=== PATIENT | female | born 1955 | race Caucasian/White ===

== ENCOUNTER 2018-09-07 14:15 | Inpatient (IN) ==
--- NOTE | 2018-09-07 15:44 | DR.GENAD ---
HPI Time Seen Time Seen by Provider: 09/07/18 15:29 PCP Primary Care Physician: ROCAEL Complaint/Symptoms Chief Complaint:: "I fell the day before yesterday and layed in the floor for around 16 hours until someone found me. I went to [place] and they said that they could not find anything wrong. Since then I can't use my left leg and I have been really confused feeling. I don't think they even scanned my back. I have had to have surgery on it in the past as well." Source History Provided: Patient Mode of Arrival Mode of Arrival: Wheelchair Timing Onset of Chief Complaint: 09/05/18 PMH PMH Past Medical History: Yes Past Medical History: COPD, CVA and Diabetes Past Surgical History: Yes Surgical History: Ortho Surgery and Other Past Surgical History Comment: Back surgery Family History History of Family Medical Conditions: Yes Family Medical History: Diabetes Mellitus, Cancer, [place], Coronary Artery Disease, Sudden Cardiac and Hypertension Social History Does patient currently use any type of tobacco product: No Have you used tobacco products in the last 12 months: No Type of Tobacco Use: None Does any household member use tobacco: No Alcohol Use: None Do you use any recreational Drugs:: No Lives With: Alone Lives Where: Home infectious screening In the last 2 months have you had wt loss of >10#?: NO Have you had fever, night sweats or hemotysis?: No Have you traveled outside the country in the last 6 months?: No Isolation: Standard PE Vital Signs Vitals: Temperature 97.8 F Pulse Rate 80 Respiratory Rate 18 Blood Pressure 143/74 O2 Sat by Pulse Oximetry 95 ROR Labs Reviewed Result Diagrams: 09/07/18 15:53 09/07/18 15:53 Laboratory: WBC 7.9 X10^3/uL (3.6-10.0) 09/07/18 15:53 RBC 3.81 X10^6/uL (3.5-5.4) 09/07/18 15:53 Hgb 12.1 g/dL (12.0-16.0) 09/07/18 15:53 Hct 36.0 % (36.0-47.0) 09/07/18 15:53 MCV 94.5 fL (80.0-100.0) 09/07/18 15:53 MCH 31.6 pg (27.0-34.0) 09/07/18 15:53 MCHC 33.5 g/dL (33.0-35.0) 09/07/18 15:53 RDW 12.9 % (11.6-16.5) 09/07/18 15:53 Plt Count 178 X10^3/uL (150.0-450.0) 09/07/18 15:53 Plt Count Comment Adequate (ADEQUATE) 09/07/18 15:53 MPV 8.7 fL (7.4-11.0) 09/07/18 15:53 Neut % (Auto) 76.3 % (42.0-75.0) H 09/07/18 15:53 Lymph % (Auto) 12.8 % (21.0-51.0) L 09/07/18 15:53 [place] % (Auto) 8.9 % (0.0-13.0) 09/07/18 15:53 Eos % (Auto) 1.0 % (0.9-2.9) 09/07/18 15:53 Baso % (Auto) 1.0 % (0.2-1.0) 09/07/18 15:53 Neut # (Auto) 6.0 x10^3/uL (2.2-4.8) H 09/07/18 15:53 Lymph # (Auto) 1.0 X10^3/uL (1.3-2.9) L 09/07/18 15:53 [place] # (Auto) 0.7 x10^3/uL (0.3-0.8) 09/07/18 15:53 Eos # (Auto) 0.1 x10^3/uL (0.0-0.2) 09/07/18 15:53 Baso # (Auto) 0.1 X10^3/uL (0.0-0.1) 09/07/18 15:53 Absolute Nucleated RBC 0.0 /100WBC 09/07/18 15:53 Plt Morphology Comment Normal (NORMAL) 09/07/18 15:53 RBC Morphology Normal (NORMAL) 09/07/18 15:53 Sodium 139 mmol/L (136-145) 09/07/18 15:53 Corrected Sodium 142 mmol/L (136-145) 09/07/18 15:53 Potassium 4.6 mmol/L (3.5-5.1) 09/07/18 15:53 Chloride 103 mmol/L (98-107) 09/07/18 15:53 Carbon Dioxide 26.2 mmol/L (21-32) 09/07/18 15:53 BUN 21 mg/dL (7-18) H 09/07/18 15:53 Creatinine 0.88 mg/dL (0.55-1.02) 09/07/18 15:53 Est GFR (MDRD) Af Amer > 60 (>60) 09/07/18 15:53 Est GFR (MDRD) Non-Af > 60 (>60) 09/07/18 15:53 Glucose 206 mg/dL (65-99) H 09/07/18 15:53 Calcium 9.4 mg/dL (8.5-10.1) 09/07/18 15:53 Corrected Calcium 10.4 mg/dL (8.5-10.1) H 09/07/18 15:53 Total Bilirubin 0.40 mg/dL (0.2-1.0) 09/07/18 15:53 AST 32 Units/L (15-37) 09/07/18 15:53 ALT 24 Units/L (12-78) 09/07/18 15:53 Alkaline Phosphatase 99 Units/L (46-116) 09/07/18 15:53 Creatine Kinase 461 Units/L (26-192) H 09/07/18 15:53 CK-MB (CK-2) 1.7 ng/mL (0-4.0) 09/07/18 15:53 CK/CKMB % Calc 0.4 % (<4) 09/07/18 15:53 Troponin I < 0.02 ng/mL (0-1.5) 09/07/18 15:53 Total Protein 7.0 g/dL (6.4-8.2) 09/07/18 15:53 Albumin 2.8 g/dL (3.4-5.0) L 09/07/18 15:53 Globulin 4.2 g/dL (2.5-4.5) 09/07/18 15:53 Albumin/Globulin Ratio 0.7 Ratio (1.1-2.1) L 09/07/18 15:53 Specimen Type Catherized urine 09/07/18 17:45 Urine Color Yellow (YELLOW) 09/07/18 17:45 Urine Appearance Cloudy (CLEAR) 09/07/18 17:45 Urine pH 5.0 (5.0 - 8.0) 09/07/18 17:45 Ur Specific [place] 1.020 (1.000-1.030) 09/07/18 17:45 Urine Protein 4+ (NEGATIVE) 09/07/18 17:45 Urine Glucose (UA) Negative (NEGATIVE) 09/07/18 17:45 Urine Ketones 3+ (NEGATIVE) 09/07/18 17:45 Urine Occult Blood 3+ (NEGATIVE) 09/07/18 17:45 Urine Nitrite Negative (NEGATIVE) 09/07/18 17:45 Urine Bilirubin 1+ (NEGATIVE) 09/07/18 17:45 Urine Urobilinogen 1+ (NORMAL) 09/07/18 17:45 Ur Leukocyte Esterase 1+ (NEGATIVE) 09/07/18 17:45 Urine RBC 0-2 /HPF (NONE SEEN) 09/07/18 17:45 Urine WBC 10-20 /HPF (NONE SEEN) 09/07/18 17:45 Ur Squamous Epith Cells Rare /HPF (NEGATIVE) 09/07/18 17:45 Amorphous Sediment Trace /HPF (NEGATIVE) 09/07/18 17:45 Urine Bacteria 4+ /HPF (NEGATIVE) 09/07/18 17:45 Hyaline Casts Few /LPF (NEGATIVE) 09/07/18 17:45 Granular Casts Moderate /LPF (NEGATIVE) 09/07/18 17:45 Ur Culture Indicated? Yes/culture set up 09/07/18 17:45
[2018-09-07 15:58] LABS: BASOPHILS # (AUTO) 0.1 X10^3/uL (0.0-0.1); EOSINOPHILS # (AUTO) 0.1 x10^3/uL (0.0-0.2); HEMOGLOBIN 12.1 g/dL (12.0-16.0); LYMPHOCYTES % (AUTO) 12.8 % (21.0-51.0); MEAN CORPUSCULAR HEMOGLOBIN 31.6 pg (27.0-34.0); MEAN CORPUSCULAR HGB CONC 33.5 g/dL (33.0-35.0); MEAN CORPUSCULAR VOLUME 94.5 fL (80.0-100.0); MEAN PLATELET VOLUME 8.7 fL (7.4-11.0); MONOCYTES # (AUTO) 0.7 x10^3/uL (0.3-0.8); MONOCYTES % (AUTO) 8.9 % (0.0-13.0); NEUTROPHILS % (AUTO) 76.3 % (42.0-75.0); PLATELET COUNT 178 X10^3/uL (150.0-450.0); RED BLOOD COUNT 3.81 X10^6/uL (3.5-5.4); RED CELL DISTRIBUTION WIDTH 12.9 % (11.6-16.5); WHITE BLOOD COUNT 7.9 X10^3/uL (3.6-10.0)
[2018-09-07 16:17] LABS: BLOOD UREA NITROGEN 21 mg/dL (7-18); CALCIUM 9.4 mg/dL (8.5-10.1); CARBON DIOXIDE 26.2 mmol/L (21-32); CHLORIDE 103 mmol/L (98-107); COR NA(FOR HYPERGLY) 142 mmol/L (136-145); CREATININE 0.88 mg/dL (0.55-1.02); SODIUM 139 mmol/L (136-145); TROPONIN I < 0.02 ng/mL (0-1.5); eGFR NON BLACK RACES > 60 (>60)
[2018-09-07 16:21] LABS: ALANINE AMINOTRANSFERASE 24 Units/L (12-78); ALBUMIN 2.8 g/dL (3.4-5.0); ALKALINE PHOSPHATASE 99 Units/L (46-116); ASPARTATE AMINO TRANSFERASE 32 Units/L (15-37); CKMB % 0.4 % (<4); COR CA(FOR HYPOALB) 10.4 mg/dL (8.5-10.1); CREATINE KINASE 461 Units/L (26-192); CREATINE KINASE MB 1.7 ng/mL (0-4.0)
[2018-09-07 16:26] LABS: PLATELET MORPHOLOGY COMMENT NORMAL (NORMAL)
--- NOTE | 2018-09-07 17:41 | RAD ---
Exam: Portable chest History: 63-year-old female with confusion. Comparison: None Findings: Mild cardiomegaly is seen. No significant vascular congestion however. Lungs are clear with no infiltrate or significant effusion on either side. A rounded opacity projecting over the cardiac silhouette may represent a large hiatal hernia. Bony thorax is unremarkable. Impression: 1. Mild cardiomegaly. Otherwise no acute abnormality is seen on this exam. 2. Large hiatal hernia is suspected. This could be confirmed with a lateral chest radiograph. Reported By:
[2018-09-07 17:56] LABS: BILIRUBIN,URINE 1+ (NEGATIVE); BLOOD/HEMOGLOBIN,URINE 3+ (NEGATIVE); GLUCOSE, URINE NEGATIVE (NEGATIVE); KETONES,URINE 3+ (NEGATIVE); LEUKOCYTE ESTERASE ,URINE 1+ (NEGATIVE); NITRITES,URINE NEGATIVE (NEGATIVE); PROTEIN,URINE 4+ (NEGATIVE); UROBILINOGEN,URINE 1+ (NORMAL)
[2018-09-07 18:00] LABS: APPEARANCE,URINE CLOUDY (CLEAR); COLOR,URINE YELLOW (YELLOW)
[2018-09-07 18:15] LABS: AMORPHOUS SEDIMENT,UR TRACE /HPF (NEGATIVE); BACTERIA,URINE 4+ /HPF (NEGATIVE); GRANULAR CASTS,URINE MODERATE /LPF (NEGATIVE); HYALINE CASTS, URINE FEW /LPF (NEGATIVE); RBC,URINE 0-2 /HPF (NONE SEEN); SQUAMOUS EPITHELIAL CELL,UR RARE /HPF (NEGATIVE)
[2018-09-07 22:15] LABS: BILIRUBIN,URINE NEGATIVE (NEGATIVE); BLOOD/HEMOGLOBIN,URINE 3+ (NEGATIVE); GLUCOSE, URINE NEGATIVE (NEGATIVE); KETONES,URINE 3+ (NEGATIVE); LEUKOCYTE ESTERASE ,URINE 1+ (NEGATIVE); NITRITES,URINE POSITIVE (NEGATIVE); PROTEIN,URINE 3+ (NEGATIVE); UROBILINOGEN,URINE NORMAL (NORMAL)
[2018-09-07 22:28] LABS: COLOR,URINE YELLOW (YELLOW)
[2018-09-07 22:29] LABS: APPEARANCE,URINE CLOUDY (CLEAR)
[2018-09-07 22:30] LABS: AMORPHOUS SEDIMENT,UR 1+ /HPF (NEGATIVE); BACTERIA,URINE 4+ /HPF (NEGATIVE); SQUAMOUS EPITHELIAL CELL,UR FEW /HPF (NEGATIVE)
[2018-09-07] MEDS: ZOFRAN INJ 4 MG VIAL IVP PRN (23:05)
[2018-09-07] MEDS: NS 1000 ML 1,000 ML IV SCH (23:05)
[2018-09-07 23:41] LABS: CKMB % 0.5 % (<4); CREATINE KINASE 360 Units/L (26-192); CREATINE KINASE MB 1.7 ng/mL (0-4.0); TROPONIN I < 0.02 ng/mL (0-1.5)
[2018-09-08] MEDS ORDERED: ULTRAM ONE ×2 (01:04→05:37)
[2018-09-08] MEDS: ULTRAM PO PRN ×5 (01:10→20:39)
[2018-09-08 05:17] LABS: BASOPHILS % (AUTO) 0.7 % (0.2-1.0); EOSINOPHILS # (AUTO) 0.2 x10^3/uL (0.0-0.2); EOSINOPHILS % (AUTO) 2.5 % (0.9-2.9); HEMATOCRIT 34.3 % (36.0-47.0); HEMOGLOBIN 11.5 g/dL (12.0-16.0); LYMPHOCYTES # (AUTO) 1.5 X10^3/uL (1.3-2.9); LYMPHOCYTES % (AUTO) 24.1 % (21.0-51.0); MEAN CORPUSCULAR HEMOGLOBIN 31.9 pg (27.0-34.0); MEAN CORPUSCULAR HGB CONC 33.5 g/dL (33.0-35.0); MEAN CORPUSCULAR VOLUME 95.1 fL (80.0-100.0); MEAN PLATELET VOLUME 8.7 fL (7.4-11.0); MONOCYTES # (AUTO) 0.7 x10^3/uL (0.3-0.8); MONOCYTES % (AUTO) 10.4 % (0.0-13.0); NEUTROPHILS % (AUTO) 62.3 % (42.0-75.0); PLATELET COUNT 179 X10^3/uL (150.0-450.0); RED CELL DISTRIBUTION WIDTH 12.6 % (11.6-16.5); WHITE BLOOD COUNT 6.4 X10^3/uL (3.6-10.0)
[2018-09-08 05:31] LABS: ALANINE AMINOTRANSFERASE 22 Units/L (12-78); ALBUMIN 2.6 g/dL (3.4-5.0); ALKALINE PHOSPHATASE 85 Units/L (46-116); ASPARTATE AMINO TRANSFERASE 25 Units/L (15-37); BLOOD UREA NITROGEN 17 mg/dL (7-18); CALCIUM 8.9 mg/dL (8.5-10.1); CARBON DIOXIDE 26.5 mmol/L (21-32); CHLORIDE 104 mmol/L (98-107); COR NA(FOR HYPERGLY) 141 mmol/L (136-145); CREATININE 0.75 mg/dL (0.55-1.02); MAGNESIUM 1.7 mg/dL (1.7-2.9); SODIUM 140 mmol/L (136-145); TOTAL PROTEIN 6.5 g/dL (6.4-8.2); eGFR NON BLACK RACES > 60 (>60)
[2018-09-08 05:55] LABS: CKMB % 0.5 % (<4); CREATINE KINASE 294 Units/L (26-192); CREATINE KINASE MB 1.4 ng/mL (0-4.0); TROPONIN I < 0.02 ng/mL (0-1.5)
[2018-09-08] MEDS ORDERED: DUONEB 0.5 MG/3 MG NEB PRN (09:01)
[2018-09-08] MEDS ORDERED: TYLENOL #3 TAB (W/CODEINE) PO PRN (10:42)
--- NOTE | 2018-09-08 11:06 | VAS ---
HISTORY: Left lower extremity pain and redness Study: Venous Doppler ultrasound left lower extremity Comparison: None TECHNIQUE: Multiple mendosa scale and color flow Doppler images of the deep venous system were obtained of the left lower extremity. FINDINGS: The deep venous system of the left lower extremity was evaluated from the level of the common femoral vein through the popliteal vein. Normal color flow and augmentation can be observed. In addition, normal compression is seen throughout the deep venous system. IMPRESSION: 1. Negative for DVT. Reported By:
[2018-09-08] MEDS: ROCEPHIN VIAL 1 GRAM IVP SCH (11:16)
[2018-09-08] MEDS: NS 1000 ML 1,000 ML IV SCH (11:18)
[2018-09-08] MEDS: HumaLOG SC SCH ×2 (12:10→18:26)
[2018-09-08] MEDS: NEURONTIN CAP 300 MG PO SCH ×2 (14:17→21:11)
[2018-09-08] MEDS ORDERED: NEURONTIN TAB 600 MG PO PRN (14:55)
[2018-09-08] MEDS ORDERED: ZOCOR TAB 40 MG PO SCH ×3 (15:00→21:00)
--- NOTE | 2018-09-08 15:00 | DR.H&P ---
H&P - History & Physical for Day of: H&P Date: 09/07/18 - Chief Complaint Chief Complaint: WEAKNESS, FALL, BACK PAIN - History of Present Illness History of Present Illness: 63 WF ER ADMISSION AFTER PRESENTING WITH CO I fell the day before yesterday and layed in the floor for around 16 hours until someone found me. I went to [place] and they said that they could not find anything wrong. Since then I can't use my left leg and I have been really confused feeling. I don't think they even scanned my back. I have had to have surgery on it in the past as well." PT HAD UA IN ER WITH UTI, STARTED ON IV ATBX, ADMITTED FOR TREATMENT AND EVALUATION OF WEAKNESS AND INJURIES FROM FALL. 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, Ortho Surgery - Family History Family Medical History: Diabetes Mellitus, Cancer, [place], Coronary Artery Disease, Sudden Cardiac , Hypertension - Social History Does patient currently use any type of tobacco product: No Have you used tobacco products in the last 12 months: No Type of Tobacco Use: Cigarettes How many years tobacco product used: 30 Does any household member use tobacco: No Alcohol Use: None Drug Use: None - Medications Home Medications: clopidogrel [From Plavix] Allergy (Verified 09/07/18 14:47) levofloxacin [From Levaquin] Allergy (Verified 09/07/18 14:47) nitrofurantoin [From Macrodantin] Allergy (Verified 09/07/18 14:47) Penicillins Allergy (Verified 09/07/18 14:47) CONTINUE taking the following medications acetaminophen-codeine [Tylenol-Codeine #3] 1 tab PO TID PRN 09/07/18 [History] alendronate 70 mg PO WEEKLY 09/07/18 [History] allopurinol 100 mg PO DAILY 09/07/18 [History] aspirin-dipyridamole [Aggrenox] 1 cap PO BID 09/07/18 [History] biotin 10,000 mcg PO DAILY 09/07/18 [History] carvedilol 1.5 tab PO BID 09/07/18 [History] cinnamon bark [Cinnamon] 2,000 mg PO BID 09/07/18 [History] coQ10 (ubiquinol) 300 mg PO HS 09/07/18 [History] cyanocobalamin (vitamin B-12) [Vitamin B-12] 1 tab PO DAILY 09/07/18 [History] folic acid 800 mcg PO DAILY 09/07/18 [History] furosemide 1 tab PO BID 09/07/18 [History] gabapentin 900 mg PO TID 09/07/18 [History] geriatric [id number] [Complete Senior] 1 tab PO DAILY 09/07/18 [History] insulin detemir U-100 [Levemir U-100 Insulin] 80 units SUBCUT BID 09/07/18 [History] insulin lispro [Humalog U-100 Insulin] 8 units SUBCUT AC 09/07/18 [History] melatonin 10 mg PO HS 09/07/18 [History] [id number]-[id number] oil-D3 [Fish Oil-Vit D3] 2 tab PO BID 09/07/18 [History] quetiapine 150 mg PO HS 09/07/18 [History] ranitidine HCl 1 tab PO BID 09/07/18 [History] sertraline 100 mg PO DAILY 09/07/18 [History] simvastatin 40 mg PO QHS 09/07/18 [History] sodium citrate [Nauzene Upset Stomach-Nausea] 230 - 460 mg PO Q6H 09/07/18 [Hist ory] - Review of Systems Constitutional: Weakness Eyes: No Symptoms Reported ENT: No Symptoms Reported Respiratory: No Symptoms Reported Cardiovascular: Edema Gastrointestinal: Nausea Genitourinary: No Symptoms Reported Musculoskeletal: Back Pain, Leg Pain Skin: No Symptoms Reported Neurological: Weakness - Physical Exam Vital Signs: Temperature 98.3 F Pulse Rate [Left Brachial] 70 Pulse Rate [Right Brachial] 79 Pulse Rate 80 Respiratory Rate 20 Blood Pressure [Left Arm] 167/73 Blood Pressure [Right Arm] 137/70 Blood Pressure 143/74 O2 Sat by Pulse Oximetry 90 Oriented: Normal Eyes: Normal Ear: Normal Nose: Normal Throat: Normal Respiratory: RLL Diminished, LLL Diminished Cardiovascular: Normal, Edema : Normal Auscultation: Bowel Sounds: Normal Palpation: Normal Tenderness: Normal Skin: Red, Tender, Hot (LLE) Musculoskeletal: Left, Leg, Back:Thoracic, Back:Lumbar, Swelling, Tender Psychiatric: Anxiety Speech Pattern: Clear, Appropriate - Assessment/Plan (1) Weakness Status: Acute Plan: ADMIT, GENTLE IV HYDRATION. IV ABTX FOR UTI, UC ORDERED. VERIFY HOME MEDICATION. PAIN CONTROL, BLOOD SUGAR MONITORING, SSI. BP MONITORING, CASE MANAGEMENT AND PT CONSULT (2) UTI (urinary tract infection) Status: Acute (3) Diabetes Status: Acute (4) Hypertension Status: Acute (5) Fall Status: Acute (6) Lower back injury Status: Acute - Allergies Allergies/Adverse Reactions: Allergies Allergy/AdvReac Type Severity Reaction Status Date / Time clopidogrel [From Plavix] Allergy Verified 09/07/18 14:47 levofloxacin [From Levaquin] Allergy Verified 09/07/18 14:47 nitrofurantoin Allergy Verified 09/07/18 14:47 [From Macrodantin] Penicillins Allergy Verified 09/07/18 14:47
--- NOTE | 2018-09-08 15:03 | PCM.PROG ---
Progress Note - Progress Note for Day of Date of Exam: 09/08/18 - Subjective Subjective: 63 WF ER ADMISSION ON 09/07 FOLLOWING DIFFUSE WEAKNESS AND FALL WITH NEW BACK INJURY. PT IS DM WITH HTN AND MORBID OBESITY. PT HAS UTI ON ADMISSION, CURRENLTY ON IV ROCEPHIN WITH CULTURE PENDING. PT HAS LE EDEMA, WORSE TO LLE AND REDNESS TO LEFT [place]A AREA AND INCREASED WARMTH. PT CO PAIN TO LLE SINCE FALL. PLAN TO OBTAIN CT L SPINE, CONTINUE BS CONTROL, IV ABTX, REPEAT AM LABS - Past Medical Family Social History Past Med/Fam/Surg Hx: No changes since H&P Allergies: Allergies clopidogrel [From Plavix] Allergy (Verified 09/07/18 14:47) levofloxacin [From Levaquin] Allergy (Verified 09/07/18 14:47) nitrofurantoin [From Macrodantin] Allergy (Verified 09/07/18 14:47) Penicillins Allergy (Verified 09/07/18 14:47) - Review of Systems ROS: No change since H&P - Vital Signs and I&O's Vital Signs: Temperature 98.3 F Pulse Rate [Left Brachial] 70 Pulse Rate [Right Brachial] 79 Pulse Rate 80 Respiratory Rate 20 Blood Pressure [Left Arm] 167/73 Blood Pressure [Right Arm] 137/70 Blood Pressure 143/74 O2 Sat by Pulse Oximetry 90 Intake and Output: Intake & Output 09/06/18 09/07/18 09/08/18 09/09/18 11:59 11:59 11:59 11:59 Intake Total 717 / 717 Output Total 500 / 500 Balance 217 / 217 - Physical Exam Oriented: Normal Eyes: Normal Ear: Normal Nose: Normal Throat: Normal Respiratory: Diminished Cardiovascular: Normal, Edema : Normal Auscultation: Bowel Sounds: Normal Tenderness: Normal Skin: Red, Tender, Hot (LLE) Musculoskeletal: Left, Leg, Back:Thoracic, Back:Lumbar, Swelling, Tender Psychiatric: Anxiety Speech Pattern: Clear, Appropriate - Laboratory and Diagnostics Result Diagrams: 09/08/18 04:58 09/08/18 04:58 Labs: 09/07/18 17:45 Urine,Catheterized Urine Culture - Preliminary Laboratory WBC 6.4 X10^3/uL (3.6-10.0) 09/08/18 04:58 RBC 3.60 X10^6/uL (3.5-5.4) 09/08/18 04:58 Hgb 11.5 g/dL (12.0-16.0) L 09/08/18 04:58 Hct 34.3 % (36.0-47.0) L 09/08/18 04:58 MCV 95.1 fL (80.0-100.0) 09/08/18 04:58 MCH 31.9 pg (27.0-34.0) 09/08/18 04:58 MCHC 33.5 g/dL (33.0-35.0) 09/08/18 04:58 RDW 12.6 % (11.6-16.5) 09/08/18 04:58 Plt Count 179 X10^3/uL (150.0-450.0) 09/08/18 04:58 Plt Count Comment Adequate (ADEQUATE) 09/07/18 15:53 MPV 8.7 fL (7.4-11.0) 09/08/18 04:58 Neut % (Auto) 62.3 % (42.0-75.0) 09/08/18 04:58 Lymph % (Auto) 24.1 % (21.0-51.0) 09/08/18 04:58 [place] % (Auto) 10.4 % (0.0-13.0) 09/08/18 04:58 Eos % (Auto) 2.5 % (0.9-2.9) 09/08/18 04:58 Baso % (Auto) 0.7 % (0.2-1.0) 09/08/18 04:58 Neut # (Auto) 4.0 x10^3/uL (2.2-4.8) 09/08/18 04:58 Lymph # (Auto) 1.5 X10^3/uL (1.3-2.9) 09/08/18 04:58 [place] # (Auto) 0.7 x10^3/uL (0.3-0.8) 09/08/18 04:58 Eos # (Auto) 0.2 x10^3/uL (0.0-0.2) 09/08/18 04:58 Baso # (Auto) 0.0 X10^3/uL (0.0-0.1) 09/08/18 04:58 Absolute Nucleated RBC 0.0 /100WBC 09/08/18 04:58 Plt Morphology Comment Normal (NORMAL) 09/07/18 15:53 RBC Morphology Normal (NORMAL) 09/07/18 15:53 Sodium 140 mmol/L (136-145) 09/08/18 04:58 Corrected Sodium 141 mmol/L (136-145) 09/08/18 04:58 Potassium 4.0 mmol/L (3.5-5.1) 09/08/18 04:58 Chloride 104 mmol/L (98-107) 09/08/18 04:58 Carbon Dioxide 26.5 mmol/L (21-32) 09/08/18 04:58 BUN 17 mg/dL (7-18) 09/08/18 04:58 Creatinine 0.75 mg/dL (0.55-1.02) 09/08/18 04:58 Est GFR (MDRD) Af Amer > 60 (>60) 09/08/18 04:58 Est GFR (MDRD) Non-Af > 60 (>60) 09/08/18 04:58 Glucose 138 mg/dL (65-99) H 09/08/18 04:58 Calcium 8.9 mg/dL (8.5-10.1) 09/08/18 04:58 Corrected Calcium 10.0 mg/dL (8.5-10.1) 09/08/18 04:58 Magnesium 1.7 mg/dL (1.7-2.9) 09/08/18 04:58 Total Bilirubin 0.40 mg/dL (0.2-1.0) 09/08/18 04:58 AST 25 Units/L (15-37) 09/08/18 04:58 ALT 22 Units/L (12-78) 09/08/18 04:58 Alkaline Phosphatase 85 Units/L (46-116) 09/08/18 04:58 Creatine Kinase 294 Units/L (26-192) H 09/08/18 04:58 CK-MB (CK-2) 1.4 ng/mL (0-4.0) 09/08/18 04:58 CK/CKMB % Calc 0.5 % (<4) 09/08/18 04:58 Troponin I < 0.02 ng/mL (0-1.5) 09/08/18 04:58 Total Protein 6.5 g/dL (6.4-8.2) 09/08/18 04:58 Albumin 2.6 g/dL (3.4-5.0) L 09/08/18 04:58 Globulin 3.9 g/dL (2.5-4.5) 09/08/18 04:58 Albumin/Globulin Ratio 0.7 Ratio (1.1-2.1) L 09/08/18 04:58 Specimen Type Catherized urine 09/07/18 22:06 Urine Color Yellow (YELLOW) 09/07/18 22:06 Urine Appearance Cloudy (CLEAR) 09/07/18 22:06 Urine pH 5.0 (5.0 - 8.0) 09/07/18 22:06 Ur Specific [place] 1.020 (1.000-1.030) 09/07/18 22:06 Urine Protein 3+ (NEGATIVE) 09/07/18 22:06 Urine Glucose (UA) Negative (NEGATIVE) 09/07/18 22:06 Urine Ketones 3+ (NEGATIVE) 09/07/18 22:06 Urine Occult Blood 3+ (NEGATIVE) 09/07/18 22:06 Urine Nitrite Positive (NEGATIVE) 09/07/18 22:06 Urine Bilirubin Negative (NEGATIVE) 09/07/18 22:06 Urine Urobilinogen Normal (NORMAL) 09/07/18 22:06 Ur Leukocyte Esterase 1+ (NEGATIVE) 09/07/18 22:06 Urine RBC 3-5 /HPF (NONE SEEN) 09/07/18 22:06 Urine WBC 3-5 /HPF (NONE SEEN) 09/07/18 22:06 Ur Squamous Epith Cells Few /HPF (NEGATIVE) 09/07/18 22:06 Amorphous Sediment 1+ /HPF (NEGATIVE) 09/07/18 22:06 Urine Bacteria 4+ /HPF (NEGATIVE) 09/07/18 22:06 Hyaline Casts Few /LPF (NEGATIVE) 09/07/18 17:45 Granular Casts Moderate /LPF (NEGATIVE) 09/07/18 17:45 Ur Culture Indicated? No/not indicated 09/07/18 22:06 - Plan (1) Weakness Status: Acute Plan: GENTLE IV HYDRATION. IV ABTX FOR UTI, UC ORDERED. VERIFY HOME MEDICATION. PAIN CONTROL, BLOOD SUGAR MONITORING, SSI. BP MONITORING, CASE MANAGEMENT AND PT CONSULT (2) UTI (urinary tract infection) Status: Acute (3) Diabetes Status: Acute (4) Hypertension Status: Acute (5) Fall Status: Acute (6) Lower back injury Status: Acute (7) Edema of left lower extremity Status: Acute Plan: VENOUS DOPPLER.
--- NOTE | 2018-09-08 16:50 | CT ---
HISTORY: Low back pain, history of fall Study: CT lumbar spine without contrast Comparison: None Technique: Multiple axial images of the lumbar spine were obtained from the thoracolumbar junction to the sacrum without the administration of IV contrast. Sagittal and coronal reformats were performed and reviewed. Findings: Alignment of the lumbar spine is maintained. No evidence for acute fracture or subluxation can be identified. Degenerative disc changes are noted throughout the lumbar spine with vacuum nitrogen disc phenomenon at L5-S1 and L1-2. Mild disc ridging and facet arthropathy is noted in the lower lumbar spine. No large soft tissue disc herniation is seen. The surrounding paraspinous soft tissues demonstrate a calcified fibroid uterus. IMPRESSION: 1. Degenerative changes as above with no acute bony findings identified. Reported By:
[2018-09-08] MEDS: SNACK - Diabetic Appropriate PO SCH ×2 (20:36→21:10)
[2018-09-08] MEDS: COREG TAB 12.5 MG PO SCH (20:37)
[2018-09-08] MEDS: ZOCOR TAB 40 MG PO SCH (20:38)
[2018-09-08] MEDS: ZANTAC PO SCH (20:39)
[2018-09-08] MEDS: ZOFRAN INJ 4 MG VIAL IVP PRN (20:49)
[2018-09-08] MEDS: SEROquel TAB 100 MG PO SCH (21:10)
[2018-09-08] MEDS: LEVEMIR SC SCH (21:10)
[2018-09-09] MEDS: NS 1000 ML 1,000 ML IV SCH ×3 (00:34→15:35)
[2018-09-09] MEDS: ULTRAM PO PRN ×2 (01:07→20:40)
[2018-09-09 05:25] LABS: BASOPHILS # (AUTO) 0.1 X10^3/uL (0.0-0.1); BASOPHILS % (AUTO) 1.1 % (0.2-1.0); EOSINOPHILS # (AUTO) 0.3 x10^3/uL (0.0-0.2); EOSINOPHILS % (AUTO) 4.2 % (0.9-2.9); HEMATOCRIT 33.4 % (36.0-47.0); HEMOGLOBIN 11.2 g/dL (12.0-16.0); LYMPHOCYTES % (AUTO) 32.7 % (21.0-51.0); MEAN CORPUSCULAR HEMOGLOBIN 31.6 pg (27.0-34.0); MEAN CORPUSCULAR HGB CONC 33.4 g/dL (33.0-35.0); MEAN CORPUSCULAR VOLUME 94.5 fL (80.0-100.0); MEAN PLATELET VOLUME 9.2 fL (7.4-11.0); MONOCYTES # (AUTO) 0.6 x10^3/uL (0.3-0.8); MONOCYTES % (AUTO) 10.6 % (0.0-13.0); NEUTROPHILS # (AUTO) 3.1 x10^3/uL (2.2-4.8); NEUTROPHILS % (AUTO) 51.4 % (42.0-75.0); PLATELET COUNT 163 X10^3/uL (150.0-450.0); RED BLOOD COUNT 3.54 X10^6/uL (3.5-5.4); RED CELL DISTRIBUTION WIDTH 12.9 % (11.6-16.5)
[2018-09-09] MEDS: NEURONTIN CAP 300 MG PO SCH ×3 (05:25→21:16)
[2018-09-09 05:35] LABS: ALANINE AMINOTRANSFERASE 23 Units/L (12-78); ALBUMIN 2.4 g/dL (3.4-5.0); ALKALINE PHOSPHATASE 71 Units/L (46-116); ASPARTATE AMINO TRANSFERASE 25 Units/L (15-37); BLOOD UREA NITROGEN 17 mg/dL (7-18); CALCIUM 8.6 mg/dL (8.5-10.1); CHLORIDE 106 mmol/L (98-107); COR CA(FOR HYPOALB) 9.9 mg/dL (8.5-10.1); COR NA(FOR HYPERGLY) 142 mmol/L (136-145); CREATININE 0.79 mg/dL (0.55-1.02); SODIUM 141 mmol/L (136-145); eGFR NON BLACK RACES > 60 (>60)
[2018-09-09] MEDS ORDERED: K-RIDER 10 MEQ/NS 100 ML 10 MEQ/100 ML BAG IV PRN ×2 (05:44→05:45)
[2018-09-09] MEDS ORDERED: K-DUR TAB 20 MEQ PO PRN (05:44)
[2018-09-09] MEDS ORDERED: KLOR-CON PO PRN ×2 (05:44→05:45)
[2018-09-09] MEDS ORDERED: MICRO K EXTEN CAP 10 MEQ PO PRN ×2 (05:44→05:45)
[2018-09-09] MEDS ORDERED: POTASSIUM CHL 60 MEQ/NS 0.45% 500 ML IV PRN ×2 (05:44→05:45)
[2018-09-09] MEDS ORDERED: MAGNESIUM SULFATE 1 GRAM/100 mL PREMIX 1 GM/100 ML BAG IV PRN (05:44)
[2018-09-09] MEDS ORDERED: POTASSIUM CHL 40 MEQ/NS 0.45% 500 ML IV PRN ×2 (05:44→05:45)
[2018-09-09] MEDS ORDERED: POTASSIUM CHLORIDE LIQ 20 MEQ UDC PO PRN ×2 (05:44→05:45)
[2018-09-09] MEDS: HumaLOG SC SCH ×3 (06:24→17:15)
[2018-09-09] MEDS: K-DUR TAB 20 MEQ PO PRN (06:46)
[2018-09-09] MEDS: MAGNESIUM SULFATE 1 GRAM/100 mL PREMIX 1 GM/100 ML BAG IV PRN ×2 (06:46→09:02)
[2018-09-09] MEDS ORDERED: ZOLOFT PO ONE (07:14)
[2018-09-09 08:13] VITALS: BMI 45.9
[2018-09-09] MEDS: VITAMIN B-12 PO SCH (08:26)
[2018-09-09] MEDS: LASIX PO SCH (08:27)
[2018-09-09] MEDS: ZANTAC PO SCH ×2 (08:27→20:39)
[2018-09-09] MEDS: COREG TAB 12.5 MG PO SCH ×2 (08:27→20:35)
[2018-09-09] MEDS: ZYLOPRIM PO SCH (08:28)
[2018-09-09] MEDS: ZOLOFT PO SCH (08:28)
[2018-09-09] MEDS: ROCEPHIN VIAL 1 GRAM IVP SCH (08:29)
[2018-09-09] MEDS: PATIENT'S HOME MEDICATION PO SCH ×2 (08:58→20:37)
[2018-09-09] MEDS ORDERED: PATIENT'S HOME MEDICATION PO SCH (09:00)
[2018-09-09] MEDS ORDERED: ZOLOFT PO SCH (09:00)
[2018-09-09] MEDS: LEVEMIR SC SCH ×2 (09:07→20:36)
[2018-09-09 14:31] LABS: STOOL FOR WBC POSITIVE (NEGATIVE)
[2018-09-09 15:13] LABS: CRYPTOSPORIDIUM PARVUM ANTIGEN NEGATIVE (NEGATIVE); GIARDIA LAMBLIA ANTIGEN NEGATIVE (NEGATIVE)
[2018-09-09] MEDS: SNACK - Diabetic Appropriate PO SCH ×2 (20:34)
[2018-09-09] MEDS: SEROquel TAB 100 MG PO SCH (20:38)
[2018-09-09] MEDS: ZOCOR TAB 40 MG PO SCH (20:39)
[2018-09-10] MEDS: NS 1000 ML 1,000 ML IV SCH ×3 (00:30→20:33)
[2018-09-10 05:22] LABS: BASOPHILS # (AUTO) 0.1 X10^3/uL (0.0-0.1); BASOPHILS % (AUTO) 1.2 % (0.2-1.0); EOSINOPHILS # (AUTO) 0.3 x10^3/uL (0.0-0.2); EOSINOPHILS % (AUTO) 4.3 % (0.9-2.9); HEMATOCRIT 31.1 % (36.0-47.0); HEMOGLOBIN 10.4 g/dL (12.0-16.0); LYMPHOCYTES # (AUTO) 2.1 X10^3/uL (1.3-2.9); LYMPHOCYTES % (AUTO) 34.6 % (21.0-51.0); MEAN CORPUSCULAR HEMOGLOBIN 31.5 pg (27.0-34.0); MEAN CORPUSCULAR HGB CONC 33.5 g/dL (33.0-35.0); MEAN CORPUSCULAR VOLUME 94.2 fL (80.0-100.0); MEAN PLATELET VOLUME 8.9 fL (7.4-11.0); MONOCYTES # (AUTO) 0.6 x10^3/uL (0.3-0.8); MONOCYTES % (AUTO) 10.8 % (0.0-13.0); NEUTROPHILS # (AUTO) 2.9 x10^3/uL (2.2-4.8); NEUTROPHILS % (AUTO) 49.1 % (42.0-75.0); PLATELET COUNT 167 X10^3/uL (150.0-450.0); RED CELL DISTRIBUTION WIDTH 12.6 % (11.6-16.5); WHITE BLOOD COUNT 5.9 X10^3/uL (3.6-10.0)
[2018-09-10] MEDS: NEURONTIN CAP 300 MG PO SCH ×3 (05:28→21:25)
[2018-09-10 05:34] LABS: ALANINE AMINOTRANSFERASE 20 Units/L (12-78); ALBUMIN 2.3 g/dL (3.4-5.0); ALKALINE PHOSPHATASE 67 Units/L (46-116); ASPARTATE AMINO TRANSFERASE 15 Units/L (15-37); BLOOD UREA NITROGEN 16 mg/dL (7-18); CALCIUM 8.2 mg/dL (8.5-10.1); CARBON DIOXIDE 27.1 mmol/L (21-32); CHLORIDE 108 mmol/L (98-107); COR CA(FOR HYPOALB) 9.6 mg/dL (8.5-10.1); CREATININE 0.79 mg/dL (0.55-1.02); MAGNESIUM 1.8 mg/dL (1.7-2.9); SODIUM 144 mmol/L (136-145); TOTAL PROTEIN 5.7 g/dL (6.4-8.2); eGFR NON BLACK RACES > 60 (>60)
[2018-09-10] MEDS: K-DUR TAB 20 MEQ PO PRN (06:19)
[2018-09-10] MEDS: HumaLOG SC SCH ×3 (07:39→17:36)
[2018-09-10] MEDS ORDERED: ZOLOFT PO ONE (08:14)
[2018-09-10] MEDS: VITAMIN B-12 PO SCH (08:25)
[2018-09-10] MEDS: ZYLOPRIM PO SCH (08:25)
[2018-09-10] MEDS: LASIX PO SCH (08:25)
[2018-09-10] MEDS: COREG TAB 12.5 MG PO SCH ×2 (08:25→20:33)
[2018-09-10] MEDS: ZOLOFT PO SCH (08:26)
[2018-09-10] MEDS: PATIENT'S HOME MEDICATION PO SCH ×2 (08:26→20:39)
[2018-09-10] MEDS: ZANTAC PO SCH ×2 (08:26→20:34)
[2018-09-10] MEDS: ROCEPHIN VIAL 1 GRAM IVP SCH (08:27)
[2018-09-10] MEDS: LEVEMIR SC SCH (08:38)
[2018-09-10] MEDS: MAGNESIUM SULFATE 1 GRAM/100 mL PREMIX 1 GM/100 ML BAG IV PRN ×2 (09:01→10:36)
[2018-09-10] MEDS ORDERED: VALIUM PO ONE (09:24)
[2018-09-10] MEDS: ULTRAM PO PRN ×2 (12:59→20:34)
--- NOTE | 2018-09-10 16:35 | MRI ---
STUDY: MRI OF THE LUMBAR SPINE HISTORY: Low back pain. Comparison: None. Technique: Multiplanar multi-sequence MRI of the lumbar spine was performed. Sagittal T1, sagittal T2, and STIR images, axial T1, and axial T2 images were obtained. Findings: Sagittal images: Vertebral body heights and alignment are within normal limits. Marrow signal is heterogeneous. There is multilevel chronic degenerative endplate change identified. No significant marrow edema is identified. There is multilevel degenerative disc disease, most notable at L5/S1. There appears to be a small fatty filum terminale. The conus medullaris is normal in appearance terminating at the level of L1/2. Axial images: T12 -- L1: Normal. L1 -- L2: There is a shallow disc bulge, bilateral facet arthropathy and ligamentum flavum infolding. The central canal is adequate. There is mild bilateral neural foraminal stenosis. L2 -- L3: There is a broad-based disc bulge, bilateral facet arthropathy and ligamentum flavum infolding. The combination of these findings results in mild central canal stenosis. There is mild bilateral neural foraminal stenosis. L3 -- L4: There is a broad-based disc bulge, bilateral facet arthropathy and ligamentum flavum infolding. This results in mild central canal stenosis. The neural foramina are adequate. L4 -- L5: There is a broad-based disc bulge, bilateral facet arthropathy and ligamentum flavum infolding. The combination of these findings results in moderate central canal stenosis. The neural foramina are adequate. L5 -- S1: There is a broad-based disc bulge and bilateral facet arthropathy. There appears to be surgical defect from laminectomies at L5. The central canal is adequate. There is [id number] bilateral neural foraminal stenosis. IMPRESSION: 1. Multilevel lumbar spondylosis and postsurgical change at L5. 2. Moderate spinal stenosis at L4/5. 3. Mild spinal stenosis at L2/3 and L3/4. 4. Multilevel neural foraminal stenosis. Please see above for detail. Reported By:
--- NOTE | 2018-09-10 17:30 | PCM.PROG ---
Progress Note - Progress Note for Day of Date of Exam: 09/10/18 - Subjective Subjective: 63 WF ER ADMISSION ON 09/07 FOLLOWING DIFFUSE WEAKNESS AND FALL WITH NEW BACK INJURY. PT IS DM WITH HTN AND MORBID OBESITY. PT HAS UTI ON ADMISSION, CURRENLTY ON IV ROCEPHIN WITH CULTURE POSITIVE FOR +ECOLI. PT HAS LE EDEMA, WORSE TO LLE AND REDNESS TO LEFT GAXIOLA AREA AND INCREASED WARMTH, VENOUS DOPPLER NEGATIVE FOR DVT. PT CO PAIN TO LLE SINCE FALL. PT TO HAVE MRI THIS AM, AND WILL CONSULT CASE MANAGEMENT FOR REHAB THERAPY - Past Medical Family Social History Past Med/Fam/Surg Hx: No changes since H&P Allergies: Allergies clopidogrel [From Plavix] Allergy (Verified 09/07/18 14:47) levofloxacin [From Levaquin] Allergy (Verified 09/07/18 14:47) nitrofurantoin [From Macrodantin] Allergy (Verified 09/07/18 14:47) Penicillins Allergy (Verified 09/07/18 14:47) - Review of Systems ROS: No change since H&P - Vital Signs and I&O's Vital Signs: Temperature 98.2 F Pulse Rate [Left Brachial] 66 Pulse Rate [Right Brachial] 79 Pulse Rate 71 Respiratory Rate 22 Blood Pressure [Left Arm] 145/67 Blood Pressure [Right Arm] 137/70 Blood Pressure 143/74 O2 Sat by Pulse Oximetry 96 Intake and Output: Intake & Output 09/08/18 09/09/18 09/10/18 09/11/18 11:59 11:59 11:59 11:59 Intake Total 717 / 717 1960 / 1960 3260 / 3260 1490 / 1490 Output Total 500 / 500 675 / 675 1825 / 1825 1800 / 1800 Balance 217 / 217 1285 / 1285 1435 / 1435 -310 / -310 - Physical Exam Oriented: Normal Eyes: Normal Ear: Normal Nose: Normal Throat: Normal Respiratory: Diminished Cardiovascular: Normal, Edema : Normal Auscultation: Bowel Sounds: Normal Tenderness: Normal Skin: Red, Tender, Hot (LLE) Musculoskeletal: Left, Leg, Back:Thoracic, Back:Lumbar, Swelling, Tender Psychiatric: Anxiety Speech Pattern: Clear, Appropriate - Laboratory and Diagnostics Result Diagrams: 09/10/18 04:41 09/10/18 14:56 Labs: 09/09/18 13:44 Stool Stool Culture - Preliminary 09/09/18 13:44 Stool - Final 09/07/18 17:45 Urine,Catheterized Urine Culture - Final Escherichia Coli Laboratory WBC 5.9 X10^3/uL (3.6-10.0) 09/10/18 04:41 RBC 3.30 X10^6/uL (3.5-5.4) L 09/10/18 04:41 Hgb 10.4 g/dL (12.0-16.0) L 09/10/18 04:41 Hct 31.1 % (36.0-47.0) L 09/10/18 04:41 MCV 94.2 fL (80.0-100.0) 09/10/18 04:41 MCH 31.5 pg (27.0-34.0) 09/10/18 04:41 MCHC 33.5 g/dL (33.0-35.0) 09/10/18 04:41 RDW 12.6 % (11.6-16.5) 09/10/18 04:41 Plt Count 167 X10^3/uL (150.0-450.0) 09/10/18 04:41 Plt Count Comment Adequate (ADEQUATE) 09/07/18 15:53 MPV 8.9 fL (7.4-11.0) 09/10/18 04:41 Neut % (Auto) 49.1 % (42.0-75.0) 09/10/18 04:41 Lymph % (Auto) 34.6 % (21.0-51.0) 09/10/18 04:41 [place] % (Auto) 10.8 % (0.0-13.0) 09/10/18 04:41 Eos % (Auto) 4.3 % (0.9-2.9) H 09/10/18 04:41 Baso % (Auto) 1.2 % (0.2-1.0) H 09/10/18 04:41 Neut # (Auto) 2.9 x10^3/uL (2.2-4.8) 09/10/18 04:41 Lymph # (Auto) 2.1 X10^3/uL (1.3-2.9) 09/10/18 04:41 [place] # (Auto) 0.6 x10^3/uL (0.3-0.8) 09/10/18 04:41 Eos # (Auto) 0.3 x10^3/uL (0.0-0.2) H 09/10/18 04:41 Baso # (Auto) 0.1 X10^3/uL (0.0-0.1) 09/10/18 04:41 Absolute Nucleated RBC 0.0 /100WBC 09/10/18 04:41 Plt Morphology Comment Normal (NORMAL) 09/07/18 15:53 RBC Morphology Normal (NORMAL) 09/07/18 15:53 Sodium 144 mmol/L (136-145) 09/10/18 04:41 Corrected Sodium TNP 09/10/18 04:41 Potassium 3.7 mmol/L (3.5-5.1) 09/10/18 14:56 Chloride 108 mmol/L (98-107) H 09/10/18 04:41 Carbon Dioxide 27.1 mmol/L (21-32) 09/10/18 04:41 BUN 16 mg/dL (7-18) 09/10/18 04:41 Creatinine 0.79 mg/dL (0.55-1.02) 09/10/18 04:41 Est GFR (MDRD) Af Amer > 60 (>60) 09/10/18 04:41 Est GFR (MDRD) Non-Af > 60 (>60) 09/10/18 04:41 Glucose 68 mg/dL (65-99) 09/10/18 04:41 Calcium 8.2 mg/dL (8.5-10.1) L 09/10/18 04:41 Corrected Calcium 9.6 mg/dL (8.5-10.1) 09/10/18 04:41 Magnesium 1.8 mg/dL (1.7-2.9) 09/10/18 04:41 Total Bilirubin 0.20 mg/dL (0.2-1.0) 09/10/18 04:41 AST 15 Units/L (15-37) 09/10/18 04:41 ALT 20 Units/L (12-78) 09/10/18 04:41 Alkaline Phosphatase 67 Units/L (46-116) 09/10/18 04:41 Creatine Kinase 294 Units/L (26-192) H 09/08/18 04:58 CK-MB (CK-2) 1.4 ng/mL (0-4.0) 09/08/18 04:58 CK/CKMB % Calc 0.5 % (<4) 09/08/18 04:58 Troponin I < 0.02 ng/mL (0-1.5) 09/08/18 04:58 Total Protein 5.7 g/dL (6.4-8.2) L 09/10/18 04:41 Albumin 2.3 g/dL (3.4-5.0) L 09/10/18 04:41 Globulin 3.4 g/dL (2.5-4.5) 09/10/18 04:41 Albumin/Globulin Ratio 0.7 Ratio (1.1-2.1) L 09/10/18 04:41 Specimen Type Catherized urine 09/07/18 22:06 Urine Color Yellow (YELLOW) 09/07/18 22:06 Urine Appearance Cloudy (CLEAR) 09/07/18 22:06 Urine pH 5.0 (5.0 - 8.0) 09/07/18 22:06 Ur Specific [place] 1.020 (1.000-1.030) 09/07/18 22:06 Urine Protein 3+ (NEGATIVE) 09/07/18 22:06 Urine Glucose (UA) Negative (NEGATIVE) 09/07/18 22:06 Urine Ketones 3+ (NEGATIVE) 09/07/18 22:06 Urine Occult Blood 3+ (NEGATIVE) 09/07/18 22:06 Urine Nitrite Positive (NEGATIVE) 09/07/18 22:06 Urine Bilirubin Negative (NEGATIVE) 09/07/18 22:06 Urine Urobilinogen Normal (NORMAL) 09/07/18 22:06 Ur Leukocyte Esterase 1+ (NEGATIVE) 09/07/18 22:06 Urine RBC 3-5 /HPF (NONE SEEN) 09/07/18 22:06 Urine WBC 3-5 /HPF (NONE SEEN) 09/07/18 22:06 Ur Squamous Epith Cells Few /HPF (NEGATIVE) 09/07/18 22:06 Amorphous Sediment 1+ /HPF (NEGATIVE) 09/07/18 22:06 Urine Bacteria 4+ /HPF (NEGATIVE) 09/07/18 22:06 Hyaline Casts Few /LPF (NEGATIVE) 09/07/18 17:45 Granular Casts Moderate /LPF (NEGATIVE) 09/07/18 17:45 Ur Culture Indicated? No/not indicated 09/07/18 22:06 Stool Description 5g,mucoid,brown/yell 09/09/18 13:44 Stl Occult Blood (IFOB) Negative (NEGATIVE) 09/09/18 13:44 Stool for White Cells Positive (NEGATIVE) A 09/09/18 13:44 Stl C. diff Tox B Gene Negative (NEGATIVE) 09/09/18 13:44 Stl C. diff [id number] Negative (NEGATIVE) 09/09/18 13:44 Cryptosporid parvum Ag Negative (NEGATIVE) 09/09/18 13:44 Giardia lamblia Ag Negative (NEGATIVE) 09/09/18 13:44 - Plan (1) Weakness Status: Acute Plan: GENTLE IV HYDRATION. IV ABTX FOR UTI. VERIFY HOME MEDICATION. PAIN CONTROL, BLOOD SUGAR MONITORING, SSI. BP MONITORING, CASE MANAGEMENT AND PT CO NSULT (2) UTI (urinary tract infection) Status: Acute (3) Diabetes Status: Acute (4) Hypertension Status: Acute (5) Fall Status: Acute (6) Lower back injury Status: Acute (7) Edema of left lower extremity Status: Acute Plan: VENOUS DOPPLER. (8) Degenerative lumbar spinal stenosis Status: Acute Plan: PAIN CONTROL, PHYSICAL THERAPY
[2018-09-10] MEDS: SNACK - Diabetic Appropriate PO SCH ×2 (20:32)
[2018-09-10] MEDS: ZOCOR TAB 40 MG PO SCH (20:35)
[2018-09-10] MEDS: SEROquel TAB 100 MG PO SCH (20:36)
[2018-09-11] MEDS: ULTRAM PO PRN ×2 (00:56→21:13)
[2018-09-11] MEDS: NS 1000 ML 1,000 ML IV SCH ×3 (02:05→16:17)
[2018-09-11 06:11] LABS: BASOPHILS # (AUTO) 0.1 X10^3/uL (0.0-0.1); BASOPHILS % (AUTO) 0.9 % (0.2-1.0); EOSINOPHILS # (AUTO) 0.3 x10^3/uL (0.0-0.2); EOSINOPHILS % (AUTO) 5.2 % (0.9-2.9); HEMATOCRIT 33.3 % (36.0-47.0); LYMPHOCYTES % (AUTO) 31.5 % (21.0-51.0); MEAN CORPUSCULAR HEMOGLOBIN 31.3 pg (27.0-34.0); MEAN CORPUSCULAR VOLUME 94.7 fL (80.0-100.0); MEAN PLATELET VOLUME 8.8 fL (7.4-11.0); MONOCYTES # (AUTO) 0.7 x10^3/uL (0.3-0.8); MONOCYTES % (AUTO) 10.5 % (0.0-13.0); NEUTROPHILS # (AUTO) 3.3 x10^3/uL (2.2-4.8); NEUTROPHILS % (AUTO) 51.9 % (42.0-75.0); PLATELET COUNT 164 X10^3/uL (150.0-450.0); RED BLOOD COUNT 3.52 X10^6/uL (3.5-5.4); RED CELL DISTRIBUTION WIDTH 12.5 % (11.6-16.5); WHITE BLOOD COUNT 6.4 X10^3/uL (3.6-10.0)
[2018-09-11 06:21] LABS: ALANINE AMINOTRANSFERASE 19 Units/L (12-78); ALBUMIN 2.3 g/dL (3.4-5.0); ALKALINE PHOSPHATASE 68 Units/L (46-116); ASPARTATE AMINO TRANSFERASE 14 Units/L (15-37); BLOOD UREA NITROGEN 14 mg/dL (7-18); CALCIUM 8.3 mg/dL (8.5-10.1); CARBON DIOXIDE 27.3 mmol/L (21-32); CHLORIDE 109 mmol/L (98-107); COR CA(FOR HYPOALB) 9.7 mg/dL (8.5-10.1); CREATININE 0.83 mg/dL (0.55-1.02); SODIUM 144 mmol/L (136-145); TOTAL PROTEIN 5.7 g/dL (6.4-8.2); eGFR NON BLACK RACES > 60 (>60)
[2018-09-11] MEDS: NEURONTIN CAP 300 MG PO SCH ×3 (06:21→21:10)
[2018-09-11] MEDS: HumaLOG SC SCH ×3 (06:21→17:23)
[2018-09-11] MEDS: K-DUR TAB 20 MEQ PO PRN (06:38)
[2018-09-11] MEDS ORDERED: ZOLOFT PO ONE (09:24)
[2018-09-11] MEDS: ZOLOFT PO SCH (09:31)
[2018-09-11] MEDS: ROCEPHIN VIAL 1 GRAM IVP SCH (09:31)
[2018-09-11] MEDS: LASIX PO SCH (09:31)
[2018-09-11] MEDS: ZYLOPRIM PO SCH (09:31)
[2018-09-11] MEDS: ZANTAC PO SCH ×2 (09:31→20:26)
[2018-09-11] MEDS: VITAMIN B-12 PO SCH (09:31)
[2018-09-11] MEDS: COREG TAB 12.5 MG PO SCH ×2 (09:31→20:26)
[2018-09-11] MEDS: KENALOG CREAM TOP SCH ×3 (13:01→21:09)
[2018-09-11] MEDS: PATIENT'S HOME MEDICATION PO SCH ×2 (13:41→20:27)
[2018-09-11] MEDS: MAGNESIUM SULFATE 1 GRAM/100 mL PREMIX 1 GM/100 ML BAG IV PRN ×2 (14:59→16:37)
[2018-09-11] MEDS: HumuLIN R SUBCUT PRN ×2 (16:16→21:10)
--- NOTE | 2018-09-11 16:33 | PCM.PROG ---
Progress Note - Progress Note for Day of Date of Exam: 09/11/18 - Subjective Subjective: -63 WF ER ADMISSION ON 09/07 FOLLOWING DIFFUSE WEAKNESS AND FALL WITH NEW BACK INJURY. PT IS DM WITH HTN AND MORBID OBESITY. PT HAS UTI ON ADMISSION, CURRENLTY ON IV ROCEPHIN WITH CULTURE POSITIVE FOR +ECOLI. PT HAS LE EDEMA, WORSE TO LLE AND REDNESS TO LEFT GAXIOLA AREA AND INCREASED WARMTH, VENOUS DOPPLER NEGATIVE FOR DVT. PT CO PAIN TO LLE SINCE FALL. 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 CONSULTED CASE MANAGEMENT FOR REHAB THERAPY - Past Medical Family Social History Past Med/Fam/Surg Hx: No changes since H&P Allergies: Allergies clopidogrel [From Plavix] Allergy (Verified 09/07/18 14:47) levofloxacin [From Levaquin] Allergy (Verified 09/07/18 14:47) nitrofurantoin [From Macrodantin] Allergy (Verified 09/07/18 14:47) Penicillins Allergy (Verified 09/07/18 14:47) - Review of Systems ROS: No change since H&P - Vital Signs and I&O's Vital Signs: Temperature 97.6 F Pulse Rate [Left Brachial] 70 Pulse Rate [Right Brachial] 79 Pulse Rate 81 Respiratory Rate 20 Blood Pressure [Left Arm] 149/65 Blood Pressure [Right Arm] 137/70 Blood Pressure 143/74 O2 Sat by Pulse Oximetry 91 Intake and Output: Intake & Output 09/09/18 09/10/18 09/11/18 09/12/18 11:59 11:59 11:59 11:59 Intake Total 1959 / 1959 3260 / 3260 3224 / 3224 680 / 680 Output Total 675 / 675 1825 / 1825 3000 / 3000 Balance 1285 / 1285 1435 / 1435 224 / 224 680 / 680 - Physical Exam Oriented: Normal Eyes: Normal Ear: Normal Nose: Normal Throat: Normal Respiratory: Diminished Cardiovascular: Normal, Edema : Normal Auscultation: Bowel Sounds: Normal Tenderness: Normal Skin: Red, Tender, Hot (LLE) Musculoskeletal: Left, Leg, Back:Thoracic, Back:Lumbar, Swelling, Tender Psychiatric: Anxiety Speech Pattern: Clear, Appropriate - Laboratory and Diagnostics Result Diagrams: 09/11/18 05:43 09/11/18 05:43 Labs: 09/09/18 13:44 Stool Stool Culture - Final 09/09/18 13:44 Stool - Final 09/07/18 17:45 Urine,Catheterized Urine Culture - Final Escherichia Coli Laboratory WBC 6.4 X10^3/uL (3.6-10.0) 09/11/18 05:43 RBC 3.52 X10^6/uL (3.5-5.4) 09/11/18 05:43 Hgb 11.0 g/dL (12.0-16.0) L 09/11/18 05:43 Hct 33.3 % (36.0-47.0) L 09/11/18 05:43 MCV 94.7 fL (80.0-100.0) 09/11/18 05:43 MCH 31.3 pg (27.0-34.0) 09/11/18 05:43 MCHC 33.0 g/dL (33.0-35.0) 09/11/18 05:43 RDW 12.5 % (11.6-16.5) 09/11/18 05:43 Plt Count 164 X10^3/uL (150.0-450.0) 09/11/18 05:43 Plt Count Comment Adequate (ADEQUATE) 09/07/18 15:53 MPV 8.8 fL (7.4-11.0) 09/11/18 05:43 Neut % (Auto) 51.9 % (42.0-75.0) 09/11/18 05:43 Lymph % (Auto) 31.5 % (21.0-51.0) 09/11/18 05:43 [place] % (Auto) 10.5 % (0.0-13.0) 09/11/18 05:43 Eos % (Auto) 5.2 % (0.9-2.9) H 09/11/18 05:43 Baso % (Auto) 0.9 % (0.2-1.0) 09/11/18 05:43 Neut # (Auto) 3.3 x10^3/uL (2.2-4.8) 09/11/18 05:43 Lymph # (Auto) 2.0 X10^3/uL (1.3-2.9) 09/11/18 05:43 [place] # (Auto) 0.7 x10^3/uL (0.3-0.8) 09/11/18 05:43 Eos # (Auto) 0.3 x10^3/uL (0.0-0.2) H 09/11/18 05:43 Baso # (Auto) 0.1 X10^3/uL (0.0-0.1) 09/11/18 05:43 Absolute Nucleated RBC 0.0 /100WBC 09/11/18 05:43 Plt Morphology Comment Normal (NORMAL) 09/07/18 15:53 RBC Morphology Normal (NORMAL) 09/07/18 15:53 Sodium 144 mmol/L (136-145) 09/11/18 05:43 Corrected Sodium TNP 09/11/18 05:43 Potassium 3.5 mmol/L (3.5-5.1) 09/11/18 05:43 Chloride 109 mmol/L (98-107) H 09/11/18 05:43 Carbon Dioxide 27.3 mmol/L (21-32) 09/11/18 05:43 BUN 14 mg/dL (7-18) 09/11/18 05:43 Creatinine 0.83 mg/dL (0.55-1.02) 09/11/18 05:43 Est GFR (MDRD) Af Amer > 60 (>60) 09/11/18 05:43 Est GFR (MDRD) Non-Af > 60 (>60) 09/11/18 05:43 Glucose 109 mg/dL (65-99) H 09/11/18 05:43 Calcium 8.3 mg/dL (8.5-10.1) L 09/11/18 05:43 Corrected Calcium 9.7 mg/dL (8.5-10.1) 09/11/18 05:43 Magnesium 1.9 mg/dL (1.7-2.9) 09/11/18 05:43 Total Bilirubin 0.20 mg/dL (0.2-1.0) 09/11/18 05:43 AST 14 Units/L (15-37) L 09/11/18 05:43 ALT 19 Units/L (12-78) 09/11/18 05:43 Alkaline Phosphatase 68 Units/L (46-116) 09/11/18 05:43 Creatine Kinase 294 Units/L (26-192) H 09/08/18 04:58 CK-MB (CK-2) 1.4 ng/mL (0-4.0) 09/08/18 04:58 CK/CKMB % Calc 0.5 % (<4) 09/08/18 04:58 Troponin I < 0.02 ng/mL (0-1.5) 09/08/18 04:58 Total Protein 5.7 g/dL (6.4-8.2) L 09/11/18 05:43 Albumin 2.3 g/dL (3.4-5.0) L 09/11/18 05:43 Globulin 3.4 g/dL (2.5-4.5) 09/11/18 05:43 Albumin/Globulin Ratio 0.7 Ratio (1.1-2.1) L 09/11/18 05:43 Specimen Type Catherized urine 09/07/18 22:06 Urine Color Yellow (YELLOW) 09/07/18 22:06 Urine Appearance Cloudy (CLEAR) 09/07/18 22:06 Urine pH 5.0 (5.0 - 8.0) 09/07/18 22:06 Ur Specific [place] 1.020 (1.000-1.030) 09/07/18 22:06 Urine Protein 3+ (NEGATIVE) 09/07/18 22:06 Urine Glucose (UA) Negative (NEGATIVE) 09/07/18 22:06 Urine Ketones 3+ (NEGATIVE) 09/07/18 22:06 Urine Occult Blood 3+ (NEGATIVE) 09/07/18 22:06 Urine Nitrite Positive (NEGATIVE) 09/07/18 22:06 Urine Bilirubin Negative (NEGATIVE) 09/07/18 22:06 Urine Urobilinogen Normal (NORMAL) 09/07/18 22:06 Ur Leukocyte Esterase 1+ (NEGATIVE) 09/07/18 22:06 Urine RBC 3-5 /HPF (NONE SEEN) 09/07/18 22:06 Urine WBC 3-5 /HPF (NONE SEEN) 09/07/18 22:06 Ur Squamous Epith Cells Few /HPF (NEGATIVE) 09/07/18 22:06 Amorphous Sediment 1+ /HPF (NEGATIVE) 09/07/18 22:06 Urine Bacteria 4+ /HPF (NEGATIVE) 09/07/18 22:06 Hyaline Casts Few /LPF (NEGATIVE) 09/07/18 17:45 Granular Casts Moderate /LPF (NEGATIVE) 09/07/18 17:45 Ur Culture Indicated? No/not indicated 09/07/18 22:06 Stool Description 5g,mucoid,brown/yell 09/09/18 13:44 Stl Occult Blood (IFOB) Negative (NEGATIVE) 09/09/18 13:44 Stool for White Cells Positive (NEGATIVE) A 09/09/18 13:44 Stl C. diff Tox B Gene Negative (NEGATIVE) 09/09/18 13:44 Stl C. diff [id number] Negative (NEGATIVE) 09/09/18 13:44 Cryptosporid parvum Ag Negative (NEGATIVE) 09/09/18 13:44 Giardia lamblia Ag Negative (NEGATIVE) 09/09/18 13:44 - Plan (1) Weakness Status: Acute Plan: GENTLE IV HYDRATION. IV ABTX FOR UTI. VERIFY HOME MEDICATION. PAIN CONTROL, BLOOD SUGAR MONITORING, SSI. BP MONITORING, CASE MANAGEMENT AND PT CONSULT (2) UTI (urinary tract infection) Status: Acute (3) Diabetes Status: Acute (4) Hypertension Status: Acute (5) Fall Status: Acute (6) Lower back injury Status: Acute (7) Edema of left lower extremity Status: Acute Plan: VENOUS DOPPLER. (8) Degenerative lumbar spinal stenosis Status: Acute Plan: PAIN CONTROL, PHYSICAL THERAPY
[2018-09-11] MEDS: ZOCOR TAB 40 MG PO SCH (20:26)
[2018-09-11] MEDS: SEROquel TAB 100 MG PO SCH (20:28)
[2018-09-11] MEDS: SNACK - Diabetic Appropriate PO SCH ×2 (20:30→20:31)
[2018-09-12] MEDS: NS 1000 ML 1,000 ML IV SCH ×3 (03:35→21:21)
[2018-09-12] MEDS: NEURONTIN CAP 300 MG PO SCH ×3 (06:09→21:04)
[2018-09-12] MEDS: HumaLOG SC SCH ×3 (06:09→17:22)
[2018-09-12] MEDS: KENALOG CREAM TOP SCH ×3 (06:10→21:10)
[2018-09-12 07:03] LABS: BASOPHILS # (AUTO) 0.1 X10^3/uL (0.0-0.1); EOSINOPHILS # (AUTO) 0.4 x10^3/uL (0.0-0.2); EOSINOPHILS % (AUTO) 5.2 % (0.9-2.9); HEMATOCRIT 33.6 % (36.0-47.0); HEMOGLOBIN 11.3 g/dL (12.0-16.0); LYMPHOCYTES # (AUTO) 1.9 X10^3/uL (1.3-2.9); LYMPHOCYTES % (AUTO) 27.3 % (21.0-51.0); MEAN CORPUSCULAR HEMOGLOBIN 31.6 pg (27.0-34.0); MEAN CORPUSCULAR HGB CONC 33.7 g/dL (33.0-35.0); MEAN CORPUSCULAR VOLUME 93.8 fL (80.0-100.0); MEAN PLATELET VOLUME 9.1 fL (7.4-11.0); MONOCYTES # (AUTO) 0.6 x10^3/uL (0.3-0.8); MONOCYTES % (AUTO) 9.1 % (0.0-13.0); NEUTROPHILS % (AUTO) 57.4 % (42.0-75.0); PLATELET COUNT 179 X10^3/uL (150.0-450.0); RED BLOOD COUNT 3.58 X10^6/uL (3.5-5.4); RED CELL DISTRIBUTION WIDTH 12.5 % (11.6-16.5)
[2018-09-12 07:10] LABS: ALANINE AMINOTRANSFERASE 19 Units/L (12-78); ALBUMIN 2.5 g/dL (3.4-5.0); ALKALINE PHOSPHATASE 72 Units/L (46-116); ASPARTATE AMINO TRANSFERASE 13 Units/L (15-37); BLOOD UREA NITROGEN 13 mg/dL (7-18); CALCIUM 8.5 mg/dL (8.5-10.1); CARBON DIOXIDE 27.5 mmol/L (21-32); CHLORIDE 104 mmol/L (98-107); COR CA(FOR HYPOALB) 9.7 mg/dL (8.5-10.1); COR NA(FOR HYPERGLY) 141 mmol/L (136-145); CREATININE 0.91 mg/dL (0.55-1.02); MAGNESIUM 1.9 mg/dL (1.7-2.9); SODIUM 140 mmol/L (136-145); TOTAL PROTEIN 6.1 g/dL (6.4-8.2); eGFR NON BLACK RACES > 60 (>60)
[2018-09-12] MEDS ORDERED: ZOLOFT PO ONE (08:21)
[2018-09-12] MEDS: ZOLOFT PO SCH (08:59)
[2018-09-12] MEDS: LASIX PO SCH (08:59)
[2018-09-12] MEDS: ZYLOPRIM PO SCH (09:00)
[2018-09-12] MEDS: VITAMIN B-12 PO SCH (09:00)
[2018-09-12] MEDS: ZANTAC PO SCH ×2 (09:00→21:06)
[2018-09-12] MEDS: COREG TAB 12.5 MG PO SCH ×2 (09:00→21:07)
[2018-09-12] MEDS: PATIENT'S HOME MEDICATION PO SCH ×2 (09:01→21:11)
[2018-09-12] MEDS: ROCEPHIN VIAL 1 GRAM IVP SCH (09:01)
[2018-09-12] MEDS: K-DUR TAB 20 MEQ PO PRN (10:17)
[2018-09-12] MEDS: MAGNESIUM SULFATE 1 GRAM/100 mL PREMIX 1 GM/100 ML BAG IV PRN (10:18)
--- NOTE | 2018-09-12 18:03 | PCM.PROG ---
Progress Note - Progress Note for Day of Date of Exam: 09/12/18 - Subjective Subjective: -63 WF ER ADMISSION ON 09/07 FOLLOWING DIFFUSE WEAKNESS AND FALL WITH NEW BACK INJURY. PT IS DM WITH HTN AND MORBID OBESITY. PT HAS UTI ON ADMISSION, CURRENLTY ON IV ROCEPHIN WITH CULTURE POSITIVE FOR +ECOLI. PT HAS LE EDEMA, WORSE TO LLE AND REDNESS TO LEFT GAXIOLA AREA AND INCREASED WARMTH, IMPROVING WITH TRIAMCINOLONE CREAM. VENOUS DOPPLER NEGATIVE FOR DVT. PT CO PAIN TO LLE SINCE FALL. 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 CONSULTED CASE MANAGEMENT FOR REHAB THERAPY - Past Medical Family Social History Past Med/Fam/Surg Hx: No changes since H&P Allergies: Allergies clopidogrel [From Plavix] Allergy (Verified 09/07/18 14:47) levofloxacin [From Levaquin] Allergy (Verified 09/07/18 14:47) nitrofurantoin [From Macrodantin] Allergy (Verified 09/07/18 14:47) Penicillins Allergy (Verified 09/07/18 14:47) - Review of Systems ROS: No change since H&P - Vital Signs and I&O's Vital Signs: Temperature 98.6 F Pulse Rate [Left Brachial] 70 Pulse Rate [Right Brachial] 79 Pulse Rate 84 Respiratory Rate 20 Blood Pressure [Left Arm] 174/81 Blood Pressure [Right Arm] 137/70 Blood Pressure 143/74 O2 Sat by Pulse Oximetry 95 Intake and Output: Intake & Output 09/10/18 09/11/18 09/12/18 09/13/18 11:59 11:59 11:59 11:59 Intake Total 3260 / 3260 3224 / 3224 2080 / 2080 480 / 480 Output Total 1825 / 1825 3000 / 3000 3475 / 3475 Balance 1435 / 1435 224 / 224 -1395 / -1395 480 / 480 - Physical Exam Oriented: Normal Eyes: Normal Ear: Normal Nose: Normal Throat: Normal Respiratory: Diminished Cardiovascular: Normal, Edema : Normal Auscultation: Bowel Sounds: Normal Tenderness: Normal Skin: Red, Tender, Hot (LLE) Musculoskeletal: Left, Leg, Back:Thoracic, Back:Lumbar, Swelling, Tender Psychiatric: Anxiety Speech Pattern: Clear, Appropriate - Laboratory and Diagnostics Result Diagrams: 09/12/18 06:28 09/12/18 06:28 Labs: 09/09/18 13:44 Stool Stool Culture - Final 09/09/18 13:44 Stool - Final 09/07/18 17:45 Urine,Catheterized Urine Culture - Final Escherichia Coli Laboratory WBC 7.0 X10^3/uL (3.6-10.0) 09/12/18 06:28 RBC 3.58 X10^6/uL (3.5-5.4) 09/12/18 06:28 Hgb 11.3 g/dL (12.0-16.0) L 09/12/18 06:28 Hct 33.6 % (36.0-47.0) L 09/12/18 06:28 MCV 93.8 fL (80.0-100.0) 09/12/18 06:28 MCH 31.6 pg (27.0-34.0) 09/12/18 06:28 MCHC 33.7 g/dL (33.0-35.0) 09/12/18 06:28 RDW 12.5 % (11.6-16.5) 09/12/18 06:28 Plt Count 179 X10^3/uL (150.0-450.0) 09/12/18 06:28 Plt Count Comment Adequate (ADEQUATE) 09/07/18 15:53 MPV 9.1 fL (7.4-11.0) 09/12/18 06:28 Neut % (Auto) 57.4 % (42.0-75.0) 09/12/18 06:28 Lymph % (Auto) 27.3 % (21.0-51.0) 09/12/18 06:28 [place] % (Auto) 9.1 % (0.0-13.0) 09/12/18 06:28 Eos % (Auto) 5.2 % (0.9-2.9) H 09/12/18 06:28 Baso % (Auto) 1.0 % (0.2-1.0) 09/12/18 06:28 Neut # (Auto) 4.0 x10^3/uL (2.2-4.8) 09/12/18 06:28 Lymph # (Auto) 1.9 X10^3/uL (1.3-2.9) 09/12/18 06:28 [place] # (Auto) 0.6 x10^3/uL (0.3-0.8) 09/12/18 06:28 Eos # (Auto) 0.4 x10^3/uL (0.0-0.2) H 09/12/18 06:28 Baso # (Auto) 0.1 X10^3/uL (0.0-0.1) 09/12/18 06:28 Absolute Nucleated RBC 0.0 /100WBC 09/12/18 06:28 Plt Morphology Comment Normal (NORMAL) 09/07/18 15:53 RBC Morphology Normal (NORMAL) 09/07/18 15:53 Sodium 140 mmol/L (136-145) 09/12/18 06:28 Corrected Sodium 141 mmol/L (136-145) 09/12/18 06:28 Potassium 3.5 mmol/L (3.5-5.1) 09/12/18 06:28 Chloride 104 mmol/L (98-107) 09/12/18 06:28 Carbon Dioxide 27.5 mmol/L (21-32) 09/12/18 06:28 BUN 13 mg/dL (7-18) 09/12/18 06:28 Creatinine 0.91 mg/dL (0.55-1.02) 09/12/18 06:28 Est GFR (MDRD) Af Amer > 60 (>60) 09/12/18 06:28 Est GFR (MDRD) Non-Af > 60 (>60) 09/12/18 06:28 Glucose 131 mg/dL (65-99) H 09/12/18 06:28 POC Glucose (mg/dL) 169 mg/dL (65-99) H 09/12/18 16:29 Calcium 8.5 mg/dL (8.5-10.1) 09/12/18 06:28 Corrected Calcium 9.7 mg/dL (8.5-10.1) 09/12/18 06:28 Magnesium 1.9 mg/dL (1.7-2.9) 09/12/18 06:28 Total Bilirubin 0.30 mg/dL (0.2-1.0) 09/12/18 06:28 AST 13 Units/L (15-37) L 09/12/18 06:28 ALT 19 Units/L (12-78) 09/12/18 06:28 Alkaline Phosphatase 72 Units/L (46-116) 09/12/18 06:28 Creatine Kinase 294 Units/L (26-192) H 09/08/18 04:58 CK-MB (CK-2) 1.4 ng/mL (0-4.0) 09/08/18 04:58 CK/CKMB % Calc 0.5 % (<4) 09/08/18 04:58 Troponin I < 0.02 ng/mL (0-1.5) 09/08/18 04:58 Total Protein 6.1 g/dL (6.4-8.2) L 09/12/18 06:28 Albumin 2.5 g/dL (3.4-5.0) L 09/12/18 06:28 Globulin 3.6 g/dL (2.5-4.5) 09/12/18 06:28 Albumin/Globulin Ratio 0.7 Ratio (1.1-2.1) L 09/12/18 06:28 Specimen Type Catherized urine 09/07/18 22:06 Urine Color Yellow (YELLOW) 09/07/18 22:06 Urine Appearance Cloudy (CLEAR) 09/07/18 22:06 Urine pH 5.0 (5.0 - 8.0) 09/07/18 22:06 Ur Specific [place] 1.020 (1.000-1.030) 09/07/18 22:06 Urine Protein 3+ (NEGATIVE) 09/07/18 22:06 Urine Glucose (UA) Negative (NEGATIVE) 09/07/18 22:06 Urine Ketones 3+ (NEGATIVE) 09/07/18 22:06 Urine Occult Blood 3+ (NEGATIVE) 09/07/18 22:06 Urine Nitrite Positive (NEGATIVE) 09/07/18 22:06 Urine Bilirubin Negative (NEGATIVE) 09/07/18 22:06 Urine Urobilinogen Normal (NORMAL) 09/07/18 22:06 Ur Leukocyte Esterase 1+ (NEGATIVE) 09/07/18 22:06 Urine RBC 3-5 /HPF (NONE SEEN) 09/07/18 22:06 Urine WBC 3-5 /HPF (NONE SEEN) 09/07/18 22:06 Ur Squamous Epith Cells Few /HPF (NEGATIVE) 09/07/18 22:06 Amorphous Sediment 1+ /HPF (NEGATIVE) 09/07/18 22:06 Urine Bacteria 4+ /HPF (NEGATIVE) 09/07/18 22:06 Hyaline Casts Few /LPF (NEGATIVE) 09/07/18 17:45 Granular Casts Moderate /LPF (NEGATIVE) 09/07/18 17:45 Ur Culture Indicated? No/not indicated 09/07/18 22:06 Stool Description 5g,mucoid,brown/yell 09/09/18 13:44 Stl Occult Blood (IFOB) Negative (NEGATIVE) 09/09/18 13:44 Stool for White Cells Positive (NEGATIVE) A 09/09/18 13:44 Stl C. diff Tox B Gene Negative (NEGATIVE) 09/09/18 13:44 Stl C. diff [id number] Negative (NEGATIVE) 09/09/18 13:44 Cryptosporid parvum Ag Negative (NEGATIVE) 09/09/18 13:44 Giardia lamblia Ag Negative (NEGATIVE) 09/09/18 13:44 - Plan (1) Weakness Status: Acute Plan: GENTLE IV HYDRATION. IV ABTX FOR UTI. VERIFY HOME MEDICATION. PAIN CONT ROL, BLOOD SUGAR MONITORING, SSI. BP MONITORING, CASE MANAGEMENT AND PT CONSULT (2) UTI (urinary tract infection) Status: Acute (3) Diabetes Status: Acute (4) Hypertension Status: Acute (5) Fall Status: Acute (6) Lower back injury Status: Acute (7) Edema of left lower extremity Status: Acute Plan: VENOUS DOPPLER. (8) Degenerative lumbar spinal stenosis Status: Acute Plan: PAIN CONTROL, PHYSICAL THERAPY (9) Atopic dermatitis Status: Acute Plan: LLE, USE TRIAMCINOLONE CREASE BID
[2018-09-12] MEDS: SNACK - Diabetic Appropriate PO SCH ×2 (20:00→22:48)
[2018-09-12] MEDS: ZOCOR TAB 40 MG PO SCH (21:04)
[2018-09-12] MEDS: ULTRAM PO PRN (21:05)
[2018-09-12] MEDS: SEROquel TAB 100 MG PO SCH (21:11)
[2018-09-12] MEDS: HumuLIN R SUBCUT PRN (21:21)
[2018-09-13 05:26] LABS: BASOPHILS # (AUTO) 0.1 X10^3/uL (0.0-0.1); BASOPHILS % (AUTO) 0.9 % (0.2-1.0); EOSINOPHILS # (AUTO) 0.4 x10^3/uL (0.0-0.2); EOSINOPHILS % (AUTO) 5.5 % (0.9-2.9); HEMOGLOBIN 10.9 g/dL (12.0-16.0); LYMPHOCYTES # (AUTO) 1.9 X10^3/uL (1.3-2.9); LYMPHOCYTES % (AUTO) 28.4 % (21.0-51.0); MEAN CORPUSCULAR HGB CONC 33.1 g/dL (33.0-35.0); MEAN CORPUSCULAR VOLUME 93.5 fL (80.0-100.0); MEAN PLATELET VOLUME 8.9 fL (7.4-11.0); MONOCYTES # (AUTO) 0.7 x10^3/uL (0.3-0.8); MONOCYTES % (AUTO) 10.3 % (0.0-13.0); NEUTROPHILS # (AUTO) 3.7 x10^3/uL (2.2-4.8); NEUTROPHILS % (AUTO) 54.9 % (42.0-75.0); PLATELET COUNT 197 X10^3/uL (150.0-450.0); RED BLOOD COUNT 3.53 X10^6/uL (3.5-5.4); RED CELL DISTRIBUTION WIDTH 12.7 % (11.6-16.5); WHITE BLOOD COUNT 6.8 X10^3/uL (3.6-10.0)
[2018-09-13] MEDS: NS 1000 ML 1,000 ML IV SCH (05:46)
[2018-09-13 05:47] LABS: ALANINE AMINOTRANSFERASE 20 Units/L (12-78); ALBUMIN 2.5 g/dL (3.4-5.0); ALKALINE PHOSPHATASE 71 Units/L (46-116); ASPARTATE AMINO TRANSFERASE 14 Units/L (15-37); BLOOD UREA NITROGEN 16 mg/dL (7-18); CALCIUM 8.5 mg/dL (8.5-10.1); CARBON DIOXIDE 27.2 mmol/L (21-32); CHLORIDE 103 mmol/L (98-107); COR CA(FOR HYPOALB) 9.7 mg/dL (8.5-10.1); COR NA(FOR HYPERGLY) 141 mmol/L (136-145); CREATININE 0.99 mg/dL (0.55-1.02); SODIUM 140 mmol/L (136-145); TOTAL PROTEIN 6.1 g/dL (6.4-8.2); eGFR NON BLACK RACES > 60 (>60)
[2018-09-13] MEDS: NEURONTIN CAP 300 MG PO SCH (05:47)
[2018-09-13] MEDS: KENALOG CREAM TOP SCH (05:47)
[2018-09-13] MEDS: HumaLOG SC SCH (05:59)
[2018-09-13] MEDS: K-DUR TAB 20 MEQ PO PRN ×2 (06:38→08:56)
[2018-09-13] MEDS ORDERED: ZOLOFT PO ONE (08:29)
[2018-09-13] MEDS: COREG TAB 12.5 MG PO SCH (08:46)
[2018-09-13] MEDS: ZYLOPRIM PO SCH (08:47)
[2018-09-13] MEDS: ZOLOFT PO SCH (08:47)
[2018-09-13] MEDS: LASIX PO SCH (08:48)
[2018-09-13] MEDS: ROCEPHIN VIAL 1 GRAM IVP SCH (08:49)
[2018-09-13] MEDS: VITAMIN B-12 PO SCH (08:49)
[2018-09-13] MEDS: ZANTAC PO SCH (08:49)
[2018-09-13] MEDS: PATIENT'S HOME MEDICATION PO SCH (08:56)
[2018-09-13 09:36] VITALS: BP 154/70
== END 2018-09-13 12:20 | disposition home health service (06) | DRG 690 ==
LOC: ER 14:38 → MED/SURG 14:38
PROVIDERS: ADMIT Internal Medicine; ATTEND Internal Medicine
DX: Z91.81 History of falling; J44.9 Chronic obstructive pulmonary disease, unspecified; E66.01 Morbid (severe) obesity due to excess calories; B96.29 Other Escherichia coli [E. coli] as the cause of diseases classified elsewhere; M54.89 Other dorsalgia; L20.89 Other atopic dermatitis; N39.0 Urinary tract infection, site not specified; R60.0 Localized edema; E11.65 Type 2 diabetes mellitus with hyperglycemia; R53.1 Weakness; R26.89 Other abnormalities of gait and mobility; K44.9 Diaphragmatic hernia without obstruction or gangrene; I10 Essential (primary) hypertension; M48.061 Spinal stenosis, lumbar region without neurogenic claudication
CPT/HCPCS: 36415; 51701; 71010; 71045; 72131; 72148; 80053; 81001; 82270; 82550; 82553; 83630; 83735; 84132; 84484; 85025; 87045; 87086; 87088; 87186; 87328; 87329; 87427; 87449; 87493; 87899; 93005; 93971; 94760; 96365; 97110; 97116; 97163; 97167; 97535; 99282; 99284; A4222; G0378; J0696; J1815; J1817; J2405; J3475; J7030

== ENCOUNTER 2019-02-03 15:08 | Inpatient (IN) ==
[2019-02-03 15:20] VITALS: BMI 44.9
--- NOTE | 2019-02-03 15:56 | DR.EXTPAIN ---
HPI Time seen Time Seen by Provider: 02/03/19 15:55 PCP Primary Care Physician: NED LIM HPI Comment HPI Comment: FOUND ON THE FLOOR WEAK AND ALMOST UNRESPONSIVE. EVALUATED AT [facility] IN [place] AND DISCHARGE HOME. CONTINUE TO FEEL WEAK. HERE FOR EVALUATION. Complaint/Symptoms Chief Complaint Doctor Comments: INCREASING GENERALIZE WEAKNESS TIMES ONE DAY. Chief Complaint:: PTS DAUGHTER STATES SHE FOUND PT YESTERDAY AFTERNOON ALMOST UNRESPONSIVE. PT CAME TO AND WAS C/O RIGHT SIDED WEAKNESS AND IS LOOSING CONTROL OF B&B. AMBULANCE WAS CALLED AND PT WAS TAKEN TO [facility] AND WAS DIAGNOSED WITH DEHYDRATION. 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, Ortho Surgery and Other Family History History of Family Medical Conditions: Yes Family Medical History: Diabetes Mellitus, Cancer, [place], Coronary Artery Disease, Sudden Cardiac and Hypertension Social History Does patient currently use any type of tobacco product: No Have you used tobacco products in the last 12 months: No Type of Tobacco Use: None Does any household member use tobacco: No Alcohol Use: None Do you use any recreational Drugs:: No Lives With: Alone infectious screening In the last 2 months have you had wt loss of >10#?: NO Have you had fever, night sweats or hemotysis?: No Have you traveled outside the country in the last 6 months?: No Isolation: Standard ROS Review of Systems Constitutional: See HPI, Weakness and Fatigue; negative Chills and Fever Eyes: No Symptoms Reported and See HPI; negative Eye Pain, Blurred Vision and Discharge ENTM: No Symptoms Reported and See HPI; negative Ear Pain, Nose Discharge, Nose Congestion and Throat Pain Respiratoy: See HPI; negative Non-Productive Cough, Short of Breath and Wheezing Cardiovascular: No Symptoms Reported and See HPI; negative Chest Pain, Edema and Palpitations Gastrointestinal/Abdominal: No Symptoms Reported and See HPI; negative Abdominal Pain, Constipation, Diarrhea, Nausea and Vomiting Genitourinary: No Symptoms Reported and See HPI; negative Dysuria, Frequency and Hematuria Neurological: See HPI, Pre-existing Deficit and Weakness; negative Headache and Dizziness Musculoskeletal: See HPI and Muscle Pain; negative Back Pain and Neck Pain Integumentary: No Symptoms Reported and See HPI; negative Change in Color, Rash and Bruises Hematologic/Lymphatic: No Symptoms Reported and See HPI; negative Easy Bleeding, Easy Bruising, Swollen Glands and Lymphadenopathy Endocrine: No Symptoms Reported and See HPI; negative Increased Thirst, Increased Urine and Decreased Appetite Psychiatric: No Symptoms Reported and See HPI All Other Systems: Reviewed and Negative PE Vital Signs Vitals: Temperature 97.9 F Pulse Rate [Left Brachial] 73 Pulse Rate [Right Brachial] 85 Pulse Rate 69 Respiratory Rate 18 Blood Pressure [Left Arm] 187/88 Blood Pressure [Right Arm] 137/70 Blood Pressure 139/70 O2 Sat by Pulse Oximetry 97 General Limitations: No Limitations General Appearance: Alert and In No Apparent Distress Head Head Exam: Normal Inspection, Atraumatic and Normocephalic Eyes Eye exam: Normal Appearance, PERRL and EOMI; negative Scleral Icterus and Conjunctival Injection ENT ENT Exam: Normal Oropharynx, Normal External Ear Exam and TM's Normal Bilaterally Neck Neck Exam: Normal Inspection and Trachea Midline; negative Tenderness and Lymphadenopathy Chest Chest Inspection: Normal Inspection and Symmetric Chest Wall Rise; negative Tenderness Respiratory Respiratory Exam: Normal Lung Sounds Bilat; negative Accessory Muscle Use, Chest Wall Tenderness and Respiratory Distress Respiratory Exam: Bilateral: Rhonchi and Lower: Rhonchi Cardiovascular Cardiovascular Exam: Regular Rate, Normal Rhythm and Normal Heart Sounds; negative Systolic Murmur and Diastolic Murmur Abdominal Exam Abdominal Exam: Normal Inspection, Normal Bowel Sounds and Soft; negative Tenderness Extremities Extremities Exam: Normal Inspection and Normal Capillary Refill; negative Tenderness, Edema and Calf Tenderness Back Back Exam: Normal Inspection; negative Tenderness, Paraspinal Tenderness and Vertebral Tenderness Neurological Neurological Exam: Alert, Oriented X3 and Motor Sensory Deficit Psychiatric Psychiatric Exam: Normal Affect and Normal Mood Skin Skin Exam: Warm, Dry, Intact and Normal Color MDM Differential Diagnosis Differential Diagnosis: Other (DEHYDRATION, [place], PNEUMONIA, CVA, WEAKNESS.) COURSE Treatment Treatment: SEE ORDES. Education/Counseling Education/Counseling: Patient Educated On: Diagnosis ROR Labs Reviewed Laboratory Results Reviewed?: Yes Result Diagrams: 02/11/19 04:56 02/11/19 04:56 Laboratory: 02/03/19 17:28 Blood Blood Culture - Final 02/03/19 21:14 Urine,Catheterized Urine Culture - Final Escherichia Coli WBC 4.5 X10^3/uL (3.6-10.0) 02/11/19 04:56 RBC 3.71 X10^6/uL (3.5-5.4) 02/11/19 04:56 Hgb 11.5 g/dL (12.0-16.0) L 02/11/19 04:56 Hct 34.1 % (36.0-47.0) L 02/11/19 04:56 MCV 92.0 fL (80.0-100.0) 02/11/19 04:56 MCH 31.1 pg (27.0-34.0) 02/11/19 04:56 MCHC 33.8 g/dL (33.0-35.0) 02/11/19 04:56 RDW 13.4 % (11.6-16.5) 02/11/19 04:56 Plt Count 170 X10^3/uL (150.0-450.0) 02/11/19 04:56 MPV 9.0 fL (7.4-11.0) 02/11/19 04:56 Neut % (Auto) 36.4 % (42.0-75.0) L 02/11/19 04:56 Lymph % (Auto) 41.6 % (21.0-51.0) 02/11/19 04:56 [place] % (Auto) 12.5 % (0.0-13.0) 02/11/19 04:56 Eos % (Auto) 8.4 % (0.9-2.9) H 02/11/19 04:56 Baso % (Auto) 1.1 % (0.2-1.0) H 02/11/19 04:56 Neut # (Auto) 1.6 x10^3/uL (2.2-4.8) L 02/11/19 04:56 Lymph # (Auto) 1.9 X10^3/uL (1.3-2.9) 02/11/19 04:56 [place] # (Auto) 0.6 x10^3/uL (0.3-0.8) 02/11/19 04:56 Eos # (Auto) 0.4 x10^3/uL (0.0-0.2) H 02/11/19 04:56 Baso # (Auto) 0.1 X10^3/uL (0.0-0.1) 02/11/19 04:56 Absolute Nucleated RBC 0.1 /100WBC 02/11/19 04:56 Sodium 143 mmol/L (136-145) 02/11/19 04:56 Corrected Sodium 144 mmol/L (136-145) 02/11/19 04:56 Potassium 3.5 mmol/L (3.5-5.1) 02/11/19 04:56 Chloride 108 mmol/L (98-107) H 02/11/19 04:56 Carbon Dioxide 27.0 mmol/L (21-32) 02/11/19 04:56 BUN 3 mg/dL (7-18) L 02/11/19 04:56 Creatinine 0.92 mg/dL (0.55-1.02) 02/11/19 04:56 Est GFR (MDRD) Af Amer > 60 (>60) 02/11/19 04:56 Est GFR (MDRD) Non-Af > 60 (>60) 02/11/19 04:56 Glucose 131 mg/dL (65-99) H 02/11/19 04:56 POC Glucose (mg/dL) 119 mg/dL (65-99) H 02/11/19 05:37 Lactic Acid 1.5 mmol/L (0.4-2.0) 02/03/19 17:28 Calcium 9.3 mg/dL (8.5-10.1) 02/11/19 04:56 Corrected Calcium 10.7 mg/dL (8.5-10.1) H 02/11/19 04:56 Magnesium 2.0 mg/dL (1.7-2.9) 02/10/19 05:15 Total Bilirubin 0.10 mg/dL (0.2-1.0) L 02/11/19 04:56 AST 16 Units/L (15-37) 02/11/19 04:56 ALT 16 Units/L (12-78) 02/11/19 04:56 Alkaline Phosphatase 66 Units/L (46-116) 02/11/19 04:56 Creatine Kinase 118 Units/L (26-192) 02/07/19 05:06 CK-MB (CK-2) < 1.0 ng/mL (0-4.0) 02/07/19 05:06 CK/CKMB % Calc 0.9 % (<4) 02/07/19 05:06 Troponin I < 0.02 ng/mL (0-1.5) 02/07/19 05:06 C-Reactive Protein 106.00 mg/L (0-3.0) H 02/03/19 17:28 Total Protein 5.6 g/dL (6.4-8.2) L 02/11/19 04:56 Albumin 2.3 g/dL (3.4-5.0) L 02/11/19 04:56 Globulin 3.3 g/dL (2.5-4.5) 02/11/19 04:56 Albumin/Globulin Ratio 0.7 Ratio (1.1-2.1) L 02/11/19 04:56 Specimen Type Catherized urine 02/03/19 21:14 Urine Color Dark yellow (YELLOW) 02/03/19 21:14 Urine Appearance Cloudy (CLEAR) 02/03/19 21:14 Urine pH 6.0 (5.0 - 8.0) 02/03/19 21:14 Ur Specific [place] 1.025 (1.000-1.030) 02/03/19 21:14 Urine Protein 4+ (NEGATIVE) 02/03/19 21:14 Urine Glucose (UA) Negative (NEGATIVE) 02/03/19 21:14 Urine Ketones 3+ (NEGATIVE) 02/03/19 21:14 Urine Occult Blood 4+ (NEGATIVE) 02/03/19 21:14 Urine Nitrite Negative (NEGATIVE) 02/03/19 21:14 Urine Bilirubin Negative (NEGATIVE) 02/03/19 21:14 Urine Urobilinogen Normal (NORMAL) 02/03/19 21:14 Ur Leukocyte Esterase 1+ (NEGATIVE) 02/03/19 21:14 Urine RBC 0-2 /HPF (NONE SEEN) 02/03/19 21:14 Urine WBC 20-30 /HPF (NONE SEEN) 02/03/19 21:14 Ur Squamous Epith Cells Rare /HPF (NEGATIVE) 02/03/19 21:14 Urine Bacteria 4+ /HPF (NEGATIVE) 02/03/19 21:14 Ur Culture Indicated? Yes/culture set up 02/03/19 21:14 XRAY XRAY Interpreted by: Radiologist XRAY Findings: REPORT NOTED. Opioid Opioid Risk Tool Age ([place] box if 16-45): No Total: 0 Total Score Risk Category: Low Risk Copyright: Kyle CERON predicting aberrant behaviors Diagnosis Discharge Problem: Abnormal cardiac enzyme level Rhabdomyolysis Qualifiers: Rhabdomyolysis type: non-traumatic Qualified Code(s): M62.82 - Rhabdomyolysis Instructions Forms: Patient Portal
[2019-02-03 17:44] LABS: BASOPHILS # (AUTO) 0.1 X10^3/uL (0.0-0.1); BASOPHILS % (AUTO) 0.8 % (0.2-1.0); EOSINOPHILS # (AUTO) 0.3 x10^3/uL (0.0-0.2); EOSINOPHILS % (AUTO) 3.4 % (0.9-2.9); HEMATOCRIT 41.3 % (36.0-47.0); HEMOGLOBIN 14.1 g/dL (12.0-16.0); LYMPHOCYTES # (AUTO) 1.6 X10^3/uL (1.3-2.9); LYMPHOCYTES % (AUTO) 16.6 % (21.0-51.0); MEAN CORPUSCULAR HEMOGLOBIN 31.2 pg (27.0-34.0); MEAN CORPUSCULAR HGB CONC 34.2 g/dL (33.0-35.0); MEAN CORPUSCULAR VOLUME 91.3 fL (80.0-100.0); MEAN PLATELET VOLUME 8.6 fL (7.4-11.0); MONOCYTES % (AUTO) 10.4 % (0.0-13.0); NEUTROPHILS # (AUTO) 6.5 x10^3/uL (2.2-4.8); NEUTROPHILS % (AUTO) 68.8 % (42.0-75.0); PLATELET COUNT 184 X10^3/uL (150.0-450.0); RED BLOOD COUNT 4.53 X10^6/uL (3.5-5.4); WHITE BLOOD COUNT 9.4 X10^3/uL (3.6-10.0)
[2019-02-03 17:59] LABS: LACTIC ACID 1.5 mmol/L (0.4-2.0)
[2019-02-03 18:02] LABS: CALCIUM 9.7 mg/dL (8.5-10.1); CARBON DIOXIDE 25.9 mmol/L (21-32); CREATININE 1.21 mg/dL (0.55-1.02); TROPONIN I 0.09 ng/mL (0-1.5)
--- NOTE | 2019-02-03 18:18 | CT ---
HISTORY: Left-sided weakness Study: CT brain without contrast Comparison: None Technique: Multiple axial images of the brain were obtained from the skull base to the vertex without administration of IV contrast. Findings: No acute intraparenchymal hemorrhage or mass can be identified. No extra-axial fluid collections are seen. No alteration in the attenuation of the brain parenchyma can be identified to suggest acute or subacute ischemic change. Images demonstrate a large remote infarct involving the right frontoparietal region. There is ex vacuo dilatation of the right lateral ventricle. Otherwise the ventricles, sulci, and cisterns demonstrate an appearance consistent with a mild degree of generalized atrophy. If symptoms or clinical concern persist recommend continued follow-up for further evaluation. IMPRESSION: No acute intracranial process can be identified. Mild generalized atrophy with findings consistent with changes of chronic small vessel ischemic disease. Chronic right-sided infarct as noted above. Reported By:
[2019-02-03 18:30] LABS: ALBUMIN 2.9 g/dL (3.4-5.0); COR CA(FOR HYPOALB) 10.6 mg/dL (8.5-10.1); TOTAL PROTEIN 6.9 g/dL (6.4-8.2)
[2019-02-03 18:33] LABS: CKMB % 0.5 % (<4); CREATINE KINASE MB 7.3 ng/mL (0-4.0)
[2019-02-03 21:23] LABS: BILIRUBIN,URINE NEGATIVE (NEGATIVE); BLOOD/HEMOGLOBIN,URINE 4+ (NEGATIVE); GLUCOSE, URINE NEGATIVE (NEGATIVE); KETONES,URINE 3+ (NEGATIVE); LEUKOCYTE ESTERASE ,URINE 1+ (NEGATIVE); NITRITES,URINE NEGATIVE (NEGATIVE); PROTEIN,URINE 4+ (NEGATIVE); UROBILINOGEN,URINE NORMAL (NORMAL)
[2019-02-03 21:36] LABS: APPEARANCE,URINE CLOUDY (CLEAR); COLOR,URINE DARK YELLOW (YELLOW); RBC,URINE 0-2 /HPF (NONE SEEN)
[2019-02-03 21:37] LABS: BACTERIA,URINE 4+ /HPF (NEGATIVE); SQUAMOUS EPITHELIAL CELL,UR RARE /HPF (NEGATIVE)
[2019-02-03] MEDS ORDERED: NS 1000 ML 1,000 ML ONE (21:47)
[2019-02-03] MEDS: NS 1000 ML 1,000 ML IV SCH (21:54)
[2019-02-03 22:06] LABS: TROPONIN I 0.05 ng/mL (0-1.5)
[2019-02-03 22:09] LABS: CKMB % 0.4 % (<4); CREATINE KINASE MB 5.1 ng/mL (0-4.0)
--- NOTE | 2019-02-03 23:25 | RAD ---
Chest, one view Indication: Shortness of breath Comparison: 09/07/2018 Findings: Accounting for patient rotation and AP technique, there is stable mild enlargement of the cardiac silhouette without congestive failure. No focal infiltrate or significant effusion is identified. Large hiatal hernia is again suspected. No pneumothorax is identified. Impression: Stable mild cardiomegaly without acute chest process. Large suspected hiatal hernia. Reported By:
[2019-02-04] MEDS: NORCO 5/325 MG TAB PO PRN ×3 (00:56→21:50)
[2019-02-04] MEDS ORDERED: NORCO 5/325 MG TAB ONE (00:57)
[2019-02-04 06:13] LABS: BASOPHILS # (AUTO) 0.1 X10^3/uL (0.0-0.1); BASOPHILS % (AUTO) 0.7 % (0.2-1.0); EOSINOPHILS # (AUTO) 0.4 x10^3/uL (0.0-0.2); EOSINOPHILS % (AUTO) 4.8 % (0.9-2.9); HEMATOCRIT 37.3 % (36.0-47.0); HEMOGLOBIN 12.7 g/dL (12.0-16.0); LYMPHOCYTES # (AUTO) 2.2 X10^3/uL (1.3-2.9); LYMPHOCYTES % (AUTO) 28.7 % (21.0-51.0); MEAN CORPUSCULAR HEMOGLOBIN 31.1 pg (27.0-34.0); MEAN CORPUSCULAR HGB CONC 34.1 g/dL (33.0-35.0); MEAN CORPUSCULAR VOLUME 91.2 fL (80.0-100.0); MEAN PLATELET VOLUME 8.7 fL (7.4-11.0); MONOCYTES # (AUTO) 0.9 x10^3/uL (0.3-0.8); MONOCYTES % (AUTO) 12.1 % (0.0-13.0); NEUTROPHILS # (AUTO) 4.1 x10^3/uL (2.2-4.8); NEUTROPHILS % (AUTO) 53.7 % (42.0-75.0); PLATELET COUNT 156 X10^3/uL (150.0-450.0); RED BLOOD COUNT 4.09 X10^6/uL (3.5-5.4); RED CELL DISTRIBUTION WIDTH 13.9 % (11.6-16.5); WHITE BLOOD COUNT 7.7 X10^3/uL (3.6-10.0)
[2019-02-04 06:40] LABS: ALANINE AMINOTRANSFERASE 18 Units/L (12-78); ALBUMIN 2.4 g/dL (3.4-5.0); ALKALINE PHOSPHATASE 61 Units/L (46-116); ASPARTATE AMINO TRANSFERASE 34 Units/L (15-37); BLOOD UREA NITROGEN 20 mg/dL (7-18); CARBON DIOXIDE 25.6 mmol/L (21-32); CHLORIDE 104 mmol/L (98-107); CKMB % 0.3 % (<4); COR CA(FOR HYPOALB) 10.3 mg/dL (8.5-10.1); COR NA(FOR HYPERGLY) 142 mmol/L (136-145); CREATINE KINASE 850 Units/L (26-192); CREATINE KINASE MB 2.9 ng/mL (0-4.0); CREATININE 0.87 mg/dL (0.55-1.02); MAGNESIUM 1.7 mg/dL (1.7-2.9); SODIUM 140 mmol/L (136-145); TOTAL PROTEIN 6.1 g/dL (6.4-8.2); TROPONIN I 0.03 ng/mL (0-1.5); eGFR NON BLACK RACES > 60 (>60)
[2019-02-04] MEDS ORDERED: MICRO K EXTEN CAP 10 MEQ PO PRN (06:56)
[2019-02-04] MEDS ORDERED: POTASSIUM CHL 40 MEQ/NS 0.45% 500 ML IV PRN (06:56)
[2019-02-04] MEDS ORDERED: K-RIDER 10 MEQ/NS 100 ML 10 MEQ/100 ML BAG IV PRN (06:56)
[2019-02-04] MEDS ORDERED: KLOR-CON PO PRN (06:56)
[2019-02-04] MEDS ORDERED: POTASSIUM CHL 60 MEQ/NS 0.45% 500 ML IV PRN (06:56)
[2019-02-04] MEDS: POTASSIUM CHLORIDE LIQ 20 MEQ UDC PO PRN (08:58)
[2019-02-04 09:41] LABS: CKMB % 0.3 % (<4); CREATINE KINASE MB 2.6 ng/mL (0-4.0); TROPONIN I 0.03 ng/mL (0-1.5)
[2019-02-04] MEDS ORDERED: PATIENT'S HOME MEDICATION (Biotin [Biotin] 10,000 MCG) PO SCH (10:00)
[2019-02-04] MEDS ORDERED: ALBUTEROL SULFATE IN SCH (10:00)
[2019-02-04] MEDS ORDERED: ASPIRIN 81 MG CHEWTAB PO SCH (10:00)
[2019-02-04] MEDS ORDERED: PROVENTIL NEB TX 0.083% 2.5MG/ 3ML NEB PRN (10:06)
[2019-02-04] MEDS ORDERED: ZOLOFT ONE (11:33)
[2019-02-04] MEDS: ZANTAC PO SCH ×2 (11:43→21:50)
[2019-02-04] MEDS: VITAMIN B-12 PO SCH (11:44)
[2019-02-04] MEDS: ROCEPHIN VIAL 1 GRAM IVP SCH (11:44)
[2019-02-04] MEDS: ZOLOFT PO SCH (11:44)
[2019-02-04] MEDS: ZYLOPRIM PO SCH (11:44)
[2019-02-04] MEDS: NS 1000 ML 1,000 ML IV SCH (11:46)
[2019-02-04] MEDS: ASPIRIN DIPYRIDAMOLE PO SCH ×2 (12:17→21:50)
[2019-02-04] MEDS: MAGNESIUM SULFATE 1 GRAM/100 mL PREMIX 1 GM/100 ML BAG IV PRN ×2 (12:18→14:00)
[2019-02-04] MEDS ORDERED: PHARMACY CONSULT - DOSE _____ XX SCH (13:00)
[2019-02-04] MEDS: HumuLIN R SUBCUT PRN ×3 (13:30→21:00)
[2019-02-04] MEDS: TYLENOL #3 TAB (W/CODEINE) PO PRN (15:16)
--- NOTE | 2019-02-04 20:59 | DR.H&P ---
H&P - History & Physical for Day of: H&P Date: 02/03/19 - Chief Complaint Chief Complaint: WEAKNESS, INCONTINENCE, DECREASED RESPONSIVENESS - History of Present Illness History of Present Illness: IS A 63 YEAR OLD PATIENT OF NED LIM AT THE [facility] IN [place], [place]. SHE PRESENTED TO THE ER WITH COMPLAINTS OF WEAKNESS, INCONTINENCE, AND DECREASED RESPONSIVENESS. ON ARRIVAL TO THE ER, VITALS WERE 98.1-107-20-91%-158/78. LABS WERE OBTAINED. ABNORMAL LAB VALUES INCLUDE THE FOLLOWING: BUN 23, CREATININE 1.21, GLUCOSE 272, CORRECTED CALCIUM 10.6, AST 42, CREATINE KINASE 1595, CK-MB 7.3, CRP 106.00, ALBUMIN 2.9. A URINALYSIS WAS OBTAINED AND REVEALED: WBC 20-30, RBC 0-2, LEUKOCYTES 1+, BACTERIA 4+. URINE AND BLOOD CULTURES PENDING. A CHEST XRAY WAS OBTAINED AND REVEALED: Stable mild cardiomegaly without acute chest process. Large suspected hiatal hernia. A BRAIN CT WAS OBTAINED AND REVEALED: No acute intracranial process can be identified. Mild generalized atrophy with findings consistent with changes of chronic small vessel ischemic disease. Chronic right-sided infarct. EKG REVEALED SINUS RHYTHM WITH HR 95. SHE WAS ADMITTED TO THE HOSPITAL FOR FURTHER EVALUATION AND TREATMENT OF RHABDOMYOLYSIS, DEHYDRATION, AND A URINARY TRACT INFECTION. SHE WAS STARTED ON NORMAL SALINE AT 75M/HR, ROCPEHIN 1GM IV DAILY, AND WE WILL REVIEW HER HOME MEDICATIONS. OTHERWISE, WE WILL FOLLOW UP WITH AM LABS AND CONTINUE TO MONITOR. 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, Ortho Surgery - Family History Family Medical History: Diabetes Mellitus, Cancer, [place], Hypertension - Social History Does patient currently use any type of tobacco product: No Have you used tobacco products in the last 12 months: No Type of Tobacco Use: Cigarettes Does any household member use tobacco: No Alcohol Use: None Drug Use: None - Medications Home Medications: clopidogrel [From Plavix] Allergy (Verified 09/07/18 14:47) levofloxacin [From Levaquin] Allergy (Verified 09/07/18 14:47) nitrofurantoin [From Macrodantin] Allergy (Verified 09/07/18 14:47) Penicillins Allergy (Verified 09/07/18 14:47) CONTINUE taking the following medications aspirin 81 mg PO DAILY 02/03/19 [History] ergocalciferol (vitamin D2) 1.25 mg PO WEEKLY 02/03/19 [History] gabapentin 900 mg PO TID 02/03/19 [History] insulin detemir U-100 [Levemir U-100 Insulin] 40 units SUBCUT BID 02/03/19 [History] ondansetron HCl [Zofran] 8 mg PO QID 02/03/19 [History] tizanidine 4 mg PO DAILY 02/03/19 [History] albuterol sulfate [ProAir HFA] 2 inh INHALATION QID 02/04/19 [History] potassium chloride 20 meq PO BID 02/04/19 [History] - Review of Systems Constitutional: Weakness, Malaise Eyes: No Symptoms Reported ENT: No Symptoms Reported Respiratory: Shortness of Breath Cardiovascular: No Symptoms Reported Gastrointestinal: No Symptoms Reported Genitourinary: Incontinence Musculoskeletal: No Symptoms Reported Skin: No Symptoms Reported Neurological: Weakness - Physical Exam Vital Signs: Temperature 98.4 F Pulse Rate [Left Brachial] 93 Pulse Rate [Right Brachial] 85 Pulse Rate 67 Respiratory Rate 20 Blood Pressure [Left Arm] 139/65 Blood Pressure [Right Arm] 137/70 Blood Pressure 139/70 O2 Sat by Pulse Oximetry 94 Oriented: Person Eyes: Normal Ear: Normal Nose: Normal Throat: Normal Respiratory: Diminished Throughout Cardiovascular: Tachycardia. negative: S3, S4, Murmur : Normal Auscultation: Bowel Sounds: Normal Palpation: Normal Tenderness: Normal Skin: Normal Musculoskeletal: Normal Psychiatric: Normal Mood Description: Calm Affect: Normal Speech Pattern: Clear - Assessment/Plan (1) Rhabdomyolysis Qualifiers: Rhabdomyolysis type: non-traumatic Qualified Code(s): M62.82 - Rhabdomyolysis Status: Acute Plan: NORMAL SALINE AT 75ML/HR, CONTINUE TO MONITOR CARDIAC ENZYMES (2) Weakness Status: Acute (3) UTI (urinary tract infection) Qualifiers: Urinary tract infection type: acute cystitis Hematuria presence: without hematuria Qualified Code(s): N30.00 - Acute cystitis without hematuria Status: Acute Plan: ROCEPHIN 1G IV DAILY, CONTINUE TO MONITOR - Allergies Allergies/Adverse Reactions: Allergies Allergy/AdvReac Type Severity Reaction Status Date / Time clopidogrel [From Plavix] Allergy Verified 09/07/18 14:47 levofloxacin [From Levaquin] Allergy Verified 09/07/18 14:47 nitrofurantoin Allergy Verified 09/07/18 14:47 [From Macrodantin] Penicillins Allergy Verified 09/07/18 14:47
[2019-02-04] MEDS: SNACK - Diabetic Appropriate PO SCH (21:00)
[2019-02-04] MEDS ORDERED: PATIENT'S HOME MEDICATION (Melatonin [Melatonin] 10 MG) PO SCH (21:00)
[2019-02-04] MEDS: SEROquel TAB 100 MG PO SCH (21:55)
[2019-02-05] MEDS: NS 1000 ML 1,000 ML IV SCH ×2 (01:00→15:47)
[2019-02-05 05:43] LABS: BASOPHILS % (AUTO) 0.8 % (0.2-1.0); EOSINOPHILS # (AUTO) 0.4 x10^3/uL (0.0-0.2); EOSINOPHILS % (AUTO) 6.1 % (0.9-2.9); HEMATOCRIT 36.6 % (36.0-47.0); HEMOGLOBIN 12.4 g/dL (12.0-16.0); LYMPHOCYTES % (AUTO) 30.2 % (21.0-51.0); MEAN CORPUSCULAR HEMOGLOBIN 31.3 pg (27.0-34.0); MEAN CORPUSCULAR HGB CONC 33.8 g/dL (33.0-35.0); MEAN CORPUSCULAR VOLUME 92.6 fL (80.0-100.0); MEAN PLATELET VOLUME 9.8 fL (7.4-11.0); MONOCYTES # (AUTO) 0.7 x10^3/uL (0.3-0.8); MONOCYTES % (AUTO) 10.1 % (0.0-13.0); NEUTROPHILS # (AUTO) 3.4 x10^3/uL (2.2-4.8); NEUTROPHILS % (AUTO) 52.8 % (42.0-75.0); PLATELET COUNT 155 X10^3/uL (150.0-450.0); RED BLOOD COUNT 3.95 X10^6/uL (3.5-5.4); RED CELL DISTRIBUTION WIDTH 13.6 % (11.6-16.5); WHITE BLOOD COUNT 6.5 X10^3/uL (3.6-10.0)
[2019-02-05 06:08] LABS: ALANINE AMINOTRANSFERASE 20 Units/L (12-78); ALBUMIN 2.2 g/dL (3.4-5.0); ALKALINE PHOSPHATASE 57 Units/L (46-116); ASPARTATE AMINO TRANSFERASE 20 Units/L (15-37); BLOOD UREA NITROGEN 17 mg/dL (7-18); CALCIUM 8.6 mg/dL (8.5-10.1); CARBON DIOXIDE 28.3 mmol/L (21-32); CHLORIDE 106 mmol/L (98-107); CKMB % 0.4 % (<4); COR NA(FOR HYPERGLY) 143 mmol/L (136-145); CREATINE KINASE 381 Units/L (26-192); CREATINE KINASE MB 1.4 ng/mL (0-4.0); CREATININE 0.83 mg/dL (0.55-1.02); SODIUM 141 mmol/L (136-145); TOTAL PROTEIN 5.8 g/dL (6.4-8.2); TROPONIN I 0.02 ng/mL (0-1.5); eGFR NON BLACK RACES > 60 (>60)
[2019-02-05] MEDS ORDERED: ZOLOFT ONE (08:29)
[2019-02-05] MEDS: MAGNESIUM SULFATE 1 GRAM/100 mL PREMIX 1 GM/100 ML BAG IV PRN ×2 (09:04→11:00)
[2019-02-05] MEDS: VITAMIN B-12 PO SCH (09:05)
[2019-02-05] MEDS: FOLIC ACID TAB 1 MG PO SCH (09:05)
[2019-02-05] MEDS: POTASSIUM CHLORIDE LIQ 20 MEQ UDC PO PRN (09:05)
[2019-02-05] MEDS: LOVAZA PO SCH (09:05)
[2019-02-05] MEDS: ROCEPHIN VIAL 1 GRAM IVP SCH (09:06)
[2019-02-05] MEDS: ZOLOFT PO SCH (09:06)
[2019-02-05] MEDS: ZANTAC PO SCH ×2 (09:06→20:14)
[2019-02-05] MEDS: TAB-A-VITE PO SCH (09:06)
[2019-02-05] MEDS: ZYLOPRIM PO SCH (09:06)
[2019-02-05] MEDS: ASPIRIN DIPYRIDAMOLE PO SCH ×2 (09:27→20:16)
[2019-02-05] MEDS: NORCO 5/325 MG TAB PO PRN ×2 (09:29→20:14)
[2019-02-05] MEDS ORDERED: TORADOL 30 MG VIAL IVP PRN (10:49)
[2019-02-05] MEDS: HumuLIN R SUBCUT PRN ×2 (12:41→22:45)
--- NOTE | 2019-02-05 14:12 | PCM.PROG ---
Progress Note - Progress Note for Day of Date of Exam: 02/04/19 - Subjective Subjective: WAS ADMITTED FOR RHABDOMYOLYSIS, WEAKNESS, AND A URINARY TRACT INFECTION. TODAY, SHE IS ALERT AND ORIENTED, LYING IN BED ON MORNING ROUNDS. SHE CONTINUES WITH COMPLAINTS OF WEAKNESS AND SHORTNESS OF BREATH TODAY. SHE REPORTS CRAMPING TO BILATERAL LOWER EXTREMITES. ON EXAMINATION, HEART IS REGULAR IN RATE AND RHYTHM. BILATERAL LUNGS ARE NOTED WITH DIMINISHED LUNG SOUNDS THROUGHOUT. ABDOMEN IS ROUND, SOFT, AND NON-TENDER WITH NORMAL BOWEL SOUNDS NOTED IN ALL QUADRANTS. BLE ARE NOTED WITH TRACE EDEMA. HER VITALS THIS MORNING ARE 98.3-87-20-96%-120/55. LABS WERE OBTAINED. ABNORMAL LAB VALUES INCLUDE THE FOLLOWING: POTASSIUM 3.4, BUN 20, GLUCOSE 188, CREATINE KINASE DECREASED FROM 1257 TO 850, TOTAL PROTEIN 6.1, ALBUMIN 2.4. URINE AND BLOOD CULTURES ARE PENDING. NO CHANGES NOTED TO EKGs. SHE IS CURRENTLY RECEIVING IV HYDRATION AND ROCEPHIN 1G IV DAILY. WE WILL CONTINUE WITH CURRENT PLAN OF CARE TODAY AND OBTAIN AN ECHO. OTHERWISE, WE PLAN TO FOLLOW UP WITH AM LABS AND CONTINUE TO MONITOR. - Past Medical Family Social History Past Med/Fam/Surg Hx: No changes since H&P Allergies: Allergies clopidogrel [From Plavix] Allergy (Verified 09/07/18 14:47) levofloxacin [From Levaquin] Allergy (Verified 09/07/18 14:47) nitrofurantoin [From Macrodantin] Allergy (Verified 09/07/18 14:47) Penicillins Allergy (Verified 09/07/18 14:47) - Review of Systems ROS: No change since H&P - Vital Signs and I&O's Vital Signs: Temperature 97.9 F Pulse Rate [Left Brachial] 88 Pulse Rate [Right Brachial] 85 Pulse Rate 96 Respiratory Rate 20 Blood Pressure [Left Arm] 118/56 Blood Pressure [Right Arm] 137/70 Blood Pressure 139/70 O2 Sat by Pulse Oximetry 98 Intake and Output: Intake & Output 02/03/19 02/04/19 02/05/19 02/06/19 11:59 11:59 11:59 11:59 Intake Total 390 / 390 1825 / 1825 Output Total 650 / 650 800 / 800 Balance -260 / -260 1025 / 1025 - Physical Exam Oriented: Person Eyes: Normal Ear: Normal Nose: Normal Throat: Normal Cardiovascular: Tachycardia. negative: S3, S4, Murmur : Normal Auscultation: Bowel Sounds: Normal Palpation: Normal Tenderness: Normal Skin: Normal Musculoskeletal: Normal Psychiatric: Normal Mood Description: Calm Affect: Normal Speech Pattern: Clear, Appropriate - Laboratory and Diagnostics Result Diagrams: 02/05/19 04:55 02/05/19 04:55 Labs: 02/03/19 21:14 Urine,Catheterized Urine Culture - Preliminary 02/03/19 17:28 Blood Blood Culture - Preliminary Laboratory WBC 6.5 X10^3/uL (3.6-10.0) 02/05/19 04:55 RBC 3.95 X10^6/uL (3.5-5.4) 02/05/19 04:55 Hgb 12.4 g/dL (12.0-16.0) 02/05/19 04:55 Hct 36.6 % (36.0-47.0) 02/05/19 04:55 MCV 92.6 fL (80.0-100.0) 02/05/19 04:55 MCH 31.3 pg (27.0-34.0) 02/05/19 04:55 MCHC 33.8 g/dL (33.0-35.0) 02/05/19 04:55 RDW 13.6 % (11.6-16.5) 02/05/19 04:55 Plt Count 155 X10^3/uL (150.0-450.0) 02/05/19 04:55 MPV 9.8 fL (7.4-11.0) 02/05/19 04:55 Neut % (Auto) 52.8 % (42.0-75.0) 02/05/19 04:55 Lymph % (Auto) 30.2 % (21.0-51.0) 02/05/19 04:55 [place] % (Auto) 10.1 % (0.0-13.0) 02/05/19 04:55 Eos % (Auto) 6.1 % (0.9-2.9) H 02/05/19 04:55 Baso % (Auto) 0.8 % (0.2-1.0) 02/05/19 04:55 Neut # (Auto) 3.4 x10^3/uL (2.2-4.8) 02/05/19 04:55 Lymph # (Auto) 2.0 X10^3/uL (1.3-2.9) 02/05/19 04:55 [place] # (Auto) 0.7 x10^3/uL (0.3-0.8) 02/05/19 04:55 Eos # (Auto) 0.4 x10^3/uL (0.0-0.2) H 02/05/19 04:55 Baso # (Auto) 0.0 X10^3/uL (0.0-0.1) 02/05/19 04:55 Absolute Nucleated RBC 0.1 /100WBC 02/05/19 04:55 Sodium 141 mmol/L (136-145) 02/05/19 04:55 Corrected Sodium 143 mmol/L (136-145) 02/05/19 04:55 Potassium 3.6 mmol/L (3.5-5.1) 02/05/19 04:55 Chloride 106 mmol/L (98-107) 02/05/19 04:55 Carbon Dioxide 28.3 mmol/L (21-32) 02/05/19 04:55 BUN 17 mg/dL (7-18) 02/05/19 04:55 Creatinine 0.83 mg/dL (0.55-1.02) 02/05/19 04:55 Est GFR (MDRD) Af Amer > 60 (>60) 02/05/19 04:55 Est GFR (MDRD) Non-Af > 60 (>60) 02/05/19 04:55 Glucose 164 mg/dL (65-99) H 02/05/19 04:55 POC Glucose (mg/dL) 259 mg/dL (65-99) H 02/05/19 11:24 Lactic Acid 1.5 mmol/L (0.4-2.0) 02/03/19 17:28 Calcium 8.6 mg/dL (8.5-10.1) 02/05/19 04:55 Corrected Calcium 10.0 mg/dL (8.5-10.1) 02/05/19 04:55 Magnesium 1.9 mg/dL (1.7-2.9) 02/05/19 04:55 Total Bilirubin 0.30 mg/dL (0.2-1.0) 02/05/19 04:55 AST 20 Units/L (15-37) 02/05/19 04:55 ALT 20 Units/L (12-78) 02/05/19 04:55 Alkaline Phosphatase 57 Units/L (46-116) 02/05/19 04:55 Creatine Kinase 381 Units/L (26-192) H 02/05/19 04:55 CK-MB (CK-2) 1.4 ng/mL (0-4.0) 02/05/19 04:55 CK/CKMB % Calc 0.4 % (<4) 02/05/19 04:55 Troponin I 0.02 ng/mL (0-1.5) 02/05/19 04:55 C-Reactive Protein 106.00 mg/L (0-3.0) H 02/03/19 17:28 Total Protein 5.8 g/dL (6.4-8.2) L 02/05/19 04:55 Albumin 2.2 g/dL (3.4-5.0) L 02/05/19 04:55 Globulin 3.6 g/dL (2.5-4.5) 02/05/19 04:55 Albumin/Globulin Ratio 0.6 Ratio (1.1-2.1) L 02/05/19 04:55 Specimen Type Catherized urine 02/03/19 21:14 Urine Color Dark yellow (YELLOW) 02/03/19 21:14 Urine Appearance Cloudy (CLEAR) 02/03/19 21:14 Urine pH 6.0 (5.0 - 8.0) 02/03/19 21:14 Ur Specific [place] 1.025 (1.000-1.030) 02/03/19 21:14 Urine Protein 4+ (NEGATIVE) 02/03/19 21:14 Urine Glucose (UA) Negative (NEGATIVE) 02/03/19 21:14 Urine Ketones 3+ (NEGATIVE) 02/03/19 21:14 Urine Occult Blood 4+ (NEGATIVE) 02/03/19 21:14 Urine Nitrite Negative (NEGATIVE) 02/03/19 21:14 Urine Bilirubin Negative (NEGATIVE) 02/03/19 21:14 Urine Urobilinogen Normal (NORMAL) 02/03/19 21:14 Ur Leukocyte Esterase 1+ (NEGATIVE) 02/03/19 21:14 Urine RBC 0-2 /HPF (NONE SEEN) 02/03/19 21:14 Urine WBC 20-30 /HPF (NONE SEEN) 02/03/19 21:14 Ur Squamous Epith Cells Rare /HPF (NEGATIVE) 02/03/19 21:14 Urine Bacteria 4+ /HPF (NEGATIVE) 02/03/19 21:14 Ur Culture Indicated? Yes/culture set up 02/03/19 21:14 - Plan (1) Rhabdomyolysis Status: Acute Qualifiers: Rhabdomyolysis type: non-traumatic Qualified Code(s): M62.82 - Rh abdomyolysis Plan: NORMAL SALINE AT 75ML/HR, CONTINUE TO MONITOR CARDIAC ENZYMES (2) Weakness Status: Acute (3) UTI (urinary tract infection) Status: Acute Qualifiers: Urinary tract infection type: acute cystitis Hematuria presence: without hematuria Qualified Code(s): N30.00 - Acute cystitis without hematuria Plan: ROCEPHIN 1G IV DAILY, CONTINUE TO MONITOR
--- NOTE | 2019-02-05 14:41 | PCM.PROG ---
Progress Note - Progress Note for Day of Date of Exam: 02/05/19 - Subjective Subjective: WAS ADMITTED FOR RHABDOMYOLYSIS, WEAKNESS, AND A URINARY TRACT INFECTION. HER MEDICAL HISTORY INCLUDES HTN, DIABETES, CVA, AND COPD. TODAY, SHE IS ALERT AND ORIENTED, LYING IN BED ON MORNING ROUNDS. SHE CONTINUES WITH COMPLAINTS OF WEAKNESS TODAY. SHE CONTINUES TO REPORT CRAMPING TO BILATERAL LOWER EXTREMITES. ON EXAMINATION, HEART IS REGULAR IN RATE AND RHYTHM. BILATERAL LUNGS ARE NOTED WITH DIMINISHED LUNG SOUNDS THROUGHOUT. ABDOMEN IS ROUND, SOFT, AND NON-TENDER WITH NORMAL BOWEL SOUNDS NOTED IN ALL QUADRANTS. BLE ARE NOTED WITH TRACE EDEMA. HER VITALS THIS MORNING ARE 97.9-88-16-91%-118/56. LABS WERE OBTAINED. ABNORMAL LAB VALUES INCLUDE THE FOLLOWING: GLUCOSE 164, CREATINE KINASE 381, TOTAL PROTEIN 5.8, ALBUMIN 2.2. URINE AND BLOOD CULTURES ARE PENDING. ECHO REVEALED AN EJECTION FRACTION OF 53%. NO CHANGES NOTED TO EKGs. SHE IS CURRENTLY RECEIVING IV HYDRATION AND ROCEPHIN 1G IV DAILY. WE WILL CONTINUE WITH CURRENT PLAN OF CARE TODAY AND START TORADOL 15MG IV Q6H PRN. OTHERWISE, WE PLAN TO FOLLOW UP WITH AM LABS AND CONTINUE TO MONITOR. - Past Medical Family Social History Past Med/Fam/Surg Hx: No changes since H&P Allergies: Allergies clopidogrel [From Plavix] Allergy (Verified 09/07/18 14:47) levofloxacin [From Levaquin] Allergy (Verified 09/07/18 14:47) nitrofurantoin [From Macrodantin] Allergy (Verified 09/07/18 14:47) Penicillins Allergy (Verified 09/07/18 14:47) - Review of Systems ROS: No change since H&P - Vital Signs and I&O's Vital Signs: Temperature 97.9 F Pulse Rate [Left Brachial] 88 Pulse Rate [Right Brachial] 85 Pulse Rate 96 Respiratory Rate 20 Blood Pressure [Left Arm] 118/56 Blood Pressure [Right Arm] 137/70 Blood Pressure 139/70 O2 Sat by Pulse Oximetry 98 Intake and Output: Intake & Output 02/03/19 02/04/19 02/05/19 02/06/19 11:59 11:59 11:59 11:59 Intake Total 390 / 390 1825 / 1825 Output Total 650 / 650 800 / 800 Balance -260 / -260 1025 / 1025 - Physical Exam Oriented: Normal, Person Eyes: Normal Ear: Normal Nose: Normal Throat: Normal Respiratory: Generalized, Diminished Cardiovascular: Tachycardia. negative: S3, S4, Murmur : Normal Auscultation: Bowel Sounds: Normal Palpation: Normal Tenderness: Normal Skin: Normal Musculoskeletal: Leg, Tender Psychiatric: Normal Mood Description: Calm Affect: Normal Speech Pattern: Clear, Appropriate - Laboratory and Diagnostics Result Diagrams: 02/05/19 04:55 02/05/19 04:55 Labs: 02/03/19 21:14 Urine,Catheterized Urine Culture - Preliminary 02/03/19 17:28 Blood Blood Culture - Preliminary Laboratory WBC 6.5 X10^3/uL (3.6-10.0) 02/05/19 04:55 RBC 3.95 X10^6/uL (3.5-5.4) 02/05/19 04:55 Hgb 12.4 g/dL (12.0-16.0) 02/05/19 04:55 Hct 36.6 % (36.0-47.0) 02/05/19 04:55 MCV 92.6 fL (80.0-100.0) 02/05/19 04:55 MCH 31.3 pg (27.0-34.0) 02/05/19 04:55 MCHC 33.8 g/dL (33.0-35.0) 02/05/19 04:55 RDW 13.6 % (11.6-16.5) 02/05/19 04:55 Plt Count 155 X10^3/uL (150.0-450.0) 02/05/19 04:55 MPV 9.8 fL (7.4-11.0) 02/05/19 04:55 Neut % (Auto) 52.8 % (42.0-75.0) 02/05/19 04:55 Lymph % (Auto) 30.2 % (21.0-51.0) 02/05/19 04:55 [place] % (Auto) 10.1 % (0.0-13.0) 02/05/19 04:55 Eos % (Auto) 6.1 % (0.9-2.9) H 02/05/19 04:55 Baso % (Auto) 0.8 % (0.2-1.0) 02/05/19 04:55 Neut # (Auto) 3.4 x10^3/uL (2.2-4.8) 02/05/19 04:55 Lymph # (Auto) 2.0 X10^3/uL (1.3-2.9) 02/05/19 04:55 [place] # (Auto) 0.7 x10^3/uL (0.3-0.8) 02/05/19 04:55 Eos # (Auto) 0.4 x10^3/uL (0.0-0.2) H 02/05/19 04:55 Baso # (Auto) 0.0 X10^3/uL (0.0-0.1) 02/05/19 04:55 Absolute Nucleated RBC 0.1 /100WBC 02/05/19 04:55 Sodium 141 mmol/L (136-145) 02/05/19 04:55 Corrected Sodium 143 mmol/L (136-145) 02/05/19 04:55 Potassium 3.6 mmol/L (3.5-5.1) 02/05/19 04:55 Chloride 106 mmol/L (98-107) 02/05/19 04:55 Carbon Dioxide 28.3 mmol/L (21-32) 02/05/19 04:55 BUN 17 mg/dL (7-18) 02/05/19 04:55 Creatinine 0.83 mg/dL (0.55-1.02) 02/05/19 04:55 Est GFR (MDRD) Af Amer > 60 (>60) 02/05/19 04:55 Est GFR (MDRD) Non-Af > 60 (>60) 02/05/19 04:55 Glucose 164 mg/dL (65-99) H 02/05/19 04:55 POC Glucose (mg/dL) 259 mg/dL (65-99) H 02/05/19 11:24 Lactic Acid 1.5 mmol/L (0.4-2.0) 02/03/19 17:28 Calcium 8.6 mg/dL (8.5-10.1) 02/05/19 04:55 Corrected Calcium 10.0 mg/dL (8.5-10.1) 02/05/19 04:55 Magnesium 1.9 mg/dL (1.7-2.9) 02/05/19 04:55 Total Bilirubin 0.30 mg/dL (0.2-1.0) 02/05/19 04:55 AST 20 Units/L (15-37) 02/05/19 04:55 ALT 20 Units/L (12-78) 02/05/19 04:55 Alkaline Phosphatase 57 Units/L (46-116) 02/05/19 04:55 Creatine Kinase 381 Units/L (26-192) H 02/05/19 04:55 CK-MB (CK-2) 1.4 ng/mL (0-4.0) 02/05/19 04:55 CK/CKMB % Calc 0.4 % (<4) 02/05/19 04:55 Troponin I 0.02 ng/mL (0-1.5) 02/05/19 04:55 C-Reactive Protein 106.00 mg/L (0-3.0) H 02/03/19 17:28 Total Protein 5.8 g/dL (6.4-8.2) L 02/05/19 04:55 Albumin 2.2 g/dL (3.4-5.0) L 02/05/19 04:55 Globulin 3.6 g/dL (2.5-4.5) 02/05/19 04:55 Albumin/Globulin Ratio 0.6 Ratio (1.1-2.1) L 02/05/19 04:55 Specimen Type Catherized urine 02/03/19 21:14 Urine Color Dark yellow (YELLOW) 02/03/19 21:14 Urine Appearance Cloudy (CLEAR) 02/03/19 21:14 Urine pH 6.0 (5.0 - 8.0) 02/03/19 21:14 Ur Specific [place] 1.025 (1.000-1.030) 02/03/19 21:14 Urine Protein 4+ (NEGATIVE) 02/03/19 21:14 Urine Glucose (UA) Negative (NEGATIVE) 02/03/19 21:14 Urine Ketones 3+ (NEGATIVE) 02/03/19 21:14 Urine Occult Blood 4+ (NEGATIVE) 02/03/19 21:14 Urine Nitrite Negative (NEGATIVE) 02/03/19 21:14 Urine Bilirubin Negative (NEGATIVE) 02/03/19 21:14 Urine Urobilinogen Normal (NORMAL) 02/03/19 21:14 Ur Leukocyte Esterase 1+ (NEGATIVE) 02/03/19 21:14 Urine RBC 0-2 /HPF (NONE SEEN) 02/03/19 21:14 Urine WBC 20-30 /HPF (NONE SEEN) 02/03/19 21:14 Ur Squamous Epith Cells Rare /HPF (NEGATIVE) 02/03/19 21:14 Urine Bacteria 4+ /HPF (NEGATIVE) 02/03/19 21:14 Ur Culture Indicated? Yes/culture set up 02/03/19 21:14 - Plan (1) Rhabdomyolysis Status: Acute Qualifiers: Rhabdomyolysis type: non-traumatic Qualified Code(s): M62.82 - Rhabdomyolysis Plan: NORMAL SALINE AT 75ML/HR, CONTINUE TO MONITOR CARDIAC ENZYMES (2) Weakness Status: Acute (3) UTI (urinary tract infection) Status: Acute Qualifiers: Urinary tract infection type: acute cystitis Hematuria presence: without hematuria Qualified Code(s): N30.00 - Acute cystitis without hematuria Plan: ROCEPHIN 1G IV DAILY, CONTINUE TO MONITOR
[2019-02-05] MEDS: TYLENOL #3 TAB (W/CODEINE) PO PRN (15:46)
[2019-02-05] MEDS: COLACE CAP 100 MG PO SCH (20:15)
[2019-02-05] MEDS: SEROquel TAB 100 MG PO SCH (20:15)
[2019-02-05] MEDS ORDERED: MILK OF MAGNESIA PO PRN (22:52)
[2019-02-06] MEDS: NS 1000 ML 1,000 ML IV SCH ×3 (02:09→15:51)
[2019-02-06 06:29] LABS: BASOPHILS # (AUTO) 0.1 X10^3/uL (0.0-0.1); BASOPHILS % (AUTO) 0.9 % (0.2-1.0); EOSINOPHILS # (AUTO) 0.3 x10^3/uL (0.0-0.2); EOSINOPHILS % (AUTO) 5.6 % (0.9-2.9); HEMATOCRIT 35.3 % (36.0-47.0); LYMPHOCYTES # (AUTO) 1.8 X10^3/uL (1.3-2.9); LYMPHOCYTES % (AUTO) 31.5 % (21.0-51.0); MEAN CORPUSCULAR HGB CONC 34.1 g/dL (33.0-35.0); MEAN CORPUSCULAR VOLUME 91.1 fL (80.0-100.0); MEAN PLATELET VOLUME 8.6 fL (7.4-11.0); MONOCYTES # (AUTO) 0.5 x10^3/uL (0.3-0.8); MONOCYTES % (AUTO) 9.6 % (0.0-13.0); NEUTROPHILS % (AUTO) 52.4 % (42.0-75.0); PLATELET COUNT 145 X10^3/uL (150.0-450.0); RED BLOOD COUNT 3.88 X10^6/uL (3.5-5.4); RED CELL DISTRIBUTION WIDTH 13.8 % (11.6-16.5); WHITE BLOOD COUNT 5.7 X10^3/uL (3.6-10.0)
[2019-02-06 07:03] LABS: ALANINE AMINOTRANSFERASE 20 Units/L (12-78); ALBUMIN 2.1 g/dL (3.4-5.0); ALKALINE PHOSPHATASE 60 Units/L (46-116); ASPARTATE AMINO TRANSFERASE 19 Units/L (15-37); BLOOD UREA NITROGEN 13 mg/dL (7-18); CALCIUM 8.5 mg/dL (8.5-10.1); CARBON DIOXIDE 26.4 mmol/L (21-32); CHLORIDE 108 mmol/L (98-107); CKMB % 0.7 % (<4); COR NA(FOR HYPERGLY) 144 mmol/L (136-145); CREATINE KINASE 188 Units/L (26-192); CREATINE KINASE MB 1.4 ng/mL (0-4.0); CREATININE 0.77 mg/dL (0.55-1.02); MAGNESIUM 1.9 mg/dL (1.7-2.9); SODIUM 143 mmol/L (136-145); TOTAL PROTEIN 5.8 g/dL (6.4-8.2); TROPONIN I < 0.02 ng/mL (0-1.5); eGFR NON BLACK RACES > 60 (>60)
[2019-02-06] MEDS ORDERED: ZOLOFT ONE (07:48)
[2019-02-06] MEDS: ZYLOPRIM PO SCH (08:49)
[2019-02-06] MEDS: ZANTAC PO SCH ×2 (08:49→21:09)
[2019-02-06] MEDS: LOVAZA PO SCH (08:49)
[2019-02-06] MEDS: FOLIC ACID TAB 1 MG PO SCH (08:50)
[2019-02-06] MEDS: TAB-A-VITE PO SCH (08:50)
[2019-02-06] MEDS: ZOLOFT PO SCH (08:50)
[2019-02-06] MEDS: VITAMIN B-12 PO SCH (08:50)
[2019-02-06] MEDS: SNACK - Diabetic Appropriate PO SCH ×2 (08:51→22:51)
[2019-02-06] MEDS: ROCEPHIN VIAL 1 GRAM IVP SCH (08:51)
[2019-02-06] MEDS: MILK OF MAGNESIA PO SCH (08:51)
[2019-02-06] MEDS: ASPIRIN DIPYRIDAMOLE PO SCH ×2 (08:58→22:50)
[2019-02-06] MEDS: NORCO 5/325 MG TAB PO PRN ×2 (08:58→21:09)
[2019-02-06] MEDS: DIFLUCAN 200 MG IV PREMIX* 200 MG/100 ML BAG IV SCH (11:26)
[2019-02-06] MEDS: INVANZ INJ 1 GM VIAL 1 GM in NS 100 ML IV + SPIKE MINIBAG* 100 ML IV SCH (11:27)
[2019-02-06] MEDS: HumuLIN R SUBCUT PRN ×2 (17:04→22:50)
--- NOTE | 2019-02-06 18:54 | PCM.PROG ---
Progress Note - Progress Note for Day of Date of Exam: 02/06/19 - Subjective Subjective: WAS ADMITTED FOR RHABDOMYOLYSIS, WEAKNESS, AND A URINARY TRACT INFECTION. HER MEDICAL HISTORY INCLUDES HTN, DIABETES, CVA, AND COPD. TODAY, SHE IS ALERT AND ORIENTED, LYING IN BED ON MORNING ROUNDS. SHE CONTINUES WITH COMPLAINTS OF WEAKNESS TODAY. SHE CONTINUES TO REPORT CRAMPING TO BILATERAL LOWER EXTREMITES. ON EXAMINATION, HEART IS REGULAR IN RATE AND RHYTHM. BILATERAL LUNGS ARE NOTED WITH DIMINISHED LUNG SOUNDS THROUGHOUT. ABDOMEN IS ROUND, SOFT, AND NON-TENDER WITH NORMAL BOWEL SOUNDS NOTED IN ALL QUADRANTS. BLE ARE NOTED WITH TRACE EDEMA. HER VITALS THIS MORNING ARE 97.9-88-16-91%-118/56. LABS WERE OBTAINED. ABNORMAL LAB VALUES INCLUDE THE FOLLOWING: GLUCOSE 164, CREATINE KINASE 381, TOTAL PROTEIN 5.8, ALBUMIN 2.2. URINE AND BLOOD CULTURES ARE PENDING. ECHO REVEALED AN EJECTION FRACTION OF 53%. NO CHANGES NOTED TO EKGs. SHE IS CURRENTLY RECEIVING IV HYDRATION AND ROCEPHIN 1G IV DAILY. WE WILL CONTINUE WITH CURRENT PLAN OF CARE TODAY AND START TORADOL 15MG IV Q6H PRN. OTHERWISE, WE PLAN TO FOLLOW UP WITH AM LABS AND CONTINUE TO MONITOR. - Past Medical Family Social History Past Med/Fam/Surg Hx: No changes since H&P Allergies: Allergies clopidogrel [From Plavix] Allergy (Verified 09/07/18 14:47) levofloxacin [From Levaquin] Allergy (Verified 09/07/18 14:47) nitrofurantoin [From Macrodantin] Allergy (Verified 09/07/18 14:47) Penicillins Allergy (Verified 09/07/18 14:47) - Review of Systems ROS: No change since H&P - Vital Signs and I&O's Vital Signs: Temperature 98.6 F Pulse Rate [Left Brachial] 81 Pulse Rate [Right Brachial] 85 Pulse Rate 83 Respiratory Rate 20 Blood Pressure [Left Arm] 136/64 Blood Pressure [Right Arm] 137/70 Blood Pressure 139/70 O2 Sat by Pulse Oximetry 98 Intake and Output: Intake & Output 02/04/19 02/05/19 02/06/19 02/07/19 11:59 11:59 11:59 11:59 Intake Total 390 / 390 1825 / 1825 2080 / 2080 1480 / 1480 Output Total 650 / 650 800 / 800 925 / 925 450 / 450 Balance -260 / -260 1025 / 1025 1155 / 1155 1030 / 1030 - Physical Exam Oriented: Normal, Person Eyes: Normal Ear: Normal Nose: Normal Throat: Normal Respiratory: Generalized, Diminished Cardiovascular: Tachycardia. negative: S3, S4, Murmur : Normal Auscultation: Bowel Sounds: Normal Palpation: Normal Tenderness: Normal Skin: Normal Musculoskeletal: Leg, Tender Psychiatric: Normal Mood Description: Calm Affect: Normal Speech Pattern: Clear, Appropriate - Laboratory and Diagnostics Result Diagrams: 02/06/19 06:04 02/06/19 06:04 Labs: 02/03/19 21:14 Urine,Catheterized Urine Culture - Final Escherichia Coli 02/03/19 17:28 Blood Blood Culture - Preliminary Laboratory WBC 5.7 X10^3/uL (3.6-10.0) 02/06/19 06:04 RBC 3.88 X10^6/uL (3.5-5.4) 02/06/19 06:04 Hgb 12.0 g/dL (12.0-16.0) 02/06/19 06:04 Hct 35.3 % (36.0-47.0) L 02/06/19 06:04 MCV 91.1 fL (80.0-100.0) 02/06/19 06:04 MCH 31.0 pg (27.0-34.0) 02/06/19 06:04 MCHC 34.1 g/dL (33.0-35.0) 02/06/19 06:04 RDW 13.8 % (11.6-16.5) 02/06/19 06:04 Plt Count 145 X10^3/uL (150.0-450.0) L 02/06/19 06:04 MPV 8.6 fL (7.4-11.0) 02/06/19 06:04 Neut % (Auto) 52.4 % (42.0-75.0) 02/06/19 06:04 Lymph % (Auto) 31.5 % (21.0-51.0) 02/06/19 06:04 Eddy % (Auto) 9.6 % (0.0-13.0) 02/06/19 06:04 Eos % (Auto) 5.6 % (0.9-2.9) H 02/06/19 06:04 Baso % (Auto) 0.9 % (0.2-1.0) 02/06/19 06:04 Neut # (Auto) 3.0 x10^3/uL (2.2-4.8) 02/06/19 06:04 Lymph # (Auto) 1.8 X10^3/uL (1.3-2.9) 02/06/19 06:04 Eddy # (Auto) 0.5 x10^3/uL (0.3-0.8) 02/06/19 06:04 Eos # (Auto) 0.3 x10^3/uL (0.0-0.2) H 02/06/19 06:04 Baso # (Auto) 0.1 X10^3/uL (0.0-0.1) 02/06/19 06:04 Absolute Nucleated RBC 0.0 /100WBC 02/06/19 06:04 Sodium 143 mmol/L (136-145) 02/06/19 06:04 Corrected Sodium 144 mmol/L (136-145) 02/06/19 06:04 Potassium 3.6 mmol/L (3.5-5.1) 02/06/19 06:04 Chloride 108 mmol/L (98-107) H 02/06/19 06:04 Carbon Dioxide 26.4 mmol/L (21-32) 02/06/19 06:04 BUN 13 mg/dL (7-18) 02/06/19 06:04 Creatinine 0.77 mg/dL (0.55-1.02) 02/06/19 06:04 Est GFR (MDRD) Af Amer > 60 (>60) 02/06/19 06:04 Est GFR (MDRD) Non-Af > 60 (>60) 02/06/19 06:04 Glucose 140 mg/dL (65-99) H 02/06/19 06:04 POC Glucose (mg/dL) 137 mg/dL (65-99) H 02/06/19 05:51 Lactic Acid 1.5 mmol/L (0.4-2.0) 02/03/19 17:28 Calcium 8.5 mg/dL (8.5-10.1) 02/06/19 06:04 Corrected Calcium 10.0 mg/dL (8.5-10.1) 02/06/19 06:04 Magnesium 1.9 mg/dL (1.7-2.9) 02/06/19 06:04 Total Bilirubin 0.30 mg/dL (0.2-1.0) 02/06/19 06:04 AST 19 Units/L (15-37) 02/06/19 06:04 ALT 20 Units/L (12-78) 02/06/19 06:04 Alkaline Phosphatase 60 Units/L (46-116) 02/06/19 06:04 Creatine Kinase 188 Units/L (26-192) 02/06/19 06:04 CK-MB (CK-2) 1.4 ng/mL (0-4.0) 02/06/19 06:04 CK/CKMB % Calc 0.7 % (<4) 02/06/19 06:04 Troponin I < 0.02 ng/mL (0-1.5) 02/06/19 06:04 C-Reactive Protein 106.00 mg/L (0-3.0) H 02/03/19 17:28 Total Protein 5.8 g/dL (6.4-8.2) L 02/06/19 06:04 Albumin 2.1 g/dL (3.4-5.0) L 02/06/19 06:04 Globulin 3.7 g/dL (2.5-4.5) 02/06/19 06:04 Albumin/Globulin Ratio 0.6 Ratio (1.1-2.1) L 02/06/19 06:04 Specimen Type Catherized urine 02/03/19 21:14 Urine Color Dark yellow (YELLOW) 02/03/19 21:14 Urine Appearance Cloudy (CLEAR) 02/03/19 21:14 Urine pH 6.0 (5.0 - 8.0) 02/03/19 21:14 Ur Specific [place] 1.025 (1.000-1.030) 02/03/19 21:14 Urine Protein 4+ (NEGATIVE) 02/03/19 21:14 Urine Glucose (UA) Negative (NEGATIVE) 02/03/19 21:14 Urine Ketones 3+ (NEGATIVE) 02/03/19 21:14 Urine Occult Blood 4+ (NEGATIVE) 02/03/19 21:14 Urine Nitrite Negative (NEGATIVE) 02/03/19 21:14 Urine Bilirubin Negative (NEGATIVE) 02/03/19 21:14 Urine Urobilinogen Normal (NORMAL) 02/03/19 21:14 Ur Leukocyte Esterase 1+ (NEGATIVE) 02/03/19 21:14 Urine RBC 0-2 /HPF (NONE SEEN) 02/03/19 21:14 Urine WBC 20-30 /HPF (NONE SEEN) 02/03/19 21:14 Ur Squamous Epith Cells Rare /HPF (NEGATIVE) 02/03/19 21:14 Urine Bacteria 4+ /HPF (NEGATIVE) 02/03/19 21:14 Ur Culture Indicated? Yes/culture set up 02/03/19 21:14 - Plan (1) Rhabdomyolysis Status: Acute Qualifiers: Rhabdomyolysis type: non-traumatic Qualified Code(s): M62.82 - Rhabdomyolysis Plan: NORMAL SALINE AT 75ML/HR, CONTINUE TO MONITOR CARDIAC ENZYMES (2) Weakness Status: Acute (3) UTI (urinary tract infection) Status: Acute Qualifiers: Urinary tract infection type: acute cystitis Hematuria presence: without hematuria Qualified Code(s): N30.00 - Acute cystitis without hematuria Plan: INVANZ 1G IV DAILY, CONTINUE TO MONITOR
[2019-02-06] MEDS: COLACE CAP 100 MG PO SCH (21:07)
[2019-02-06] MEDS: SEROquel TAB 100 MG PO SCH (21:08)
[2019-02-07 05:23] LABS: BASOPHILS % (AUTO) 0.9 % (0.2-1.0); EOSINOPHILS # (AUTO) 0.4 x10^3/uL (0.0-0.2); EOSINOPHILS % (AUTO) 7.2 % (0.9-2.9); HEMATOCRIT 35.6 % (36.0-47.0); LYMPHOCYTES # (AUTO) 1.7 X10^3/uL (1.3-2.9); LYMPHOCYTES % (AUTO) 30.9 % (21.0-51.0); MEAN CORPUSCULAR HEMOGLOBIN 31.2 pg (27.0-34.0); MEAN CORPUSCULAR HGB CONC 33.9 g/dL (33.0-35.0); MEAN CORPUSCULAR VOLUME 92.2 fL (80.0-100.0); MEAN PLATELET VOLUME 8.9 fL (7.4-11.0); MONOCYTES # (AUTO) 0.6 x10^3/uL (0.3-0.8); MONOCYTES % (AUTO) 10.6 % (0.0-13.0); NEUTROPHILS # (AUTO) 2.7 x10^3/uL (2.2-4.8); NEUTROPHILS % (AUTO) 50.4 % (42.0-75.0); PLATELET COUNT 159 X10^3/uL (150.0-450.0); RED BLOOD COUNT 3.86 X10^6/uL (3.5-5.4); RED CELL DISTRIBUTION WIDTH 13.5 % (11.6-16.5); WHITE BLOOD COUNT 5.4 X10^3/uL (3.6-10.0)
[2019-02-07 05:54] LABS: ALANINE AMINOTRANSFERASE 21 Units/L (12-78); ALBUMIN 2.2 g/dL (3.4-5.0); ALKALINE PHOSPHATASE 62 Units/L (46-116); ASPARTATE AMINO TRANSFERASE 17 Units/L (15-37); BLOOD UREA NITROGEN 11 mg/dL (7-18); CALCIUM 8.4 mg/dL (8.5-10.1); CARBON DIOXIDE 27.3 mmol/L (21-32); CHLORIDE 107 mmol/L (98-107); CKMB % 0.9 % (<4); COR CA(FOR HYPOALB) 9.8 mg/dL (8.5-10.1); COR NA(FOR HYPERGLY) 144 mmol/L (136-145); CREATINE KINASE 118 Units/L (26-192); CREATINE KINASE MB < 1.0 ng/mL (0-4.0); CREATININE 0.74 mg/dL (0.55-1.02); SODIUM 142 mmol/L (136-145); TOTAL PROTEIN 5.7 g/dL (6.4-8.2); TROPONIN I < 0.02 ng/mL (0-1.5); eGFR NON BLACK RACES > 60 (>60)
[2019-02-07] MEDS: NS 1000 ML 1,000 ML IV SCH ×2 (06:00→17:01)
[2019-02-07] MEDS: HumuLIN R SUBCUT PRN ×2 (06:01→22:19)
[2019-02-07] MEDS: NORCO 5/325 MG TAB PO PRN ×2 (06:57→21:55)
[2019-02-07] MEDS ORDERED: ZOLOFT ONE (07:32)
[2019-02-07] MEDS: INVANZ INJ 1 GM VIAL 1 GM in NS 100 ML IV + SPIKE MINIBAG* 100 ML IV SCH (08:39)
[2019-02-07] MEDS: VITAMIN B-12 PO SCH (08:40)
[2019-02-07] MEDS: DIFLUCAN 200 MG IV PREMIX* 200 MG/100 ML BAG IV SCH (08:40)
[2019-02-07] MEDS: LOVAZA PO SCH (08:40)
[2019-02-07] MEDS: MILK OF MAGNESIA PO SCH (08:40)
[2019-02-07] MEDS: ZOLOFT PO SCH (08:41)
[2019-02-07] MEDS: K-DUR TAB 20 MEQ PO PRN (08:41)
[2019-02-07] MEDS: TAB-A-VITE PO SCH (08:41)
[2019-02-07] MEDS: ZYLOPRIM PO SCH (08:42)
[2019-02-07] MEDS: FOLIC ACID TAB 1 MG PO SCH (08:42)
[2019-02-07] MEDS: ZANTAC PO SCH ×2 (08:42→21:55)
[2019-02-07] MEDS: ASPIRIN DIPYRIDAMOLE PO SCH ×2 (08:44→21:53)
[2019-02-07] MEDS: SNACK - Diabetic Appropriate PO SCH (21:53)
[2019-02-07] MEDS: COLACE CAP 100 MG PO SCH (21:53)
[2019-02-07] MEDS: SEROquel TAB 100 MG PO SCH (21:54)
[2019-02-08] MEDS: NS 1000 ML 1,000 ML IV SCH ×3 (05:51→19:30)
[2019-02-08] MEDS: HumuLIN R SUBCUT PRN ×3 (05:52→20:49)
[2019-02-08 06:09] LABS: BASOPHILS % (AUTO) 0.8 % (0.2-1.0); EOSINOPHILS # (AUTO) 0.3 x10^3/uL (0.0-0.2); EOSINOPHILS % (AUTO) 6.3 % (0.9-2.9); HEMATOCRIT 33.5 % (36.0-47.0); HEMOGLOBIN 11.4 g/dL (12.0-16.0); LYMPHOCYTES # (AUTO) 1.8 X10^3/uL (1.3-2.9); LYMPHOCYTES % (AUTO) 32.3 % (21.0-51.0); MEAN CORPUSCULAR HEMOGLOBIN 31.1 pg (27.0-34.0); MEAN CORPUSCULAR HGB CONC 34.2 g/dL (33.0-35.0); MEAN PLATELET VOLUME 8.6 fL (7.4-11.0); MONOCYTES # (AUTO) 0.6 x10^3/uL (0.3-0.8); MONOCYTES % (AUTO) 10.3 % (0.0-13.0); NEUTROPHILS # (AUTO) 2.7 x10^3/uL (2.2-4.8); NEUTROPHILS % (AUTO) 50.3 % (42.0-75.0); PLATELET COUNT 164 X10^3/uL (150.0-450.0); RED BLOOD COUNT 3.68 X10^6/uL (3.5-5.4); RED CELL DISTRIBUTION WIDTH 13.3 % (11.6-16.5); WHITE BLOOD COUNT 5.5 X10^3/uL (3.6-10.0)
[2019-02-08 06:29] LABS: ALANINE AMINOTRANSFERASE 18 Units/L (12-78); ALKALINE PHOSPHATASE 56 Units/L (46-116); ASPARTATE AMINO TRANSFERASE 14 Units/L (15-37); BLOOD UREA NITROGEN 8 mg/dL (7-18); CALCIUM 8.4 mg/dL (8.5-10.1); CARBON DIOXIDE 28.7 mmol/L (21-32); CHLORIDE 107 mmol/L (98-107); COR NA(FOR HYPERGLY) 143 mmol/L (136-145); CREATININE 0.72 mg/dL (0.55-1.02); SODIUM 141 mmol/L (136-145); TOTAL PROTEIN 5.4 g/dL (6.4-8.2); eGFR NON BLACK RACES > 60 (>60)
[2019-02-08] MEDS ORDERED: ZOLOFT ONE (09:09)
[2019-02-08] MEDS: INVANZ INJ 1 GM VIAL 1 GM in NS 100 ML IV + SPIKE MINIBAG* 100 ML IV SCH (09:26)
[2019-02-08] MEDS: FOLIC ACID TAB 1 MG PO SCH (09:27)
[2019-02-08] MEDS: DIFLUCAN 200 MG IV PREMIX* 200 MG/100 ML BAG IV SCH (09:27)
[2019-02-08] MEDS: TAB-A-VITE PO SCH (09:27)
[2019-02-08] MEDS: VITAMIN B-12 PO SCH (09:27)
[2019-02-08] MEDS: ZOLOFT PO SCH (09:28)
[2019-02-08] MEDS: ZANTAC PO SCH ×2 (09:28→20:41)
[2019-02-08] MEDS: LOVAZA PO SCH (09:28)
[2019-02-08] MEDS: MILK OF MAGNESIA PO SCH ×2 (09:28→12:05)
[2019-02-08] MEDS: ZYLOPRIM PO SCH (09:28)
[2019-02-08] MEDS: ASPIRIN DIPYRIDAMOLE PO SCH ×2 (09:33→20:41)
[2019-02-08] MEDS ORDERED: DULCOLAX SUPPOSITORY 10 MG RECTAL ONE (10:18)
[2019-02-08] MEDS: SNACK - Diabetic Appropriate PO SCH (20:40)
[2019-02-08] MEDS: COLACE CAP 100 MG PO SCH (20:41)
[2019-02-08] MEDS: SEROquel TAB 100 MG PO SCH (20:42)
[2019-02-09] MEDS: NS 1000 ML 1,000 ML IV SCH ×3 (00:41→21:04)
[2019-02-09] MEDS: NORCO 5/325 MG TAB PO PRN ×2 (01:07→20:38)
[2019-02-09 05:31] LABS: BASOPHILS # (AUTO) 0.1 X10^3/uL (0.0-0.1); BASOPHILS % (AUTO) 1.1 % (0.2-1.0); EOSINOPHILS # (AUTO) 0.3 x10^3/uL (0.0-0.2); EOSINOPHILS % (AUTO) 6.3 % (0.9-2.9); HEMATOCRIT 34.2 % (36.0-47.0); HEMOGLOBIN 11.4 g/dL (12.0-16.0); LYMPHOCYTES # (AUTO) 1.7 X10^3/uL (1.3-2.9); LYMPHOCYTES % (AUTO) 33.2 % (21.0-51.0); MEAN CORPUSCULAR HEMOGLOBIN 30.8 pg (27.0-34.0); MEAN CORPUSCULAR HGB CONC 33.5 g/dL (33.0-35.0); MEAN CORPUSCULAR VOLUME 91.9 fL (80.0-100.0); MEAN PLATELET VOLUME 8.9 fL (7.4-11.0); MONOCYTES # (AUTO) 0.6 x10^3/uL (0.3-0.8); MONOCYTES % (AUTO) 10.8 % (0.0-13.0); NEUTROPHILS # (AUTO) 2.5 x10^3/uL (2.2-4.8); NEUTROPHILS % (AUTO) 48.6 % (42.0-75.0); PLATELET COUNT 163 X10^3/uL (150.0-450.0); RED BLOOD COUNT 3.72 X10^6/uL (3.5-5.4); RED CELL DISTRIBUTION WIDTH 13.3 % (11.6-16.5); WHITE BLOOD COUNT 5.2 X10^3/uL (3.6-10.0)
[2019-02-09 05:46] LABS: ALANINE AMINOTRANSFERASE 15 Units/L (12-78); ALBUMIN 2.3 g/dL (3.4-5.0); ALKALINE PHOSPHATASE 63 Units/L (46-116); ASPARTATE AMINO TRANSFERASE 15 Units/L (15-37); BLOOD UREA NITROGEN 4 mg/dL (7-18); CHLORIDE 106 mmol/L (98-107); COR CA(FOR HYPOALB) 10.4 mg/dL (8.5-10.1); COR NA(FOR HYPERGLY) 142 mmol/L (136-145); CREATININE 0.79 mg/dL (0.55-1.02); SODIUM 141 mmol/L (136-145); TOTAL PROTEIN 5.6 g/dL (6.4-8.2); eGFR NON BLACK RACES > 60 (>60)
[2019-02-09] MEDS: K-DUR TAB 20 MEQ PO PRN (06:37)
[2019-02-09] MEDS ORDERED: ZOLOFT ONE (08:50)
[2019-02-09] MEDS: INVANZ INJ 1 GM VIAL 1 GM in NS 100 ML IV + SPIKE MINIBAG* 100 ML IV SCH (09:39)
[2019-02-09] MEDS: ZANTAC PO SCH ×2 (09:40→20:38)
[2019-02-09] MEDS: TAB-A-VITE PO SCH (09:40)
[2019-02-09] MEDS: LOVAZA PO SCH (09:40)
[2019-02-09] MEDS: VITAMIN B-12 PO SCH (09:40)
[2019-02-09] MEDS: DIFLUCAN 200 MG IV PREMIX* 200 MG/100 ML BAG IV SCH (09:40)
[2019-02-09] MEDS: FOLIC ACID TAB 1 MG PO SCH (09:40)
[2019-02-09] MEDS: ZYLOPRIM PO SCH (09:40)
[2019-02-09] MEDS: ZOLOFT PO SCH (09:41)
[2019-02-09] MEDS: ASPIRIN DIPYRIDAMOLE PO SCH ×2 (09:41→22:15)
[2019-02-09] MEDS: MILK OF MAGNESIA PO SCH (09:41)
[2019-02-09] MEDS: SEROquel TAB 100 MG PO SCH (20:40)
[2019-02-09] MEDS: COLACE CAP 100 MG PO SCH (20:40)
[2019-02-09] MEDS: HumuLIN R SUBCUT PRN (20:41)
[2019-02-09] MEDS: SNACK - Diabetic Appropriate PO SCH (21:05)
[2019-02-09] MEDS: COREG TAB 12.5 MG PO SCH (21:45)
[2019-02-10 05:25] LABS: BASOPHILS % (AUTO) 0.8 % (0.2-1.0); EOSINOPHILS # (AUTO) 0.3 x10^3/uL (0.0-0.2); HEMOGLOBIN 11.8 g/dL (12.0-16.0); LYMPHOCYTES # (AUTO) 1.7 X10^3/uL (1.3-2.9); LYMPHOCYTES % (AUTO) 32.1 % (21.0-51.0); MEAN CORPUSCULAR HEMOGLOBIN 30.8 pg (27.0-34.0); MEAN CORPUSCULAR HGB CONC 33.7 g/dL (33.0-35.0); MEAN CORPUSCULAR VOLUME 91.4 fL (80.0-100.0); MONOCYTES # (AUTO) 0.6 x10^3/uL (0.3-0.8); MONOCYTES % (AUTO) 11.8 % (0.0-13.0); NEUTROPHILS # (AUTO) 2.5 x10^3/uL (2.2-4.8); NEUTROPHILS % (AUTO) 49.3 % (42.0-75.0); PLATELET COUNT 164 X10^3/uL (150.0-450.0); RED BLOOD COUNT 3.83 X10^6/uL (3.5-5.4); RED CELL DISTRIBUTION WIDTH 13.2 % (11.6-16.5); WHITE BLOOD COUNT 5.2 X10^3/uL (3.6-10.0)
[2019-02-10 05:34] LABS: ALANINE AMINOTRANSFERASE 19 Units/L (12-78); ALBUMIN 2.3 g/dL (3.4-5.0); ALKALINE PHOSPHATASE 65 Units/L (46-116); ASPARTATE AMINO TRANSFERASE 15 Units/L (15-37); BLOOD UREA NITROGEN 2 mg/dL (7-18); CALCIUM 9.2 mg/dL (8.5-10.1); CARBON DIOXIDE 28.2 mmol/L (21-32); CHLORIDE 105 mmol/L (98-107); COR CA(FOR HYPOALB) 10.6 mg/dL (8.5-10.1); COR NA(FOR HYPERGLY) 143 mmol/L (136-145); CREATININE 0.85 mg/dL (0.55-1.02); SODIUM 141 mmol/L (136-145); TOTAL PROTEIN 5.6 g/dL (6.4-8.2); eGFR NON BLACK RACES > 60 (>60)
[2019-02-10] MEDS: HumuLIN R SUBCUT PRN ×3 (06:01→21:02)
[2019-02-10] MEDS: POTASSIUM CHLORIDE LIQ 20 MEQ UDC PO PRN (06:35)
[2019-02-10] MEDS ORDERED: ZOLOFT ONE (08:28)
[2019-02-10] MEDS: INVANZ INJ 1 GM VIAL 1 GM in NS 100 ML IV + SPIKE MINIBAG* 100 ML IV SCH (08:34)
[2019-02-10] MEDS: DIFLUCAN 200 MG IV PREMIX* 200 MG/100 ML BAG IV SCH (08:35)
[2019-02-10] MEDS: VITAMIN B-12 PO SCH (08:36)
[2019-02-10] MEDS: COREG TAB 12.5 MG PO SCH ×2 (08:36→20:24)
[2019-02-10] MEDS: ZANTAC PO SCH ×2 (08:36→20:23)
[2019-02-10] MEDS: ZYLOPRIM PO SCH (08:37)
[2019-02-10] MEDS: LOVAZA PO SCH (08:37)
[2019-02-10] MEDS: FOLIC ACID TAB 1 MG PO SCH (08:37)
[2019-02-10] MEDS: ZOLOFT PO SCH (08:37)
[2019-02-10] MEDS: TAB-A-VITE PO SCH (08:37)
[2019-02-10] MEDS: ASPIRIN DIPYRIDAMOLE PO SCH ×2 (08:41→20:21)
[2019-02-10] MEDS: MILK OF MAGNESIA PO SCH (08:47)
[2019-02-10] MEDS: NORCO 5/325 MG TAB PO PRN (15:33)
[2019-02-10] MEDS: NS 1000 ML 1,000 ML IV SCH ×2 (16:36→21:00)
[2019-02-10] MEDS: COLACE CAP 100 MG PO SCH (20:23)
[2019-02-10] MEDS: SEROquel TAB 100 MG PO SCH (20:26)
[2019-02-10] MEDS: SNACK - Diabetic Appropriate PO SCH (21:02)
--- NOTE | 2019-02-10 21:44 | PCM.PROG ---
Progress Note - Progress Note for Day of Date of Exam: 02/07/19 - Subjective Subjective: WAS ADMITTED FOR RHABDOMYOLYSIS, WEAKNESS, AND A URINARY TRACT INFECTION. HER MEDICAL HISTORY INCLUDES HTN, DIABETES, CVA, AND COPD. TODAY, SHE IS ALERT AND ORIENTED, LYING IN BED ON MORNING ROUNDS. SHE CONTINUES WITH COMPLAINTS OF WEAKNESS AND LEG PAIN TODAY. ON EXAMINATION, HEART IS REGULAR IN RATE AND RHYTHM. BILATERAL LUNGS ARE NOTED WITH DIMINISHED LUNG SOUNDS THROUGHOUT. ABDOMEN IS ROUND, SOFT, AND NON-TENDER WITH NORMAL BOWEL SOUNDS NOTED IN ALL QUADRANTS. BLE ARE NOTED WITH TRACE EDEMA. HER VITALS THIS MORNING ARE 98.3-81-18-96%-154/68. LABS WERE OBTAINED. ABNORMAL LAB VALUES INCLUDE THE FOLLOWING: HCT 35.6, GLUCOSE 167, CALCIUM 8.4, TOTAL PROTEIN 5.7, ALBUMIN 2.2. URINE CULTURE REVEALED GROWTH OF E.COLI. IT IS RESISTENT TO THE ROCEPHIN THAT SHE IS RECEIVING. WE WILL DISCONTINUE THE ROCEPHIN AND START INVANZ 1G IV DAILY TODAY. OTHERWISE, WE WILL CONTINUE WITH CURRENT PLAN OF CARE TODAY. WE WILL HAVE PHYSICAL THERAPY WORK WITH PATIENT. WE PLAN TO FOLLOW UP WITH AM LABS AND CONTINUE TO MONITOR. - Past Medical Family Social History Past Med/Fam/Surg Hx: No changes since H&P Allergies: Allergies clopidogrel [From Plavix] Allergy (Verified 09/07/18 14:47) levofloxacin [From Levaquin] Allergy (Verified 09/07/18 14:47) nitrofurantoin [From Macrodantin] Allergy (Verified 09/07/18 14:47) Penicillins Allergy (Verified 09/07/18 14:47) - Review of Systems ROS: No change since H&P - Vital Signs and I&O's Vital Signs: Temperature 98.3 F Pulse Rate [Left Brachial] 72 Pulse Rate [Right Brachial] 85 Pulse Rate 79 Respiratory Rate 16 Blood Pressure [Left Arm] 152/72 Blood Pressure [Right Arm] 137/70 Blood Pressure 139/70 O2 Sat by Pulse Oximetry 98 Intake and Output: Intake & Output 02/08/19 02/09/19 02/10/19 02/11/19 11:59 11:59 11:59 11:59 Intake Total 2160 / 2160 1415 / 1415 2878 / 2878 1332 / 1332 Output Total 1650 / 1650 Balance 510 / 510 1415 / 1415 2878 / 2878 1332 / 1332 - Physical Exam Oriented: Normal, Person Eyes: Normal Ear: Normal Nose: Normal Throat: Normal Respiratory: Generalized, Diminished Cardiovascular: Tachycardia. negative: S3, S4, Murmur : Normal Auscultation: Bowel Sounds: Normal Tenderness: Normal Skin: Normal Musculoskeletal: Leg, Tender Psychiatric: Normal Mood Description: Calm Affect: Normal Speech Pattern: Clear, Appropriate - Laboratory and Diagnostics Result Diagrams: 02/10/19 04:45 02/10/19 04:45 Labs: 02/03/19 17:28 Blood Blood Culture - Final 02/03/19 21:14 Urine,Catheterized Urine Culture - Final Escherichia Coli Laboratory WBC 5.2 X10^3/uL (3.6-10.0) 02/10/19 04:45 RBC 3.83 X10^6/uL (3.5-5.4) 02/10/19 04:45 Hgb 11.8 g/dL (12.0-16.0) L 02/10/19 04:45 Hct 35.0 % (36.0-47.0) L 02/10/19 04:45 MCV 91.4 fL (80.0-100.0) 02/10/19 04:45 MCH 30.8 pg (27.0-34.0) 02/10/19 04:45 MCHC 33.7 g/dL (33.0-35.0) 02/10/19 04:45 RDW 13.2 % (11.6-16.5) 02/10/19 04:45 Plt Count 164 X10^3/uL (150.0-450.0) 02/10/19 04:45 MPV 9.0 fL (7.4-11.0) 02/10/19 04:45 Neut % (Auto) 49.3 % (42.0-75.0) 02/10/19 04:45 Lymph % (Auto) 32.1 % (21.0-51.0) 02/10/19 04:45 [place] % (Auto) 11.8 % (0.0-13.0) 02/10/19 04:45 Eos % (Auto) 6.0 % (0.9-2.9) H 02/10/19 04:45 Baso % (Auto) 0.8 % (0.2-1.0) 02/10/19 04:45 Neut # (Auto) 2.5 x10^3/uL (2.2-4.8) 02/10/19 04:45 Lymph # (Auto) 1.7 X10^3/uL (1.3-2.9) 02/10/19 04:45 [place] # (Auto) 0.6 x10^3/uL (0.3-0.8) 02/10/19 04:45 Eos # (Auto) 0.3 x10^3/uL (0.0-0.2) H 02/10/19 04:45 Baso # (Auto) 0.0 X10^3/uL (0.0-0.1) 02/10/19 04:45 Absolute Nucleated RBC 0.0 /100WBC 02/10/19 04:45 Sodium 141 mmol/L (136-145) 02/10/19 04:45 Corrected Sodium 143 mmol/L (136-145) 02/10/19 04:45 Potassium 3.4 mmol/L (3.5-5.1) L 02/10/19 04:45 Chloride 105 mmol/L (98-107) 02/10/19 04:45 Carbon Dioxide 28.2 mmol/L (21-32) 02/10/19 04:45 BUN 2 mg/dL (7-18) L 02/10/19 04:45 Creatinine 0.85 mg/dL (0.55-1.02) 02/10/19 04:45 Est GFR (MDRD) Af Amer > 60 (>60) 02/10/19 04:45 Est GFR (MDRD) Non-Af > 60 (>60) 02/10/19 04:45 Glucose 167 mg/dL (65-99) H 02/10/19 04:45 POC Glucose (mg/dL) 166 mg/dL (65-99) H 02/10/19 20:30 Lactic Acid 1.5 mmol/L (0.4-2.0) 02/03/19 17:28 Calcium 9.2 mg/dL (8.5-10.1) 02/10/19 04:45 Corrected Calcium 10.6 mg/dL (8.5-10.1) H 02/10/19 04:45 Magnesium 2.0 mg/dL (1.7-2.9) 02/10/19 05:15 Total Bilirubin 0.20 mg/dL (0.2-1.0) 02/10/19 04:45 AST 15 Units/L (15-37) 02/10/19 04:45 ALT 19 Units/L (12-78) 02/10/19 04:45 Alkaline Phosphatase 65 Units/L (46-116) 02/10/19 04:45 Creatine Kinase 118 Units/L (26-192) 02/07/19 05:06 CK-MB (CK-2) < 1.0 ng/mL (0-4.0) 02/07/19 05:06 CK/CKMB % Calc 0.9 % (<4) 02/07/19 05:06 Troponin I < 0.02 ng/mL (0-1.5) 02/07/19 05:06 C-Reactive Protein 106.00 mg/L (0-3.0) H 02/03/19 17:28 Total Protein 5.6 g/dL (6.4-8.2) L 02/10/19 04:45 Albumin 2.3 g/dL (3.4-5.0) L 02/10/19 04:45 Globulin 3.3 g/dL (2.5-4.5) 02/10/19 04:45 Albumin/Globulin Ratio 0.7 Ratio (1.1-2.1) L 02/10/19 04:45 Specimen Type Catherized urine 02/03/19 21:14 Urine Color Dark yellow (YELLOW) 02/03/19 21:14 Urine Appearance Cloudy (CLEAR) 02/03/19 21:14 Urine pH 6.0 (5.0 - 8.0) 02/03/19 21:14 Ur Specific [place] 1.025 (1.000-1.030) 02/03/19 21:14 Urine Protein 4+ (NEGATIVE) 02/03/19 21:14 Urine Glucose (UA) Negative (NEGATIVE) 02/03/19 21:14 Urine Ketones 3+ (NEGATIVE) 02/03/19 21:14 Urine Occult Blood 4+ (NEGATIVE) 02/03/19 21:14 Urine Nitrite Negative (NEGATIVE) 02/03/19 21:14 Urine Bilirubin Negative (NEGATIVE) 02/03/19 21:14 Urine Urobilinogen Normal (NORMAL) 02/03/19 21:14 Ur Leukocyte Esterase 1+ (NEGATIVE) 02/03/19 21:14 Urine RBC 0-2 /HPF (NONE SEEN) 02/03/19 21:14 Urine WBC 20-30 /HPF (NONE SEEN) 02/03/19 21:14 Ur Squamous Epith Cells Rare /HPF (NEGATIVE) 02/03/19 21:14 Urine Bacteria 4+ /HPF (NEGATIVE) 02/03/19 21:14 Ur Culture Indicated? Yes/culture set up 02/03/19 21:14 - Plan (1) Rhabdomyolysis Status: Acute Qualifiers: Rhabdomyolysis type: non-traumatic Qualified Code(s): M62.82 - Rhabdomyolysis Plan: NORMAL SALINE AT 75ML/HR, CONTINUE TO MONITOR CARDIAC ENZYMES (2) Weakness Status: Acute (3) UTI (urinary tract infection) Status: Acute Qualifiers: Urinary tract infection type: acute cystitis Hematuria presence: without hematuria Qualified Code(s): N30.00 - Acute cystitis without hematuria Plan: INVANZ 1G IV DAILY, CONTINUE TO MONITOR
--- NOTE | 2019-02-10 21:54 | PCM.PROG ---
Progress Note - Progress Note for Day of Date of Exam: 02/08/19 - Subjective Subjective: WAS ADMITTED FOR RHABDOMYOLYSIS, WEAKNESS, AND A URINARY TRACT INFECTION DUE TO E.COLI. HER MEDICAL HISTORY INCLUDES HTN, DIABETES, CVA, AND COPD. TODAY, SHE IS ALERT AND ORIENTED, LYING IN BED ON MORNING ROUNDS. SHE CONTINUES WITH COMPLAINTS OF WEAKNESS AND LEG PAIN TODAY. ON EXAMINATION, HEART IS REGULAR IN RATE AND RHYTHM. BILATERAL LUNGS ARE NOTED WITH DIMINISHED LUNG SOUNDS THROUGHOUT. ABDOMEN IS ROUND, SOFT, AND NON-TENDER WITH NORMAL BOWEL SOUNDS NOTED IN ALL QUADRANTS. HER VITALS THIS MORNING ARE 97.9-81-18-97%-145/68. LABS WERE OBTAINED. ABNORMAL LAB VALUES INCLUDE THE FOLLOWING: HGB 11.4, HCT 33.5, GLUCOSE 165, CALCIUM 8.4, ALT 14, TOTAL PROTEIN 5.4, ALBUMIN 2.0. SHE IS CURRENTLY RECEIVING IV FLUIDS AND INVANZ 1G IV DAILY FOR GROWTH OF E.COLI IN URINE. WE WILL CONTINUE WITH CURRENT PLAN OF CARE TODAY. PHYSICAL THERAPY RECOMMENDS PHYSICAL THERAPY AND REHAB AT [facility]. WE HAVE DISCUSSED THIS WITH PATIENT AND SHE IS IN AGREEMENT WITH PLAN. WE WILL DISCUSS PLACEMENT WITH CASE MANAGEMENT. OTHERWISE, WE PLAN TO FOLLOW UP WITH AM LABS AND CONTINUE TO MONITOR. - Past Medical Family Social History Past Med/Fam/Surg Hx: No changes since H&P Allergies: Allergies clopidogrel [From Plavix] Allergy (Verified 09/07/18 14:47) levofloxacin [From Levaquin] Allergy (Verified 09/07/18 14:47) nitrofurantoin [From Macrodantin] Allergy (Verified 09/07/18 14:47) Penicillins Allergy (Verified 09/07/18 14:47) - Review of Systems ROS: No change since H&P - Vital Signs and I&O's Vital Signs: Temperature 98.3 F Pulse Rate [Left Brachial] 72 Pulse Rate [Right Brachial] 85 Pulse Rate 79 Respiratory Rate 16 Blood Pressure [Left Arm] 152/72 Blood Pressure [Right Arm] 137/70 Blood Pressure 139/70 O2 Sat by Pulse Oximetry 98 Intake and Output: Intake & Output 02/08/19 02/09/19 02/10/19 02/11/19 11:59 11:59 11:59 11:59 Intake Total 2160 / 2160 1415 / 1415 2878 / 2878 1332 / 1332 Output Total 1650 / 1650 Balance 510 / 510 1415 / 1415 2878 / 2878 1332 / 1332 - Physical Exam Oriented: Normal, Person Eyes: Normal Ear: Normal Nose: Normal Throat: Normal Respiratory: Generalized, Diminished Cardiovascular: Tachycardia. negative: S3, S4, Murmur : Normal Auscultation: Bowel Sounds: Normal Palpation: Normal Tenderness: Normal Skin: Normal Musculoskeletal: Leg, Tender Psychiatric: Normal Mood Description: Calm Affect: Normal Speech Pattern: Clear, Appropriate - Laboratory and Diagnostics Result Diagrams: 02/10/19 04:45 02/10/19 04:45 Labs: 02/03/19 17:28 Blood Blood Culture - Final 02/03/19 21:14 Urine,Catheterized Urine Culture - Final Escherichia Coli Laboratory WBC 5.2 X10^3/uL (3.6-10.0) 02/10/19 04:45 RBC 3.83 X10^6/uL (3.5-5.4) 02/10/19 04:45 Hgb 11.8 g/dL (12.0-16.0) L 02/10/19 04:45 Hct 35.0 % (36.0-47.0) L 02/10/19 04:45 MCV 91.4 fL (80.0-100.0) 02/10/19 04:45 MCH 30.8 pg (27.0-34.0) 02/10/19 04:45 MCHC 33.7 g/dL (33.0-35.0) 02/10/19 04:45 RDW 13.2 % (11.6-16.5) 02/10/19 04:45 Plt Count 164 X10^3/uL (150.0-450.0) 02/10/19 04:45 MPV 9.0 fL (7.4-11.0) 02/10/19 04:45 Neut % (Auto) 49.3 % (42.0-75.0) 02/10/19 04:45 Lymph % (Auto) 32.1 % (21.0-51.0) 02/10/19 04:45 [place] % (Auto) 11.8 % (0.0-13.0) 02/10/19 04:45 Eos % (Auto) 6.0 % (0.9-2.9) H 02/10/19 04:45 Baso % (Auto) 0.8 % (0.2-1.0) 02/10/19 04:45 Neut # (Auto) 2.5 x10^3/uL (2.2-4.8) 02/10/19 04:45 Lymph # (Auto) 1.7 X10^3/uL (1.3-2.9) 02/10/19 04:45 [place] # (Auto) 0.6 x10^3/uL (0.3-0.8) 02/10/19 04:45 Eos # (Auto) 0.3 x10^3/uL (0.0-0.2) H 02/10/19 04:45 Baso # (Auto) 0.0 X10^3/uL (0.0-0.1) 02/10/19 04:45 Absolute Nucleated RBC 0.0 /100WBC 02/10/19 04:45 Sodium 141 mmol/L (136-145) 02/10/19 04:45 Corrected Sodium 143 mmol/L (136-145) 02/10/19 04:45 Potassium 3.4 mmol/L (3.5-5.1) L 02/10/19 04:45 Chloride 105 mmol/L (98-107) 02/10/19 04:45 Carbon Dioxide 28.2 mmol/L (21-32) 02/10/19 04:45 BUN 2 mg/dL (7-18) L 02/10/19 04:45 Creatinine 0.85 mg/dL (0.55-1.02) 02/10/19 04:45 Est GFR (MDRD) Af Amer > 60 (>60) 02/10/19 04:45 Est GFR (MDRD) Non-Af > 60 (>60) 02/10/19 04:45 Glucose 167 mg/dL (65-99) H 02/10/19 04:45 POC Glucose (mg/dL) 166 mg/dL (65-99) H 02/10/19 20:30 Lactic Acid 1.5 mmol/L (0.4-2.0) 02/03/19 17:28 Calcium 9.2 mg/dL (8.5-10.1) 02/10/19 04:45 Corrected Calcium 10.6 mg/dL (8.5-10.1) H 02/10/19 04:45 Magnesium 2.0 mg/dL (1.7-2.9) 02/10/19 05:15 Total Bilirubin 0.20 mg/dL (0.2-1.0) 02/10/19 04:45 AST 15 Units/L (15-37) 02/10/19 04:45 ALT 19 Units/L (12-78) 02/10/19 04:45 Alkaline Phosphatase 65 Units/L (46-116) 02/10/19 04:45 Creatine Kinase 118 Units/L (26-192) 02/07/19 05:06 CK-MB (CK-2) < 1.0 ng/mL (0-4.0) 02/07/19 05:06 CK/CKMB % Calc 0.9 % (<4) 02/07/19 05:06 Troponin I < 0.02 ng/mL (0-1.5) 02/07/19 05:06 C-Reactive Protein 106.00 mg/L (0-3.0) H 02/03/19 17:28 Total Protein 5.6 g/dL (6.4-8.2) L 02/10/19 04:45 Albumin 2.3 g/dL (3.4-5.0) L 02/10/19 04:45 Globulin 3.3 g/dL (2.5-4.5) 02/10/19 04:45 Albumin/Globulin Ratio 0.7 Ratio (1.1-2.1) L 02/10/19 04:45 Specimen Type Catherized urine 02/03/19 21:14 Urine Color Dark yellow (YELLOW) 02/03/19 21:14 Urine Appearance Cloudy (CLEAR) 02/03/19 21:14 Urine pH 6.0 (5.0 - 8.0) 02/03/19 21:14 Ur Specific [place] 1.025 (1.000-1.030) 02/03/19 21:14 Urine Protein 4+ (NEGATIVE) 02/03/19 21:14 Urine Glucose (UA) Negative (NEGATIVE) 02/03/19 21:14 Urine Ketones 3+ (NEGATIVE) 02/03/19 21:14 Urine Occult Blood 4+ (NEGATIVE) 02/03/19 21:14 Urine Nitrite Negative (NEGATIVE) 02/03/19 21:14 Urine Bilirubin Negative (NEGATIVE) 02/03/19 21:14 Urine Urobilinogen Normal (NORMAL) 02/03/19 21:14 Ur Leukocyte Esterase 1+ (NEGATIVE) 02/03/19 21:14 Urine RBC 0-2 /HPF (NONE SEEN) 02/03/19 21:14 Urine WBC 20-30 /HPF (NONE SEEN) 02/03/19 21:14 Ur Squamous Epith Cells Rare /HPF (NEGATIVE) 02/03/19 21:14 Urine Bacteria 4+ /HPF (NEGATIVE) 02/03/19 21:14 Ur Culture Indicated? Yes/culture set up 02/03/19 21:14 - Plan (1) Rhabdomyolysis Status: Acute Qualifiers: Rhabdomyolysis type: non-traumatic Qualified Code(s): M62.82 - Rhabdomyolysis Plan: NORMAL SALINE AT 75ML/HR, CONTINUE TO MONITOR CARDIAC ENZYMES (2) Weakness Status: Acute (3) UTI (urinary tract infection) Status: Acute Qualifiers: Urinary tract infection type: acute cystitis Hematuria presence: without hematuria Qualified Code(s): N30.00 - Acute cystitis without hematuria Plan: INVANZ 1G IV DAILY, CONTINUE TO MONITOR (4) Mood disorder Status: Chronic Plan: CONTINUE SEROQUEL, CONTINUE ZOLOFT, CONTINUE TO MONITOR
[2019-02-11] MEDS: NS 1000 ML 1,000 ML IV SCH
[2019-02-11 05:27] LABS: BASOPHILS # (AUTO) 0.1 X10^3/uL (0.0-0.1); BASOPHILS % (AUTO) 1.1 % (0.2-1.0); EOSINOPHILS # (AUTO) 0.4 x10^3/uL (0.0-0.2); EOSINOPHILS % (AUTO) 8.4 % (0.9-2.9); HEMATOCRIT 34.1 % (36.0-47.0); HEMOGLOBIN 11.5 g/dL (12.0-16.0); LYMPHOCYTES # (AUTO) 1.9 X10^3/uL (1.3-2.9); LYMPHOCYTES % (AUTO) 41.6 % (21.0-51.0); MEAN CORPUSCULAR HEMOGLOBIN 31.1 pg (27.0-34.0); MEAN CORPUSCULAR HGB CONC 33.8 g/dL (33.0-35.0); MONOCYTES # (AUTO) 0.6 x10^3/uL (0.3-0.8); MONOCYTES % (AUTO) 12.5 % (0.0-13.0); NEUTROPHILS # (AUTO) 1.6 x10^3/uL (2.2-4.8); NEUTROPHILS % (AUTO) 36.4 % (42.0-75.0); PLATELET COUNT 170 X10^3/uL (150.0-450.0); RED BLOOD COUNT 3.71 X10^6/uL (3.5-5.4); RED CELL DISTRIBUTION WIDTH 13.4 % (11.6-16.5); WHITE BLOOD COUNT 4.5 X10^3/uL (3.6-10.0)
[2019-02-11 05:46] LABS: ALANINE AMINOTRANSFERASE 16 Units/L (12-78); ALBUMIN 2.3 g/dL (3.4-5.0); ALKALINE PHOSPHATASE 66 Units/L (46-116); ASPARTATE AMINO TRANSFERASE 16 Units/L (15-37); BLOOD UREA NITROGEN 3 mg/dL (7-18); CALCIUM 9.3 mg/dL (8.5-10.1); CHLORIDE 108 mmol/L (98-107); COR CA(FOR HYPOALB) 10.7 mg/dL (8.5-10.1); COR NA(FOR HYPERGLY) 144 mmol/L (136-145); CREATININE 0.92 mg/dL (0.55-1.02); SODIUM 143 mmol/L (136-145); TOTAL PROTEIN 5.6 g/dL (6.4-8.2); eGFR NON BLACK RACES > 60 (>60)
[2019-02-11] MEDS: K-DUR TAB 20 MEQ PO PRN (06:02)
[2019-02-11] MEDS ORDERED: ZOLOFT ONE (09:24)
[2019-02-11] MEDS: MILK OF MAGNESIA PO SCH (09:33)
[2019-02-11] MEDS: COREG TAB 12.5 MG PO SCH (09:34)
[2019-02-11] MEDS: INVANZ INJ 1 GM VIAL 1 GM in NS 100 ML IV + SPIKE MINIBAG* 100 ML IV SCH (09:34)
[2019-02-11] MEDS: LOVAZA PO SCH (09:34)
[2019-02-11] MEDS: ZANTAC PO SCH (09:34)
[2019-02-11] MEDS: ZOLOFT PO SCH (09:34)
[2019-02-11] MEDS: FOLIC ACID TAB 1 MG PO SCH (09:34)
[2019-02-11] MEDS: VITAMIN B-12 PO SCH (09:34)
[2019-02-11] MEDS: TAB-A-VITE PO SCH (09:34)
[2019-02-11] MEDS: ZYLOPRIM PO SCH (09:34)
[2019-02-11] MEDS: DIFLUCAN 200 MG IV PREMIX* 200 MG/100 ML BAG IV SCH (09:34)
[2019-02-11] MEDS: ASPIRIN DIPYRIDAMOLE PO SCH (09:36)
[2019-02-11 10:35] VITALS: BP 187/88
--- NOTE | 2019-02-14 11:07 | PCM.PROG ---
Progress Note - Progress Note for Day of Date of Exam: 02/09/19 - Subjective Subjective: WAS ADMITTED FOR RHABDOMYOLYSIS, WEAKNESS, AND A URINARY TRACT INFECTION DUE TO E.COLI. HER MEDICAL HISTORY INCLUDES HTN, DIABETES, CVA, AND COPD. TODAY, SHE IS ALERT AND ORIENTED, LYING IN BED ON MORNING ROUNDS. SHE CONTINUES WITH COMPLAINTS OF GENERALIZED WEAKNESS TODAY. ON EXAMINATION, HEART IS REGULAR IN RATE AND RHYTHM. BILATERAL LUNGS ARE NOTED WITH DIMINISHED LUNG SOUNDS THROUGHOUT. ABDOMEN IS ROUND, SOFT, AND NON-TENDER WITH NORMAL BOWEL SOUNDS NOTED IN ALL QUADRANTS. HER VITALS THIS MORNING ARE 98.8-94-20-92%-195/79. LABS WERE OBTAINED. ABNORMAL LAB VALUES INCLUDE THE FOLLOWING: HGB 11.4, HCT 34.2, POTASSIUM 3.4, BUN 4, GLUCOSE 135, CALCIUM 10.4, TOTAL PROTEIN 5.6, ALBUMIN 2.3. SHE IS CURRENTLY RECEIVING IV FLUIDS AND INVANZ 1G IV DAILY FOR GROWTH OF E.COLI IN URINE. WE WILL CONTINUE WITH CURRENT PLAN OF CARE TODAY AND INCREASE COREG TO 18.75MG PO BID. PHYSICAL THERAPY RECOMMENDS PHYSICAL THERAPY AND REHAB AT [facility]. WE HAVE DISCUSSED THIS WITH PATIENT AND SHE IS IN AGREEMENT WITH PLAN. CASE MANAGEMENT IS ARRANGING PLACEMENT. OTHERWISE, WE PLAN TO FOLLOW UP WITH AM LABS AND CONTINUE TO MONITOR. - Past Medical Family Social History Past Med/Fam/Surg Hx: No changes since H&P Allergies: Allergies clopidogrel [From Plavix] Allergy (Verified 09/07/18 14:47) levofloxacin [From Levaquin] Allergy (Verified 09/07/18 14:47) nitrofurantoin [From Macrodantin] Allergy (Verified 09/07/18 14:47) Penicillins Allergy (Verified 09/07/18 14:47) - Review of Systems ROS: No change since H&P - Vital Signs and I&O's Vital Signs: Temperature 97.9 F Pulse Rate [Left Brachial] 73 Pulse Rate [Right Brachial] 85 Pulse Rate 69 Respiratory Rate 18 Blood Pressure [Left Arm] 187/88 Blood Pressure [Right Arm] 137/70 Blood Pressure 139/70 O2 Sat by Pulse Oximetry 97 Intake and Output: Intake & Output 02/11/19 02/12/19 02/13/19 02/14/19 11:59 11:59 11:59 11:59 Intake Total 2501 / 2501 Balance 2501 / 2501 - Physical Exam Oriented: Normal, Person Eyes: Normal Ear: Normal Nose: Normal Throat: Normal Respiratory: Generalized, Diminished Cardiovascular: Tachycardia. negative: S3, S4, Murmur : Normal Auscultation: Bowel Sounds: Normal Tenderness: Normal Skin: Normal Musculoskeletal: Leg, Tender Psychiatric: Normal Mood Description: Calm Affect: Normal Speech Pattern: Clear, Appropriate - Laboratory and Diagnostics Result Diagrams: 02/11/19 04:56 02/11/19 04:56 Labs: 02/03/19 17:28 Blood Blood Culture - Final 02/03/19 21:14 Urine,Catheterized Urine Culture - Final Escherichia Coli Laboratory WBC 4.5 X10^3/uL (3.6-10.0) 02/11/19 04:56 RBC 3.71 X10^6/uL (3.5-5.4) 02/11/19 04:56 Hgb 11.5 g/dL (12.0-16.0) L 02/11/19 04:56 Hct 34.1 % (36.0-47.0) L 02/11/19 04:56 MCV 92.0 fL (80.0-100.0) 02/11/19 04:56 MCH 31.1 pg (27.0-34.0) 02/11/19 04:56 MCHC 33.8 g/dL (33.0-35.0) 02/11/19 04:56 RDW 13.4 % (11.6-16.5) 02/11/19 04:56 Plt Count 170 X10^3/uL (150.0-450.0) 02/11/19 04:56 MPV 9.0 fL (7.4-11.0) 02/11/19 04:56 Neut % (Auto) 36.4 % (42.0-75.0) L 02/11/19 04:56 Lymph % (Auto) 41.6 % (21.0-51.0) 02/11/19 04:56 [place] % (Auto) 12.5 % (0.0-13.0) 02/11/19 04:56 Eos % (Auto) 8.4 % (0.9-2.9) H 02/11/19 04:56 Baso % (Auto) 1.1 % (0.2-1.0) H 02/11/19 04:56 Neut # (Auto) 1.6 x10^3/uL (2.2-4.8) L 02/11/19 04:56 Lymph # (Auto) 1.9 X10^3/uL (1.3-2.9) 02/11/19 04:56 [place] # (Auto) 0.6 x10^3/uL (0.3-0.8) 02/11/19 04:56 Eos # (Auto) 0.4 x10^3/uL (0.0-0.2) H 02/11/19 04:56 Baso # (Auto) 0.1 X10^3/uL (0.0-0.1) 02/11/19 04:56 Absolute Nucleated RBC 0.1 /100WBC 02/11/19 04:56 Sodium 143 mmol/L (136-145) 02/11/19 04:56 Corrected Sodium 144 mmol/L (136-145) 02/11/19 04:56 Potassium 3.5 mmol/L (3.5-5.1) 02/11/19 04:56 Chloride 108 mmol/L (98-107) H 02/11/19 04:56 Carbon Dioxide 27.0 mmol/L (21-32) 02/11/19 04:56 BUN 3 mg/dL (7-18) L 02/11/19 04:56 Creatinine 0.92 mg/dL (0.55-1.02) 02/11/19 04:56 Est GFR (MDRD) Af Amer > 60 (>60) 02/11/19 04:56 Est GFR (MDRD) Non-Af > 60 (>60) 02/11/19 04:56 Glucose 131 mg/dL (65-99) H 02/11/19 04:56 POC Glucose (mg/dL) 119 mg/dL (65-99) H 02/11/19 05:37 Lactic Acid 1.5 mmol/L (0.4-2.0) 02/03/19 17:28 Calcium 9.3 mg/dL (8.5-10.1) 02/11/19 04:56 Corrected Calcium 10.7 mg/dL (8.5-10.1) H 02/11/19 04:56 Magnesium 2.0 mg/dL (1.7-2.9) 02/10/19 05:15 Total Bilirubin 0.10 mg/dL (0.2-1.0) L 02/11/19 04:56 AST 16 Units/L (15-37) 02/11/19 04:56 ALT 16 Units/L (12-78) 02/11/19 04:56 Alkaline Phosphatase 66 Units/L (46-116) 02/11/19 04:56 Creatine Kinase 118 Units/L (26-192) 02/07/19 05:06 CK-MB (CK-2) < 1.0 ng/mL (0-4.0) 02/07/19 05:06 CK/CKMB % Calc 0.9 % (<4) 02/07/19 05:06 Troponin I < 0.02 ng/mL (0-1.5) 02/07/19 05:06 C-Reactive Protein 106.00 mg/L (0-3.0) H 02/03/19 17:28 Total Protein 5.6 g/dL (6.4-8.2) L 02/11/19 04:56 Albumin 2.3 g/dL (3.4-5.0) L 02/11/19 04:56 Globulin 3.3 g/dL (2.5-4.5) 02/11/19 04:56 Albumin/Globulin Ratio 0.7 Ratio (1.1-2.1) L 02/11/19 04:56 Specimen Type Catherized urine 02/03/19 21:14 Urine Color Dark yellow (YELLOW) 02/03/19 21:14 Urine Appearance Cloudy (CLEAR) 02/03/19 21:14 Urine pH 6.0 (5.0 - 8.0) 02/03/19 21:14 Ur Specific [place] 1.025 (1.000-1.030) 02/03/19 21:14 Urine Protein 4+ (NEGATIVE) 02/03/19 21:14 Urine Glucose (UA) Negative (NEGATIVE) 02/03/19 21:14 Urine Ketones 3+ (NEGATIVE) 02/03/19 21:14 Urine Occult Blood 4+ (NEGATIVE) 02/03/19 21:14 Urine Nitrite Negative (NEGATIVE) 02/03/19 21:14 Urine Bilirubin Negative (NEGATIVE) 02/03/19 21:14 Urine Urobilinogen Normal (NORMAL) 02/03/19 21:14 Ur Leukocyte Esterase 1+ (NEGATIVE) 02/03/19 21:14 Urine RBC 0-2 /HPF (NONE SEEN) 02/03/19 21:14 Urine WBC 20-30 /HPF (NONE SEEN) 02/03/19 21:14 Ur Squamous Epith Cells Rare /HPF (NEGATIVE) 02/03/19 21:14 Urine Bacteria 4+ /HPF (NEGATIVE) 02/03/19 21:14 Ur Culture Indicated? Yes/culture set up 02/03/19 21:14 - Plan (1) Rhabdomyolysis Status: Acute Qualifiers: Rhabdomyolysis type: non-traumatic Qualified Code(s): M62.82 - Rhabdomyolysis Plan: NORMAL SALINE AT 75ML/HR, CONTINUE TO MONITOR CARDIAC ENZYMES (2) Weakness Status: Acute (3) UTI (urinary tract infection) Status: Acute Qualifiers: Urinary tract infection type: acute cystitis Hematuria presence: without hematuria Qualified Code(s): N30.00 - Acute cystitis without hematuria Plan: INVANZ 1G IV DAILY, CONTINUE TO MONITOR (4) Mood disorder Status: Chronic Plan: CONTINUE SEROQUEL, CONTINUE ZOLOFT, CONTINUE TO MONITOR (5) Hypertension Status: Acute Qualifiers: Hypertension type: essential hypertension Qualified Code(s): I10 - Essential (primary) hypertension Plan: COREG 18.75MG PO BID, CONTINUE TO MONITOR
--- NOTE | 2019-02-14 11:14 | PCM.PROG ---
Progress Note - Progress Note for Day of Date of Exam: 02/10/19 - Subjective Subjective: WAS ADMITTED FOR RHABDOMYOLYSIS, WEAKNESS, AND A URINARY TRACT INFECTION DUE TO E.COLI. TODAY, SHE IS ALERT AND ORIENTED, LYING IN BED ON MORNING ROUNDS. SHE CONTINUES WITH COMPLAINTS OF GENERALIZED WEAKNESS TODAY. ON EXAMINATION, HEART IS REGULAR IN RATE AND RHYTHM. BILATERAL LUNGS ARE NOTED WITH DIMINISHED LUNG SOUNDS THROUGHOUT. ABDOMEN IS ROUND, SOFT, AND NON-TENDER WITH NORMAL BOWEL SOUNDS NOTED IN ALL QUADRANTS. HER VITALS THIS MORNING ARE 98.1-76-20-97%-140/84. LABS WERE OBTAINED. ABNORMAL LAB VALUES INCLUDE THE FOLLOWING: HGB 11.8, HCT 35.0, POTASSIUM 3.4, BUN 2, GLUCOSE 167, TOTAL PROTEIN 5.6, ALBUMIN 2.3. SHE IS CURRENTLY RECEIVING IV FLUIDS AND INVANZ 1G IV DAILY F OR GROWTH OF E.COLI IN URINE. SHE IS COOPERATING WELL WITH PHYSICAL THERAPY, BUT THEY HAVE RECOMMENDED ADDITIONAL THERAPY THROUGH [facility]. CASE MANAGEMENT IS ARRANGING PLACEMENT. WE WILL CONTINUE WITH CURRENT PLAN OF CARE TODAY. OTHERWISE, WE PLAN TO FOLLOW UP WITH AM LABS AND CONTINUE TO MONITOR. - Past Medical Family Social History Past Med/Fam/Surg Hx: No changes since H&P Allergies: Allergies clopidogrel [From Plavix] Allergy (Verified 09/07/18 14:47) levofloxacin [From Levaquin] Allergy (Verified 09/07/18 14:47) nitrofurantoin [From Macrodantin] Allergy (Verified 09/07/18 14:47) Penicillins Allergy (Verified 09/07/18 14:47) - Review of Systems ROS: No change since H&P - Vital Signs and I&O's Vital Signs: Temperature 97.9 F Pulse Rate [Left Brachial] 73 Pulse Rate [Right Brachial] 85 Pulse Rate 69 Respiratory Rate 18 Blood Pressure [Left Arm] 187/88 Blood Pressure [Right Arm] 137/70 Blood Pressure 139/70 O2 Sat by Pulse Oximetry 97 Intake and Output: Intake & Output 02/11/19 02/12/19 02/13/19 02/14/19 11:59 11:59 11:59 11:59 Intake Total 2501 / 2501 Balance 2501 / 2501 - Physical Exam Oriented: Normal, Person Eyes: Normal Ear: Normal Nose: Normal Throat: Normal Respiratory: Generalized, Diminished Cardiovascular: Tachycardia. negative: S3, S4, Murmur : Normal Auscultation: Bowel Sounds: Normal Tenderness: Normal Skin: Normal Musculoskeletal: Leg, Tender Psychiatric: Normal Mood Description: Calm Affect: Normal Speech Pattern: Clear, Appropriate - Laboratory and Diagnostics Result Diagrams: 02/11/19 04:56 02/11/19 04:56 Labs: 02/03/19 17:28 Blood Blood Culture - Final 02/03/19 21:14 Urine,Catheterized Urine Culture - Final Escherichia Coli Laboratory WBC 4.5 X10^3/uL (3.6-10.0) 02/11/19 04:56 RBC 3.71 X10^6/uL (3.5-5.4) 02/11/19 04:56 Hgb 11.5 g/dL (12.0-16.0) L 02/11/19 04:56 Hct 34.1 % (36.0-47.0) L 02/11/19 04:56 MCV 92.0 fL (80.0-100.0) 02/11/19 04:56 MCH 31.1 pg (27.0-34.0) 02/11/19 04:56 MCHC 33.8 g/dL (33.0-35.0) 02/11/19 04:56 RDW 13.4 % (11.6-16.5) 02/11/19 04:56 Plt Count 170 X10^3/uL (150.0-450.0) 02/11/19 04:56 MPV 9.0 fL (7.4-11.0) 02/11/19 04:56 Neut % (Auto) 36.4 % (42.0-75.0) L 02/11/19 04:56 Lymph % (Auto) 41.6 % (21.0-51.0) 02/11/19 04:56 [place] % (Auto) 12.5 % (0.0-13.0) 02/11/19 04:56 Eos % (Auto) 8.4 % (0.9-2.9) H 02/11/19 04:56 Baso % (Auto) 1.1 % (0.2-1.0) H 02/11/19 04:56 Neut # (Auto) 1.6 x10^3/uL (2.2-4.8) L 02/11/19 04:56 Lymph # (Auto) 1.9 X10^3/uL (1.3-2.9) 02/11/19 04:56 [place] # (Auto) 0.6 x10^3/uL (0.3-0.8) 02/11/19 04:56 Eos # (Auto) 0.4 x10^3/uL (0.0-0.2) H 02/11/19 04:56 Baso # (Auto) 0.1 X10^3/uL (0.0-0.1) 02/11/19 04:56 Absolute Nucleated RBC 0.1 /100WBC 02/11/19 04:56 Sodium 143 mmol/L (136-145) 02/11/19 04:56 Corrected Sodium 144 mmol/L (136-145) 02/11/19 04:56 Potassium 3.5 mmol/L (3.5-5.1) 02/11/19 04:56 Chloride 108 mmol/L (98-107) H 02/11/19 04:56 Carbon Dioxide 27.0 mmol/L (21-32) 02/11/19 04:56 BUN 3 mg/dL (7-18) L 02/11/19 04:56 Creatinine 0.92 mg/dL (0.55-1.02) 02/11/19 04:56 Est GFR (MDRD) Af Amer > 60 (>60) 02/11/19 04:56 Est GFR (MDRD) Non-Af > 60 (>60) 02/11/19 04:56 Glucose 131 mg/dL (65-99) H 02/11/19 04:56 POC Glucose (mg/dL) 119 mg/dL (65-99) H 02/11/19 05:37 Lactic Acid 1.5 mmol/L (0.4-2.0) 02/03/19 17:28 Calcium 9.3 mg/dL (8.5-10.1) 02/11/19 04:56 Corrected Calcium 10.7 mg/dL (8.5-10.1) H 02/11/19 04:56 Magnesium 2.0 mg/dL (1.7-2.9) 02/10/19 05:15 Total Bilirubin 0.10 mg/dL (0.2-1.0) L 02/11/19 04:56 AST 16 Units/L (15-37) 02/11/19 04:56 ALT 16 Units/L (12-78) 02/11/19 04:56 Alkaline Phosphatase 66 Units/L (46-116) 02/11/19 04:56 Creatine Kinase 118 Units/L (26-192) 02/07/19 05:06 CK-MB (CK-2) < 1.0 ng/mL (0-4.0) 02/07/19 05:06 CK/CKMB % Calc 0.9 % (<4) 02/07/19 05:06 Troponin I < 0.02 ng/mL (0-1.5) 02/07/19 05:06 C-Reactive Protein 106.00 mg/L (0-3.0) H 02/03/19 17:28 Total Protein 5.6 g/dL (6.4-8.2) L 02/11/19 04:56 Albumin 2.3 g/dL (3.4-5.0) L 02/11/19 04:56 Globulin 3.3 g/dL (2.5-4.5) 02/11/19 04:56 Albumin/Globulin Ratio 0.7 Ratio (1.1-2.1) L 02/11/19 04:56 Specimen Type Catherized urine 02/03/19 21:14 Urine Color Dark yellow (YELLOW) 02/03/19 21:14 Urine Appearance Cloudy (CLEAR) 02/03/19 21:14 Urine pH 6.0 (5.0 - 8.0) 02/03/19 21:14 Ur Specific [place] 1.025 (1.000-1.030) 02/03/19 21:14 Urine Protein 4+ (NEGATIVE) 02/03/19 21:14 Urine Glucose (UA) Negative (NEGATIVE) 02/03/19 21:14 Urine Ketones 3+ (NEGATIVE) 02/03/19 21:14 Urine Occult Blood 4+ (NEGATIVE) 02/03/19 21:14 Urine Nitrite Negative (NEGATIVE) 02/03/19 21:14 Urine Bilirubin Negative (NEGATIVE) 02/03/19 21:14 Urine Urobilinogen Normal (NORMAL) 02/03/19 21:14 Ur Leukocyte Esterase 1+ (NEGATIVE) 02/03/19 21:14 Urine RBC 0-2 /HPF (NONE SEEN) 02/03/19 21:14 Urine WBC 20-30 /HPF (NONE SEEN) 02/03/19 21:14 Ur Squamous Epith Cells Rare /HPF (NEGATIVE) 02/03/19 21:14 Urine Bacteria 4+ /HPF (NEGATIVE) 02/03/19 21:14 Ur Culture Indicated? Yes/culture set up 02/03/19 21:14 - Plan (1) Rhabdomyolysis Status: Acute Qualifiers: Rhabdomyolysis type: non-traumatic Qualified Code(s): M62.82 - Rhabdomyolysis Plan: NORMAL SALINE AT 75ML/HR, CONTINUE TO MONITOR CARDIAC ENZYMES (2) Weakness Status: Acute (3) UTI (urinary tract infection) Status: Acute Qualifiers: Urinary tract infection type: acute cystitis Hematuria presence: without hematuria Qualified Code(s): N30.00 - Acute cystitis without hematuria Plan: INVANZ 1G IV DAILY, CONTINUE TO MONITOR (4) Mood disorder Status: Chronic Plan: CONTINUE SEROQUEL, CONTINUE ZOLOFT, CONTINUE TO MONITOR (5) Hypertension Status: Acute Qualifiers: Hypertension type: essential hypertension Qualified Code(s): I10 - Essential (primary) hypertension Plan: COREG 18.75MG PO BID, CONTINUE TO MONITOR
== END 2019-02-11 11:40 | DRG 558 ==
LOC: ER 15:08 → MED/SURG 15:08 → OBSVTOIN 21:00 → MED/SURG 22:29
PROVIDERS: ADMIT Internal Medicine; ATTEND Internal Medicine
DX: E86.0 Dehydration; J44.9 Chronic obstructive pulmonary disease, unspecified; R32 Unspecified urinary incontinence; R26.89 Other abnormalities of gait and mobility; R06.02 Shortness of breath; E11.65 Type 2 diabetes mellitus with hyperglycemia; R94.30 Abnormal result of cardiovascular function study, unspecified; I10 Essential (primary) hypertension; R60.0 Localized edema; R79.82 Elevated C-reactive protein (CRP); N30.00 Acute cystitis without hematuria; M62.82 Rhabdomyolysis
CPT/HCPCS: 36415; 51702; 70450; 71010; 71045; 80053; 81001; 82550; 82553; 83605; 83735; 84484; 85025; 86140; 87040; 87086; 87088; 87186; 93005; 93306; 94760; 96365; 97116; 97162; 97166; 97530; 97535; 99284; A4222; J0696; J1335; J1450; J1815; J1885; J3475; J7030; J7050